=== PATIENT | male | born 1955 | race Caucasian/White ===

== ENCOUNTER 2018-10-04 08:34 | Inpatient (IN) ==
--- NOTE | 2018-10-04 10:08 | PROVIDER DOCUMENTATION ---
HPI-General Adult - General Chief Complaint: Dizziness Stated Complaint: GENERAL Time Seen by Provider: 10/04/18 09:09 Source: patient Allergies/Adverse Reactions: Patient Allergies Allergy/AdvReac Type Severity Reaction Status Date / Time No Known Allergies Allergy Verified 04/25/18 16:14 Home Medications: Home Medication List Medication Instructions Recorded Confirmed Last Taken Type Amiloride [Midamor] 5 mg PO DAILY 04/25/18 08/23/18 08/22/18 History Citalopram [Celexa] 20 mg PO QHS 04/25/18 08/23/18 08/22/18 History Furosemide [Lasix] 80 mg PO DAILY 04/25/18 08/23/18 08/22/18 History Levothyroxine [Synthroid] 112 microgm PO DAILY 04/25/18 08/23/18 08/22/18 History Losartan [Cozaar] 25 mg PO DAILY 04/25/18 08/23/18 08/22/18 History Nadolol 10 mg PO DAILY 04/25/18 08/23/18 08/22/18 History Lactulose 30 ml PO BID #40 udc 04/28/18 08/23/18 08/22/18 Rx Multivit,Fe,Ca,FA & Min [Thera M 1 each PO DAILY tablet 04/28/18 08/23/1808/22 Rx Plus] Rifaximin [Xifaxan] 550 mg PO BID #40 tab 04/28/18 08/23/18 08/22/18 Rx - History of Present Illness -Gen Adult Nature of Presenting Problems: feels lightheaded for 2 days. Sx are constant, nothing makes better nor worse, Denies vertigo. No fever, no headache. No CP, no palpitations, no SOB. Has nausea, no vomiting, no abd pain. Legs are weak, swollen for 3 days.. Says hx of cirrhosis, high ammonia, is on lactulose. Review of Systems - Adult - REVIEW OF SYSTEMS - ADULT Constitutional: reports: see HPI Eyes: reports: no symptoms reported Ears, Nose, Mouth & Throat: reports: no symptoms reported Cardiovascular: reports: see HPI, edema Respiratory: reports: no symptoms reported Gastrointestinal: reports: see HPI Genitourinary: reports: no symptoms reported Musculoskeletal: reports: see HPI Integumentary: reports: no symptoms reported Neurological: reports: see HPI Psychiatric: reports: no symptoms reported Endocrine: reports: no symptoms reported Hematologic/Lymphatic: reports: no symptoms reported Allergic/Immunologic: reports: no symptoms reported Past History - Adult - PAST MEDICAL HISTORY-ADULT Review of Records: reports: Medications Reviewed Gastrointestinal: reports: other (liver cirrhosis) Physical Exam-General - PHYSICAL EXAM-ADULT Initial Vital Signs Reviewed: Yes - CONSTITUTIONAL General Appearance: alert, other (chronically ill) - EYES Eyes: PERRL/EOMI, pink conjunctivae - HEAD, EARS, NOSE, MOUTH & THROAT HENMT: normocephalic/atraumatic, moist mucous membranes, normal ENT inspection, pharynx normal - NECK Neck: non-tender, full range of motion, supple - RESPIRATORY Respiratory: lungs clear, normal breath sounds, no pleuratic chest pain, no res piratory distress, no accessory muscle use - CARDIOVASCULAR Cardiovascular: regular rate, rhythm, other (4+ LE edema, extends to abd) - GASTROINTESTINAL (ABDOMEN) Abdominal Exam: normal bowel sounds, soft, other (mild LLQ tenderness) - MUSCULOSKELETAL Back Exam: normal inspection, no CVA tenderness, no vertebral tenderness Extremity: normal range of motion, non-tender - SKIN Integumentary: normal color, normal turgor, warm/dry, pallor - NEUROLOGIC Neurologic: grossly normal, no motor/sensory deficits, other (CN II-XII intact, DTRs intact. no asterixsis. Holds all extremities in extension well) - PSYCHIATRIC Psych/Mental Status: normal mood/affect, normal thought content, normal thought process, oriented x 3 Progress - PLAN OF CARE/RESULTS Progress/Plan/Lab Results: Vital Signs - 8 hr 10/04/18 08:40 Temperature 97.7 F Pulse Rate 76 Respiratory Rate 24 Blood Pressure 153/71 O2 Sat by Pulse Oximetry 100 Laboratory Results - last 24 hr 10/04/18 09:24 POC Glucose 134 H Orders Category Date Time Status CHEST-1 VIEW [RAD] Stat Exams 10/04/18 09:[address] HEAD W/O CONTRAST [CT] Stat Exams 10/04/18 09:56 Ordered ACETAMINOPHEN [TDM] Stat Lab 10/04/18 09:56 Uncollected ALCOHOL BLOOD Stat Lab 10/04/18 09:56 Uncollected AMMONIA [CHEM] Stat Lab 10/04/18 09:56 Uncollected CBC WITH DIFF [HEME] Stat Lab 10/04/18 09:56 Uncollected COMPREHENSIVE METABOLIC PANEL [CHEM] Stat Lab 10/04/18 09:56 Uncollected MAGNESIUM [CHEM] Stat Lab 10/04/18 09:56 Uncollected PHOSPHORUS [CHEM] Stat Lab 10/04/18 09:56 Uncollected SALICYLATES [TDM] Stat Lab 10/04/18 09:56 Uncollected URINALYSIS W/POSS RFLX CULT [URINALYSIS] Stat Lab 10/04/18 09:56 Uncollected Result Diagrams: 10/04/18 09:08 10/04/18 09:08 - CONSULTS/PCP/HOSPITALIST Notification #1 *Consult/PCP/Hospitalist*: Junaid Time Discussed: 13:08 Consult Disposition: Admit Departure - Departure Date of Disposition Decision: 10/04/18 Time of Disposition Decision: 13:10 DIAGNOSIS: Increased ammonia level Altered mental status Qualifiers: Altered mental status type: disorientation Qualified Code(s): R41.0 - Di sorientation, unspecified Anemia Qualifiers: Anemia type: other cause Other causes of anemia: other cause, not classified Qualified Code(s): D64.89 - Other specified anemias Cirrhosis Qualifiers: Hepatic cirrhosis type: unspecified hepatic cirrhosis Ascites presence: with ascites Qualified Code(s): K74.60 - Unspecified cirrhosis of liver; R18.8 - Other ascites Disposition: ADMITTED INPATIENT 09 Certified Medical Emergency: Emergent Condition: Good Referrals and Follow-Ups: Artem Quiroga MD [Primary Care Provider] - - Critical Care Note This patient required my direct & personal management of CC.: No Attestation - Physician/ HENNA Attestation Patient care was provided by Advanced Practice Provider:: No The physician spent face to face time with patient:: Yes Advanced Practice Provider documentation review:: Supervising physician onsite and consulted in the evaluation and care of this patient. The physician did have a face to face encounter with the patient.
--- NOTE | 2018-10-04 10:11 | ED EKG INTERP ---
This chart was entered by Briseida Doyle Scribe, acting as scribe for Cliff Adam MD. EKG Interpretation - EKG Time of EKG reading by physician:: 08:49 EKG Read and Signed by:: Cliff Adam EKG Interpretation (*Must complete 3 of following elements*): Normal (borderline) Rate: 69 Rhythm: nsr Sparks: normal QRS: other (low voltage qrs) GA Interval: normal ST Wave: normal Attestation - Physician/ HENNA Attestation Patient care was provided by Advanced Practice Provider:: No The physician spent face to face time with patient:: Yes Advanced Practice Provider documentation review:: Supervising physician onsite and consulted in the evaluation and care of this patient. The physician did have a face to face encounter with the patient. This chart was documented by the indicated scribe, (Briseida Doyle Scribe) and accurately reflects the services I performed and decisions made by me, Cliff Adam MD, as attested by the provider's signature.
--- NOTE | 2018-10-04 10:19 | Diag Imaging Result Doc PS360 ---
CHEST-1 VIEW - 10/04/2018 INDICATION: ams COMPARISON: 04/25/2018 FINDINGS: The lungs are normally expanded and clear. Heart size and mediastinal contours are normal. No pneumothorax or pleural effusion. IMPRESSION: Negative exam. Electronically signed by Kevin Mojica 10/04/2018 10:16 AM
[2018-10-04 10:26] LABS: BASO# 0.02 X1000 (0.0-0.2); BASO% 0.6 % (0.0-0.8); EOS# 0.12 X1000 (0.0-0.7); EOS% 3.4 % (0.0-10.0); HEMATOCRIT 22.6 % (42.0-52.0); HEMOGLOBIN 7.4 g/dL (14.0-18.0); IMM GRAN# 0.02 X1000 (0.0-0.04); IMM GRAN% 0.6 % (0.0-0.5); LYMPH# 0.56 X1000 (1.2-3.4); LYMPH% 16.1 % (20.5-51.1); MCH 30.5 PG (27-31); MCHC 32.7 g/dL (33-37); MONO# 0.41 X1000 (0.11-0.59); MONO% 11.8 % (1.7-9.3); MPV 9.7 FL (7.4-10.4); NEUT# 2.35 X1000 (1.4-6.5); NEUT% 67.5 % (42.2-75.2); PLT 101 X1000 (130-400); RBC 2.43 XMIL (4.7-6.1); RDW 14.8 % (11.5-14.5); WBC 3.48 X1000 (4.8-10.8)
--- NOTE | 2018-10-04 10:44 | Diag Imaging Result Doc PS360 ---
EXAM: CT HEAD W/O CONTRAST 10/04/2018 HISTORY: AMS TECHNIQUE: This exam was performed using automated exposure control, adjustment of mA or kV according to patient size, and/or use of iterative reconstruction technique. COMMENT: There are calcifications in the globus pallidus bilaterally. There is no evidence of mass effect, bleed, or abnormal extra-axial fluid collection. There is some mucosal thickening in the right maxillary sinus. Compared to 04/25/2018 the appearance the brain has not changed significantly. IMPRESSION: No evidence of acute intracranial disease. Electronically signed by Guy Buchanan 10/04/2018 10:42 AM
[2018-10-04 11:00] LABS: URINE SOURCE CLEAN CATCH
[2018-10-04 11:02] LABS: ACETAMINOPHEN < 1.2 ug/mL (10-30); AGAP 7; ALB/GLOB RATIO 0.5; ALKALINE PHOSPHATASE 134 U/L (32-122); BUN 24 mg/dL (8-22); CHLORIDE 111 mmol/L (98-107); COSMO 276; CREATININE 1.6 mg/dL (0.7-1.2); ESTIMATED GFR 44; GLUCOSE 133 mg/dL (70-104); GOT 35 U/L (10-34); GPT 20 U/L (10-44); MAGNESIUM 2.2 mg/dL (1.5-2.7); PHOSPHORUS 2.6 mg/dL (2.7-4.5); POTASSIUM 4.3 mmol/L (3.5-5.1); SALICYLATES < 3.00 mg/dL (3-10); SODIUM 135 mmol/L (136-145); TCO2 17 mmol/L (25-35); TOTAL BILIRUBIN 2.13 mg/dL (0.20-1.00); TOTAL PROTEIN 5.7 g/dL (6.3-8.3)
[2018-10-04 11:08] LABS: UR EPITHELIAL CELLS <10 /HPF (<10); URINE BACTERIA NEGATIVE /HPF; URINE RBC TNTC /HPF (<10); URINE WBC <10 /HPF (<10)
[2018-10-04 11:23] LABS: BILIRUBIN URINE NEGATIVE (NEGATIVE); BLOOD URINE LARGE (NEGATIVE); COLOR ORANGE; GLUCOSE URINE NEGATIVE (NEGATIVE); KETONE URINE TRACE mg/dL (NEGATIVE); LEUKOCYTES URINE NEGATIVE (NEGATIVE); NITRITE URINE NEGATIVE (NEGATIVE); PROTEIN URINE 70 mg/dL (NEGATIVE); SP GRAVITY URINE 1.018; TURBIDITY URINE HAZY (CLEAR); UROBILINOGEN URINE NORMAL (NORMAL)
--- NOTE | 2018-10-04 11:56 | EKG Report ---
Test Performed on : 10/04/2018 08:49:49 AM Test Reason : ED. NO EKG ORDER FOR MUSE Blood Pressure : / mmHG Vent. Rate : 069 BPM Atrial Rate : 069 BPM P-R Int : 168 ms QRS Dur : 100 ms QT Int : 446 ms P-R-T Axes : 031 -06 042 degrees QTc Int : 477 ms Normal sinus rhythm. Low voltage QRS Borderline ECG When compared with ECG of 25-APR-2018 10:38, QRS voltage has decreased Nonspecific T wave abnormality now evident in Inferior leads Nonspecific T wave abnormality now evident in Anterior leads Unconfirmed Result
[2018-10-04 12:32] LABS: UR AMPHETAMINES QUAL NONE DETECTED (NONE DETECT); UR BARBITUATES QUAL NONE DETECTED (NONE DETECT); UR BENZODIAZEPIN QUAL NONE DETECTED (NONE DETECT); UR CANNABINOIDS QUAL NONE DETECTED (NONE DETECT); UR COCAINE QUAL NONE DETECTED (NONE DETECT); UR METHADONE QUAL NONE DETECTED (NONE DETECT); UR OPIATES QUAL NONE DETECTED (NONE DETECT); UR OXYCODONE QUAL NONE DETECTED (NONE DETECT); UR PCP QUAL NONE DETECTED (NONE DETECT)
[2018-10-04] MEDS ORDERED: NS 1,000 ML IV ONE (13:51)
[2018-10-04 13:53] LABS: INR 1.77; PROTIME 21.9 Seconds (11.0-16.0)
[2018-10-04 13:54] LABS: PTT 53.6 Seconds (22.3-41.8)
[2018-10-04] MEDS ORDERED: SODIUM CHLORIDE 0.9% INJ SCH (15:30)
[2018-10-04] MEDS ORDERED: XIFAXAN PO ONE (16:41)
[2018-10-04] MEDS ORDERED: LACTULOSE PO ONE (16:41)
[2018-10-04] MEDS: PROTONIX IV SCH (17:22)
[2018-10-04] MEDS: LACTULOSE PO SCH (21:07)
[2018-10-04] MEDS: XIFAXAN PO SCH (21:07)
[2018-10-04] MEDS: CELEXA PO SCH (21:07)
--- NOTE | 2018-10-04 22:32 | HISTORY AND PHYSICAL ---
CHIEF COMPLAINT: Dizziness and confusion. HISTORY OF PRESENT ILLNESS: The patient is a 62-year-old white male, followed by myself and by Dr. Hall. He suffers from cirrhosis of the liver related to FLORES. The patient has hepatic encephalopathy, which is followed by Dr. Hall and he remains on without b.i.d. dosing on Xifaxan and lactulose 30 mL b.i.d. Patient has been taking the Xifaxan as Dr. Hall has been giving him samples as in the past his insurance was not covering the Xifaxan. MEDICATIONS: Otherwise, the patient remains on Synthroid 112 mcg daily, Celexa 20 mg p.o. at bedtime, amiloride 12.5 mg p.o. daily, Lasix 80 mg p.o. daily, losartan 25 mg p.o. daily, nadolol 20 mg p.o. daily, spironolactone 20 mg P.o. daily, Xifaxan and 551 p.o. b.i.d. ALLERGIES: NKDA. PAST MEDICAL HISTORY: 1. Cirrhosis of the liver with hepatic encephalopathy and esophageal varices, followed by Dr. Hall. 2. Chronic back pain. 3. Hypothyroidism diagnosed March 2010. 4. B12 deficiency. 5. Hypertension. PAST SURGICAL HISTORY: 1. L3, L4, L5 fusion in 1997. 2. Lumbar laminectomy x2. 3. Right inguinal hernia repair, October 2015. 4. Umbilical hernia repair, March 2016. FAMILY HISTORY: Notable for father with NV at age 79. No strokes, diabetes, hypertension or cancer in the family. SOCIAL HISTORY: The patient lives in [place]. He has been within the past year and a half. He has 2 children. He is on disability secondary to his back and the cirrhosis. He has never been a smoker. Does not drink alcohol. REVIEW OF SYSTEMS: Negative except as above. PHYSICAL EXAMINATION: VITAL SIGNS: See chart. GENERAL: Moderately obese white male. SKIN: No major bruises. No petechia. HEENT: PERRL, EOMI. Sclerae anicteric. OP, no redness. Tongue in the midline. NECK: No LA, TMG, JVD, bruits. CARDIOVASCULAR: RRR. No major distinct murmur. LUNGS: CTA. ABDOMEN: Protuberant, soft. Does appear to be some ascites. GENITOURINARY/RECTAL: Deferred. EXTREMITIES: One to 2+ lower extremity edema. NEUROLOGIC: Cranial nerves 2-12 are intact, nonfocal. The patient is alert and oriented x3. Does show signs of mild confusion. LABORATORY DATA: Urine drug screen is negative. Blood alcohol level negative. Acetaminophen less than 1.2. Salicylates less than 3. Sodium 135, potassium 4.3, chloride 111, CO2 of 17, glucose 133, BUN 24, creatinine 1.6. Calcium 8.0, total bilirubin 2.13, total protein 5.7, albumin 2.0, alkaline phosphatase 134, SGOT 35, SGPT 20, magnesium 2.2, phosphorus 2.6, ammonia 91. Hemoglobin 7.4, hematocrit 22.6, white count 3.48, platelets 101,000. Chest x-ray, 1 view, negative exam. CT head without contrast reveals no evidence of acute intracranial disease, there are some calcifications in the globus pallidus bilaterally. ASSESSMENT: 1. Confusion, thought related to hepatic encephalopathy. 2. Pronounced anemia. 3. Esophageal varices with no history of recent bleed, per patient report. 4. Cirrhosis of the liver related to FLORES. 5. Hypertension. 6. Hypothyroidism. 7. History of B12 deficiency. 8. Chronic back pain. 9. Pancytopenia. PLAN: Will leave off his diuretics tonight. Otherwise, continue his other medications and will resume the diuretics tomorrow. He has received a little mild hydration due to the dizziness and we will give him 2 units PRBCs, each units transfused over 4 hours each. We will continue the Xifaxan and lactulose vigorously. We will place him on IV PPI and check Hemoccult of the stool. We will monitor his ammonia level closely. cc: Artem Quiroga MD
[2018-10-05] MEDS: SYNTHROID PO SCH (06:40)
[2018-10-05 07:59] LABS: CALCIUM 8.2 mg/dL (8.8-10.2); CREATININE 1.5 mg/dL (0.7-1.2); POTASSIUM 4.2 mmol/L (3.5-5.1)
[2018-10-05 08:08] LABS: HEMATOCRIT 25.6 % (42.0-52.0); HEMOGLOBIN 8.5 g/dL (14.0-18.0); MCH 31.6 PG (27-31); MCHC 33.2 g/dL (33-37); MCV 95.2 FL (81-99); MPV 10.4 FL (7.4-10.4); RBC 2.69 XMIL (4.7-6.1); RDW 15.1 % (11.5-14.5); WBC 5.59 X1000 (4.8-10.8)
--- NOTE | 2018-10-05 08:58 | PROGRESS NOTE ---
DATE: 10/05/2018 SUBJECTIVE: Patient feels clear with his mentation. He denies abdominal pain. He has not seen any blood rectally, but he does test heme-positive for blood. OBJECTIVE: Afebrile. Pulse 67, respirations 19, blood pressure 117/46, and O2 saturation on 2 L is 100%.CV: RRR. Lungs: Clear. Abdomen: Protuberant. Some ascites noted. No point tenderness. Extremities: Trace to 1+ lower extremity edema. Neurologic: Nonfocal. Patient does not seem confused today compared to yesterday. He is improved. LABORATORY: White count 5.5, hemoglobin 8.5 after 2 units PRBCs transfused last evening. Platelet count 98,000. Sodium 136, potassium 4.2, chloride 112, CO2 18. BUN 22, creatinine 1.5, calcium 8.2. Ammonia down to 53. ASSESSMENT: 1. Hepatic encephalopathy with confusion, improved. 2. Pronounced anemia with heme-positive stool. 3. Esophageal varices with no history of recent bleed per patient report. 4. Cirrhosis of the liver related to FLORES followed by Dr. Bonilla. 5. Hypertension. 6. Hypothyroidism. 7. B12 deficiency. 8. Chronic back pain. 9. Pancytopenia. PLAN: We will ask Dr. Bonilla to see the patient in consultation. Continue IV PPI. Resume his diuretics of Aldactone, amiloride, and Lasix today while continuing his low-dose nadolol and losartan. He also will continue his high dose lactulose and Xifaxan. cc: Artem Quiroga MD
[2018-10-05] MEDS: THERA M PLUS PO SCH (09:37)
[2018-10-05] MEDS: COZAAR PO SCH (09:37)
[2018-10-05] MEDS: LACTULOSE PO SCH ×2 (09:37→21:18)
[2018-10-05] MEDS: XIFAXAN PO SCH ×2 (09:37→21:18)
[2018-10-05] MEDS: CORGARD PO SCH (09:37)
[2018-10-05] MEDS: LASIX PO SCH (09:38)
[2018-10-05] MEDS: MIDAMOR PO SCH (09:39)
[2018-10-05] MEDS: PROTONIX IV SCH (19:53)
--- NOTE | 2018-10-05 20:14 | GASTROENTEROLOGY CONSULTATION ---
DATE: 10/05/2018 CONSULTING PHYSICIAN: Dr. Quiroga. REASON FOR CONSULT: Anemia. HISTORY: This is a 62-year-old gentleman who has a history of cirrhosis of the liver with portal hypertension and history of encephalopathy. 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 I had seen him a few weeks ago at the office with complaints of swelling of his abdomen and lower extremities. He is currently on Amiloride and Lasix. He was admitted to the hospital after he presented himself with complaints of confusion and hallucination. His ammonia level was found to be elevated and he was admitted for further evaluation and treatment. During his hospitalization, he was found to have a hemoglobin of 7.4 and hematocrit 22.6. He has also had heme-positive stool. Consult was obtained for further evaluation and treatment. Patient has had loose bowel movements. He is currently on lactulose and also takes Xifaxan. He tells me that he has not seen any signs of active bleeding. He has not had any melena or bright red blood per rectum. His appetite has been good. He has been eating well and he is trying to follow a 2 g sodium diet. He has had no fever or chills, denies any headache, but has been feeling weak. Denies any chest pain, shortness of breath, or palpitations. Denies any cough, sputum, or hemoptysis. Has not had any dysuria, polyuria, or hematuria. PAST MEDICAL HISTORY: Significant for: 1. Hypertension. 2. Hypothyroidism. 3. Carries a diagnosis of cirrhosis of the liver with portal hypertension. PAST SURGICAL HISTORY: 1. He has had back surgery x4. 2. Herniorrhaphy. 3. He has had multiple EGDs and esophageal variceal ligations done. MEDICATIONS: Prior to hospitalization, he has been on: 1. Amiloride 5 mg p.o. daily. 2. Lasix 100 mg p.o. daily. 3. Lactulose 30 mL p.o. b.i.d. 4. Xifaxan 550 mg p.o. b.i.d. 5. Nadolol 10 mg every day. 6. Multivitamin. 7. Cozaar. 8. Synthroid. 9. Celexa. ALLERGIES: No known drug allergies. SOCIAL HISTORY: He is a . Lives with his daughter. He does not smoke, does not drink, and does not do illicit drugs. FAMILY HISTORY: Noncontributory. REVIEW OF SYSTEMS: As per HPI as above. PHYSICAL EXAMINATION: General: A very pleasant white male is lying in bed. He is conscious, alert, and responsive to questions. Does not appear to be confused or hallucinating at this time. Vital Signs: Temperature 99 degrees Fahrenheit, pulse is 61 per minute, breathing 16, blood pressure 112/56. Head: Atraumatic, normocephalic. Eyes: Conjunctivae are pale. Sclerae are anicteric. ENT: Nares are patent. No discharge. Mouth: Buccal mucosa is moist. Throat is normal. Neck: Neck is supple. No lymphadenopathy or thyromegaly. Chest: Bilaterally symmetrical, moving with respirations. Breath sounds audible bilaterally. No rhonchi or crepitations could be heard. Heart: S1, S2 audible. No murmur could be appreciated. Abdomen: Distended and slightly tense. Has some anterior abdominal wall edema. Has large ascites. I could not appreciate any mass or visceromegaly. Bowel sounds are audible. Extremities: He has 3 to 4+ pitting edema bilaterally in his lower extremities. No asterixis noted. ACCOUNT MANAGEMENT SPECIALIST: Grossly intact. No sensory or motor deficit. LABS: Reviewed, which showed WBC today is 5.59, hemoglobin 8.5, hematocrit 25.6, MCV 95.2, and platelets were 98. Sodium 136, potassium 4.2, chloride 112, bicarb is 18, BUN is 12, creatinine 1.5, glucose 121. Yesterday, AST was 35, ALT 20, alkaline phosphatase 134, total bilirubin as 2.13. Toxicology screen was negative. Urinalysis: No evidence of acute urinary tract infection noted. He had a head CT done which was negative. IMPRESSION: 1. Hepatic encephalopathy. Most likely, anemia could be the precipitating factor. I do not see any other reason to be the precipitating factor. He is not actively bleeding. He has a history of portal gastropathy during my last esophagogastroduodenoscopy, and he may have a little bit of blood from that which may have caused the heme-positive stool, but he does not have any signs of active bleeding now requiring any intervention. He does have tense ascites. He has developed diuretic resistant ascites, and he needs therapeutic paracentesis. He will be scheduled for that in the morning and will need albumin replacement during that. 2. Cirrhosis of the liver with portal hypertension and hepatic encephalopathy. He has been seen by Dr. Martinez at [facility]. During his last visit in June, he was undecided regarding liver transplant. I had a discussion with his daughter today and explained to her in front of the patient about the prognosis, which he seems to be deteriorating rapidly considering the fact that he has developed a diuretic resistant ascites now, and I have encouraged him to follow up with Dr. Martinez at [facility] since his MELD score has gone up to 20 this time, and discuss with him about the possibility for evaluation for liver transplant. In the meantime, I would continue the diuretics and continue to recheck labs and will follow. cc: MD Artem Vargas MD
[2018-10-05] MEDS: CELEXA PO SCH (21:18)
[2018-10-06] MEDS: SYNTHROID PO SCH ×2 (05:54→06:59)
[2018-10-06 08:04] LABS: CALCIUM 7.6 mg/dL (8.8-10.2); CREATININE 1.5 mg/dL (0.7-1.2); POTASSIUM 3.5 mmol/L (3.5-5.1)
--- NOTE | 2018-10-06 09:02 | PROGRESS NOTE ---
DATE: 10/06/2018 SUBJECTIVE: Patient without melena, hematochezia, or hematemesis. Does have tense ascites and is scheduled for therapeutic paracentesis later today per Dr. Bonilla. OBJECTIVE: Vital signs: T-max 99.4 degrees orally, blood pressure 125/55, pulse 60, respirations 16. General: Obese, white male. Skin: Dry skin which is fairly prominent over the lower extremities. Eyes: Sclerae anicteric. Cardiovascular: Regular rate and rhythm. Lungs: Clear. Abdomen: Protuberant. Active bowel sounds. Pronounced ascites noted, tense. Extremities: 2+ lower extremity edema. Neurologic: Cranial nerves are intact. No asterixis. Mentation baseline normal. LABORATORY DATA: Sodium 134, potassium 3.5, chloride 111, CO2 is 17, BUN 21, creatinine 1.5, calcium 7.6, ammonia 61. ASSESSMENT: 1. Hepatic encephalopathy with confusion, improved. 2. Profound anemia, improved after 2 units post packed red blood cells transfused. 3. Heme-positive stool. No signs of active bleeding. 4. Esophageal varices and portal hypertension related to cirrhosis of the liver related to non- alcoholic steatohepatitis. 5. 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 Bonilla and by the transplant team at [facility]. 6. Hypertension. 7. Hypothyroidism. 8. B12 deficiency. 9. Chronic back pain. 10. Pancytopenia. 11. Renal insufficiency, likely hepatorenal syndrome, mild. PLAN: Continue diuretics of Aldactone, amiloride, Lasix. He is scheduled for therapeutic paracentesis today. We got him on IV PPI. He is on low-dose nadolol and losartan and his blood pressure is tolerating that so far. He remains on lactulose and Xifaxan at high dose. He is on some Celexa for depression and I will continue to follow along and monitor his labs, especially his hemoglobin. cc: Artem Quiroga MD
[2018-10-06 09:05] LABS: HEMATOCRIT 21.7 % (42.0-52.0); HEMOGLOBIN 7.1 g/dL (14.0-18.0); MCH 30.9 PG (27-31); MCHC 32.7 g/dL (33-37); MCV 94.3 FL (81-99); MPV 10.6 FL (7.4-10.4); RBC 2.3 XMIL (4.7-6.1); RDW 14.8 % (11.5-14.5); WBC 3.23 X1000 (4.8-10.8)
[2018-10-06] MEDS: LACTULOSE PO SCH ×2 (09:33→21:03)
[2018-10-06] MEDS: XIFAXAN PO SCH ×2 (09:34→21:10)
[2018-10-06] MEDS: THERA M PLUS PO SCH (09:34)
[2018-10-06] MEDS: CORGARD PO SCH (09:34)
[2018-10-06] MEDS: LASIX PO SCH (09:34)
[2018-10-06] MEDS: COZAAR PO SCH (09:34)
[2018-10-06] MEDS: MIDAMOR PO SCH (10:21)
--- NOTE | 2018-10-06 12:17 | Diag Imaging Result Doc PS360 ---
EXAM: US PELVIC NON-OB (LIMITED) HISTORY: ascites, hx cirrhosis TECHNIQUE: Ultrasound of the lower quadrants COMPARISON: None. FINDINGS: Patient was scheduled for a paracentesis. There is no fluid collection large enough to drain. No paracentesis performed. Electronically signed by David Daley 10/06/2018 12:15 PM
[2018-10-06] MEDS: ALBUMIN 25% IV ONE ×2 (12:34→13:20)
--- NOTE | 2018-10-06 14:31 | CARDIOLOGY CONSULTATION ---
DATE: 10/06/2018 REASON FOR CONSULTATION: Cardiology was consulted to rule out right heart failure to account for his symptoms. HISTORY OF PRESENT ILLNESS: Patient is admitted with cirrhosis, altered mental status, elevated ammonia levels. Given his increasing abdominal distention, paracentesis was planned; however, there was not enough ascitic fluid. Cardiology was consulted to make sure there is no right heart failure component in the patient. The patient is diagnosed to have FLORES. He is admitted with increasing complaints of confusion and hallucinations. He was noted to be severely anemic. Hemoglobin of 7.4 and hematocrit 22.6. Has received 1 unit transfusion and he is also currently on lactulose and Xifaxan. From a cardiac standpoint, he follows up with the liver transplantation Center at [place] [facility]. He has no previous cardiac history, has not seen a inside sales manager either in [place] or here recently. He denies any chest pain. His main problems have been with cirrhosis. There is no palpitations. There is no hemoptysis. There is no history of fevers. There is no cough. There is no previous cardiac history. PAST MEDICAL HISTORY: 1. FLORES cirrhosis of the liver with portal hypertension and splenomegaly. 2. Hypertension. 3. Hypothyroidism. 4. Back surgery in the past. 5. Herniorrhaphy. 6. Has had multiple EGDs with esophageal variceal ligation. MEDICATIONS: Include amiloride 5, Lasix 100 mg a day, lactulose 30, Xifaxan 550 b.i.d., nadolol 10 mg every day, Cozaar, Synthroid and Celexa. ALLERGIES: He is not known to be allergic to any medications. REVIEW OF SYSTEM: Gastrointestinal: System as above. Respiratory: There is no history of cough, expectoration, hemoptysis. There is no history of fevers or chills. Endocrine: Stable. PHYSICAL EXAMINATION: Vital Signs: Blood pressure 122/55. Neck: Jugular venous pressure could not be accurately assessed. Cardiovascular: First and second heart sounds were heard. There was a systolic murmur. Respiratory: Decreased breath sounds at base. There are no crepitations or rhonchi. Abdomen: Distended. Bowel sounds were heard. Central nervous system: Alert and oriented. Was moving all 4 extremities. Extremities: Edema was noted. LABORATORY EXAMINATION: Urine screen was negative. Blood alcohol level was negative. Acetaminophen level was negative. Salicylate less than 3. Sodium 135, potassium 4.3, chloride 111, CO2 17, glucose 133, BUN 24, creatinine 1.6, magnesium 2.2. IMAGING: Chest x-ray unremarkable. CT of the head without contrast reveals no acute obvious disease. ASSESSMENT AND PLAN: Mr. Igor Sotelo is a 62-year-old, gentleman with history of FLORES. Has had esophageal varices and banding done in the past, is admitted with increasing confusion. Was noted to be profoundly anemic with no obvious gastrointestinal cause of bleeding at the present time. He received 1 unit of blood transfusion today. Drainage of ascites was planned; however, there was minimal ascites. Cardiology was consulted to see if he has features of right heart failure. His last echocardiogram in 2016 was unremarkable, has not been evaluated with any cardiac studies in the last couple of years. He follows up with the liver transplant group in [place] and he has not had any cardiac evaluation there as he had no symptoms. RECOMMENDATIONS: From a cardiac standpoint, to start with, we will get an echocardiogram to assess right ventricular and systolic left ventricular function as well as to evaluate for see if he has any significant pulmonary hypertension. If he does have severe pulmonary arterial hypertension, then we will plan for a left heart catheterization if required, but at the present time, I have not made any changes. We will start with an echocardiogram. Thank you for the consult. We will follow hospital course. cc: MD Artem Caruso MD
--- NOTE | 2018-10-06 14:47 | GASTROENTEROLOGY PROGRESS NOTE ---
DATE: 10/06/2018 SUBJECTIVE: Patient is awake and alert now. He is in no acute distress. At the time of my evaluation, he had not been down for paracentesis. Since then, he went down and Radiology reports that there was not enough ascitic fluid for therapeutic paracentesis. OBJECTIVE: Vital Signs: Temperature 98.5 degrees, pulse 60, respirations 16, blood pressure 125/55. General: Patient is awake, alert, no acute distress. Abdomen: Obese, seen to have ascites present. Otherwise soft. LABORATORY DATA: Hematology WBC 3.23, hemoglobin 7.1, hematocrit 21.7, MCV 94.3, platelets 67,000. Chemistry: Sodium 134, potassium 3.5, chloride 111, CO2 17, BUN 21, creatinine 1.5, glucose 93. ASSESSMENT AND PLAN: 1. Recent hepatic encephalopathy. Seems to have resolved. Continue Xifaxan. 2. Anemia. Patient has received 1 unit of packed red blood cells. Hemoglobin and hematocrit is lower today. Transfuse additional unit of PRBCs. 3. Hemoccult-positive stool with no active bleeding. 4. History of esophageal varices and portal hypertension. Continue current medications. 5. Cirrhosis of the liver. Continue current medications. The patient has also been seen at [facility]. We will continue to monitor. Continue diuretic. He had a scheduled paracentesis but apparently there was not enough fluid for removal. Continue lactulose, continue Xifaxan. Will continue to follow and further plans will be made as needed. Case discussed with Dr. Bonilla. Will order ECHO and get cardiology consult to evaluate for possible congestive heart failure resulting in anasarca. Dictated by KEVIN Saenz for Prosper Bonilla MD cc: KEVIN Watson MD Stephen W. Harbin, MD [facility] H[facility]PITALOnesimo
[2018-10-06] MEDS ORDERED: NS 500 ML ONE (16:24)
[2018-10-06] MEDS: PROTONIX IV SCH (16:24)
[2018-10-06] MEDS: CELEXA PO SCH (21:10)
[2018-10-07] MEDS: SYNTHROID PO SCH (06:24)
[2018-10-07 07:12] LABS: HEMATOCRIT 21.9 % (42.0-52.0); HEMOGLOBIN 7.3 g/dL (14.0-18.0); MCHC 33.3 g/dL (33-37); MCV 96.1 FL (81-99); RBC 2.28 XMIL (4.7-6.1); RDW 14.5 % (11.5-14.5); WBC 2.51 X1000 (4.8-10.8)
[2018-10-07 07:24] LABS: CALCIUM 7.8 mg/dL (8.8-10.2); CREATININE 1.6 mg/dL (0.7-1.2); POTASSIUM 3.6 mmol/L (3.5-5.1)
[2018-10-07] MEDS: LASIX PO SCH (09:30)
[2018-10-07] MEDS: LACTULOSE PO SCH ×2 (09:31→20:31)
[2018-10-07] MEDS: MIDAMOR PO SCH (09:31)
[2018-10-07] MEDS: CORGARD PO SCH (09:33)
[2018-10-07] MEDS: THERA M PLUS PO SCH (09:35)
[2018-10-07] MEDS: XIFAXAN PO SCH ×2 (09:35→20:31)
[2018-10-07] MEDS: COZAAR PO SCH (09:35)
[2018-10-07] MEDS: ZOFRAN ODT PO PRN ×2 (10:35→16:08)
--- NOTE | 2018-10-07 11:40 | PROGRESS NOTE ---
DATE: 10/07/2018 SUBJECTIVE: Patient lying in bed. Complains of some lower abdominal discomfort earlier this morning, none now. He is stooling well on the lactulose and Xifaxan. Was scheduled yesterday for paracentesis, but there was not enough ascitic fluid to do that. OBJECTIVE: Vital Signs: Afebrile, pulse 70, respirations 18, blood pressure 111/56, O2 saturation room air 100%. Cardiovascular: Frequent ectopy. Lungs: Clear to auscultation. Abdomen: Very protuberant, soft. Active bowel sounds. No point tenderness. Extremities: 1 to 2+ lower extremity edema, nonpitting. Neurologic: No asterixis. Alert and oriented x3. Moves all extremities well. No major confusion identified. LABS: White count has dipped to 2.5, hemoglobin 7.3 after 1 more unit of PRBCs transfused yesterday, that is, to take 3 in since admission, platelets 62,000. Sodium 133, potassium 3.6, chloride 109, CO2 18, BUN 20, creatinine 1.6, glucose 101, calcium 7.8, ammonia 101. ASSESSMENT: 1. Hepatic encephalopathy, relatively mild. 2. Profound anemia. 3. Pancytopenia, thought related to cirrhosis. 4. Esophageal varices and portal hypertension, with no active bleeding identified. 5. Heme-positive stool. 6. Cirrhosis of the liver, thought related to nonalcoholic steatohepatitis, and followed by the transplant team at [facility]. 7. Renal insufficiency, thought related to hepatorenal syndrome. 8. Hypertension. 9. Hypothyroidism. 10. B12 deficiency. 11. Chronic back pain. 12. Morbid obesity. 13. Hematuria. PLAN: 1. He remains on the Aldactone, amiloride, and Lasix. 2. He is on intravenous proton pump inhibitor. 3. He is on low-dose nadolol and losartan, and tolerating that well. 4. He remains on high dose lactulose and Xifaxan with lability to the ammonia level. 5. He is on Celexa for depression. 6. He received some albumin within the past 36 hours. 7. Will check urinalysis with culture and sensitivity. We will check CTRSS due to marked gross hematuria. 8. Will monitor his white count, hemoglobin, and platelet count closely. May need additional transfusions. We will leave that to the GI team at this point. 9. Dr. Bonilla is talking to the transplant team to see if they can move his visit up from December. Overall very concerning events recently, and prognosis is generally poor. Transplant may be the main option now. He has not yet been placed on the transplant list. 10. Continue to give supportive care. cc: Artem Quiroga MD
[2018-10-07] MEDS ORDERED: ALBUMIN 25% IV ONE (11:45)
--- NOTE | 2018-10-07 11:54 | PROGRESS NOTE ---
DATE: 10/07/2018 NOTE: The patient had ectopy on exam this morning on CV exam, and his EKG does show new onset atrial fibrillation with controlled ventricular response. Cardiology is already seeing the patient in regard to possible right heart failure, and will defer this to their management. cc: Artem Quiroga MD
--- NOTE | 2018-10-07 15:42 | Diag Imaging Result Doc PS360 ---
CT ABDOMEN/PELVIS W/O CONTRAST - 10/07/2018 INDICATION: gross hematuria/renal insuff COMPARISON: 08/26/2015 FINDINGS: There is severe diffuse body wall edema. There is trace ascites. There is a trace left pleural effusion. Heart size is normal. Anemia is present. No radiodense renal stones. No hydronephrosis or hydroureter. No bowel obstruction or inflammation. Urinary bladder and rectum are normal. Stable fusion changes of the lower lumbar spine. There are moderate degenerative changes of the spine. No acute or suspicious bony lesion. IMPRESSION: Anasarca, ascites, and left pleural effusion. Negative for renal stone disease. This exam was performed using automated exposure control, adjustment of mA or kV according to patient size, and/or use of iterative reconstruction technique Electronically signed by Kevin Mojica 10/07/2018 3:40 PM
--- NOTE | 2018-10-07 16:08 | CARDIOLOGY PROGRESS NOTE ---
DATE: 10/07/2018 SUBJECTIVE: Mr. Soteol has no complaints today. No palpitations, no shortness of breath, and no abdominal pain. PHYSICAL EXAMINATION: Vital Signs: Afebrile. Heart rates appear predominantly in the 50s to 60s. His blood pressure is 106/49. General: No acute distress. Cardiovascular: He is sounds to be in a regular rate and rhythm. His telemetry currently shows sinus. He has 2+ bilateral lower extremity edema and warm and well perfused extremities. Chest: Clear bilaterally. No increased work of breathing. Abdomen: His abdomen is markedly protuberant. PERTINENT DATA: Sodium is 133, potassium 3.6, BUN 20, and creatinine 1.6. His carbon dioxide is 18. His white count is 2.5, hematocrit 21, and platelet count 62. ASSESSMENT: Mr. Sotelo is a 62-year-old male with nonalcoholic steatohepatitis. PLAN: He had a new onset of rate controlled atrial fibrillation today. He is not an anticoagulation candidate given his pancytopenia presently. We will ensure he has appropriate laboratories including a TSH and his echo is currently pending. Presently I do not have any acute recommendations. His atrial fibrillation is controlled when he is in it and he is asymptomatic. Again, echo is pending. cc: MD Artem Castro MD
[2018-10-07 16:13] LABS: URINE SOURCE CLEAN CATCH
[2018-10-07 16:16] LABS: UR EPITHELIAL CELLS <10 /HPF (<10); URINE BACTERIA NEGATIVE /HPF; URINE RBC TNTC /HPF (<10); URINE WBC <10 /HPF (<10)
[2018-10-07 16:19] LABS: BILIRUBIN URINE NEGATIVE (NEGATIVE); BLOOD URINE LARGE (NEGATIVE); COLOR ORANGE; GLUCOSE URINE NEGATIVE (NEGATIVE); KETONE URINE NEGATIVE (NEGATIVE); LEUKOCYTES URINE NEGATIVE (NEGATIVE); NITRITE URINE NEGATIVE (NEGATIVE); PROTEIN URINE 70 mg/dL (NEGATIVE); SP GRAVITY URINE 1.002; TURBIDITY URINE HAZY (CLEAR); UROBILINOGEN URINE NORMAL (NORMAL)
--- NOTE | 2018-10-07 16:33 | ECHO REPORT ---
ORDER DATE: 10/06/2018 INDICATION: Cirrhosis, hypertension, hypothyroidism. FINDINGS: 1. The right atrium is difficult to visualize on this patient as are the majority of his right heart structures. It appears to be dilated though. 2. Mild tricuspid regurgitation. RV systolic pressure of 48. 3. The right ventricle appears dilated with normal RV systolic function. 4. RV systolic pressure of 48. 5. Mild pulmonic insufficiency. 6. Moderate left atrial enlargement with a dimension of 5.3 cm. 7. No mitral valve prolapse. Trace mitral regurgitation. No mitral stenosis. 8. Dilated left ventricle with an end-diastolic dimension of 6.2. Normal wall thicknesses with a posterior and interventricular septal wall thickness 1.1 cm each. Normal LV systolic function. Estimated EF is 60%. 9. Aortic valve opens well. It is trileaflet. No evidence of stenosis or insufficiency. 10. Aorta appears somewhat dilated at the root with a dimension of 4.1 cm. 11. No pericardial effusion is identified. cc: MD Tanvir Castro MD Stephen W. Harbin, MD
[2018-10-07] MEDS: CELEXA PO SCH (20:31)
[2018-10-08] MEDS: ZOFRAN ODT PO PRN (00:31)
[2018-10-08] MEDS: SYNTHROID PO SCH (06:29)
[2018-10-08] MEDS: PRILOSEC PO SCH (06:29)
[2018-10-08 07:20] LABS: BASO# 0.03 X1000 (0.0-0.2); BASO% 1.4 % (0.0-0.8); EOS# 0.07 X1000 (0.0-0.7); EOS% 3.4 % (0.0-10.0); HEMATOCRIT 21.6 % (42.0-52.0); HEMOGLOBIN 7.1 g/dL (14.0-18.0); LYMPH# 0.37 X1000 (1.2-3.4); LYMPH% 17.9 % (20.5-51.1); MCH 30.5 PG (27-31); MCHC 32.9 g/dL (33-37); MCV 92.7 FL (81-99); MONO# 0.34 X1000 (0.11-0.59); MONO% 16.4 % (1.7-9.3); MPV 10.1 FL (7.4-10.4); NEUT# 1.26 X1000 (1.4-6.5); NEUT% 60.9 % (42.2-75.2); PLT 62 X1000 (130-400); RBC 2.33 XMIL (4.7-6.1); RDW 14.1 % (11.5-14.5); WBC 2.07 X1000 (4.8-10.8)
[2018-10-08 07:28] LABS: CALCIUM 7.8 mg/dL (8.8-10.2); CREATININE 1.6 mg/dL (0.7-1.2); POTASSIUM 3.7 mmol/L (3.5-5.1)
--- NOTE | 2018-10-08 09:43 | PROGRESS NOTE ---
DATE: 10/08/2018 SUBJECTIVE: Patient is stable. He is alert and oriented x3. He has no complaints. OBJECTIVE: Vitals: Afebrile, pulse 50, respirations 20, blood pressure 117/53, O2 saturation 100% on room air. CARDIOVASCULAR: Regular rhythm and rate. Occasional ectopy. Lungs: Clear. Abdomen: Very protuberant. Active bowel sounds. Extremities: 2 to 3+ lower extremity edema. Neurologic: Cranial nerves are intact. He is alert and oriented x4. Moves all extremities well. No confusion identified. LABORATORY: Ammonia 103. BMP normal, with exception of creatinine 1.6. White count 2.07, hemoglobin 7.1, platelets 62,000. ASSESSMENT: 1. Hepatic encephalopathy, improved. New onset atrial fibrillation, paroxysmal at this stage with patient unable to be placed on anticoagulants due to cirrhosis and coagulopathy associated. Heart rate is controlled. He is in sinus currently. 2. Pancytopenia related to cirrhosis. 3. Esophageal varices and portal hypertension with no active bleeding. 4. History of recent heme-positive stool; however, no signs of active bleeding. 5. Cirrhosis of the liver related to nonalcoholic steatohepatitis. I spoke with Dr. Vivas this morning regarding the patient, and he has been consulting with [facility] Transplant Team, but has not been placed on the list thus far. 6. Chronic renal insufficiency thought related to hepatorenal syndrome. 7. Hypertension. 8. Hypothyroidism. 9. B12 deficiency. 10. Chronic back pain. 11. Morbid obesity. 12. Hematuria with negative CT-RSS done yesterday. PLAN: Continue high-dose lactulose and Xifaxan. Continue Aldactone, amiloride, Lasix. He is on low-dose nadolol and Cozaar when his blood pressure allows. He remains on IV PPI. I had a long discussion with the patient regarding his code status and he desires to me made Do Not Resuscitate Level 1 and he is competent to make that decision. I will ask Dr. Horton to see the patient tomorrow due to pancytopenia, and he may require additional blood transfusion. He has had 3 units of PRBCs transfused thus far. He is stable at this time. We will ask Physical Therapy to start working with the patient in the morning to try to ambulate and improve his physical activity. cc: Artem Quiroga MD [facility]
[2018-10-08] MEDS: LASIX PO SCH (10:26)
[2018-10-08] MEDS: XIFAXAN PO SCH ×2 (10:26→20:05)
[2018-10-08] MEDS: THERA M PLUS PO SCH (10:28)
[2018-10-08] MEDS: CORGARD PO SCH (10:29)
[2018-10-08] MEDS: LACTULOSE PO SCH ×2 (10:29→20:05)
[2018-10-08] MEDS: MIDAMOR PO SCH (10:29)
[2018-10-08] MEDS: COZAAR PO SCH (10:29)
[2018-10-08 10:42] LABS: RETIC% 1.4 % (0.8-2.1); RETIC-HE 33.1 PG (28.2-36.6)
[2018-10-08 10:58] LABS: IRON SATURATION 39 %; TIBC 103 ug/dL; TOTAL IRON 40 ug/dL (53-167); UNBOUND IRON 63 ug/dL (112-346)
[2018-10-08] MEDS: CELEXA PO SCH (20:05)
[2018-10-09] MEDS: PRILOSEC PO SCH (06:43)
[2018-10-09] MEDS: SYNTHROID PO SCH (06:43)
--- NOTE | 2018-10-09 07:35 | EKG Report ---
Test Performed on : 10/07/2018 11:32:18 AM Test Reason : ectopy Blood Pressure : / mmHG Vent. Rate : 060 BPM Atrial Rate : 375 BPM P-R Int : 000 ms QRS Dur : 100 ms QT Int : 494 ms P-R-T Axes : 000 019 030 degrees QTc Int : 494 ms Atrial fibrillation. Low voltage QRS Abnormal ECG When compared with ECG of 04-OCT-2018 08:49, (Unconfirmed) Atrial fibrillation. has replaced Sinus rhythm. Nonspecific T wave abnormality now evident in Lateral leads Confirmed by Nasim SANCHEZ, Lewis ([id number]) on 10/09/2018 8:59:06 AM
[2018-10-09 08:04] LABS: BASO# 0.01 X1000 (0.0-0.2); BASO% 0.6 % (0.0-0.8); EOS# 0.05 X1000 (0.0-0.7); HEMATOCRIT 21.7 % (42.0-52.0); LYMPH# 0.31 X1000 (1.2-3.4); LYMPH% 18.5 % (20.5-51.1); MCH 30.2 PG (27-31); MCHC 32.3 g/dL (33-37); MCV 93.5 FL (81-99); MONO# 0.28 X1000 (0.11-0.59); MONO% 16.7 % (1.7-9.3); MPV 10.4 FL (7.4-10.4); NEUT# 1.03 X1000 (1.4-6.5); NEUT% 61.2 % (42.2-75.2); PLT 60 X1000 (130-400); RBC 2.32 XMIL (4.7-6.1); RDW 14.2 % (11.5-14.5); WBC 1.68 X1000 (4.8-10.8)
[2018-10-09 08:10] LABS: ALB/GLOB RATIO 0.7; CALCIUM 7.9 mg/dL (8.8-10.2); CREATININE 1.6 mg/dL (0.7-1.2); TOTAL BILIRUBIN 1.87 mg/dL (0.20-1.00); TOTAL PROTEIN 4.8 g/dL (6.3-8.3)
[2018-10-09] MEDS: CORGARD PO SCH (08:17)
[2018-10-09] MEDS: XIFAXAN PO SCH ×2 (08:17→22:00)
[2018-10-09] MEDS: LACTULOSE PO SCH ×2 (08:17→22:00)
[2018-10-09] MEDS: COZAAR PO SCH (08:17)
[2018-10-09] MEDS: LASIX PO SCH (08:17)
[2018-10-09] MEDS: THERA M PLUS PO SCH (08:17)
[2018-10-09] MEDS: MIDAMOR PO SCH (08:18)
--- NOTE | 2018-10-09 09:07 | PROGRESS NOTE ---
DATE: 10/09/2018 SUBJECTIVE: The patient states that he is not hurting anywhere. He has no complaints. He slept all right last night. OBJECTIVE: Vital Signs: Show a blood pressure of 129/49, respirations 20, pulse 56, temperature 98.1 degrees Fahrenheit, oxygen saturation is 100% on room air. Laboratory: Shows the white count is down to 1680, hemoglobin 7.0, hematocrit 21.7. Electrolytes essentially normal. Creatinine is 1.6. Calcium is a little low at 7.9. Total bilirubin is again slightly elevated at 1.87. Serum ammonium level was down to 81. HEENT: Normocephalic. EOMs intact. PERRLA. Throat clear. Lungs: Clear to auscultation and percussion without rhonchi, rales, or wheezes. Heart: Heart sounds regular but he has been in atrial fibrillation. We will have to look at telemetry to tell whether he is still in atrial fibrillation or not. At this point, his heart rate is slow. It sounds fairly regular. Abdomen: Somewhat distended with ascites but he has no abdominal pain. Neurological Examination: Intact grossly. ASSESSMENT: 1. Hepatic encephalopathy, still improving. 2. New onset atrial fibrillation. 3. Pancytopenia. 4. Cirrhosis. 5. Esophageal varices. 6. Hypertension. 7. Hypothyroidism. 8. Vitamin B12 deficiency. 9. Morbid obesity. 10. Hematuria. 11. Anemia along with his pancytopenia. PLAN: Continue his lactulose and Xifaxan. We will continue his other medications. Dr. Horton of hematology will be seeing the patient as well. cc: MD Artem Peng Jr, MD
--- NOTE | 2018-10-09 12:27 | HEMO/ONC CONSULTATION ---
DATE: 10/09/2018 CHIEF COMPLAINT: We have been consulted for management of the patient's pancytopenia. HISTORY OF PRESENT ILLNESS: Mr. Sotelo is a 62-year-old white male who presented to the emergency department on 10/04/2018 complaining of lightheadedness for a few days. The patient denied any fever, chest pain, shortness of breath. No vomiting or abdominal pain. He did have some nausea. The patient also says his legs are very weak with some swelling. While in the emergency department, the patient did have an increased ammonia level, had altered mental status and was admitted at that time for further evaluation and management. The patient is well known to our clinic where he follows up for his pancytopenia. The patient has hepatitis A liver disease, cirrhosis, splenomegaly and esophageal varices post banding. The patient's baseline white blood cell count over the last few CBCs went from 1.8 to 2.5. Hemoglobin normally ranges from 10.7 to 12, hematocrit of 31.2 to 36, platelets of 55,000 to 70,000. PAST MEDICAL HISTORY: 1. Cirrhosis of the liver with hepatic encephalopathy and esophageal varices. 2. Chronic back pain. 3. Hypothyroidism. 4. B12 deficiency. 5. Hypertension. PAST SURGICAL HISTORY: 1. L3, L4, L5 fusion. 2. Lumbar laminectomy x2. 3. Right inguinal hernia repair. 4. Umbilical hernia repair. FAMILY HISTORY: Myocardial infarction. SOCIAL HISTORY: Denies any tobacco, alcohol, or illicit drug use. ALLERGIES: No known drug allergies. HOME MEDICATIONS: 1. Midamor. 2. Celexa. 3. Lasix. 4. Lactulose. 5. Synthroid. 6. Cozaar. 7. Plus. 8. Nadolol . 9. Xifaxan. REVIEW OF SYSTEMS: Negative unless mentioned in the HPI. PHYSICAL EXAM: Vital Signs: Temperature 98.1 degrees, heart rate 53, respiratory 16, blood pressure 114/54, saturation 100% on room air. General: The patient is awake, lying in bed, no acute distress noted. The patient says he is starting to feel better. HEENT: Anicteric. Pupils PERRLA. Mucous membranes moist. Neck: Supple. Trachea midline. No JVD. Lungs: Bilateral breath sounds clear to auscultation. Cardiovascular: S1, S2. Regular rate and rhythm. Abdomen: Soft, nontender. Bowel sounds present in all 4 quadrants. Skin: Warm dry and intact and. Neurologic: Alert and oriented x3. No focal deficits noted. LABORATORY DATA: White cell count is 1.68, hemoglobin 7.2, hematocrit 21.7, platelets are 60. Potassium 4.0, BUN 19, creatinine 1.6, calcium 7.9. ASSESSMENT AND PLAN: 1. Pancytopenia: Caused by the patient splenomegaly, cirrhosis of the liver. At this time, just continue to monitor. Transfuse for any clinical signs of bleeding. 2. Hepatic encephalopathy: This is slowly improving. Continue recommendations per primary team and Gastroenterology. 3. Atrial fibrillation. Continue recommendations per primary medical team. 4. Cirrhosis: Continue recommendations per Gastroenterology and primary medical team. 5. Hypertension: Aware. 6. Hypothyroidism: Aware. Dictated by KEVIN Soriano for Johnny Horton MD Patient seen and examined. As above. Pancytopenia due to splenomegaly and cirrhosis and hypersplenism. Transfuse as needed. Johnny Horton M.D. cc: MD Artem Mcdonald MD [facility]
--- NOTE | 2018-10-09 16:54 | GASTROENTEROLOGY PROGRESS NOTE ---
DATE: 10/09/2018 SUBJECTIVE: The patient is sitting on the side of the bed. He is in no acute distress. He is awake and alert and oriented to person and place. Dr. Bonilla also saw the patient at the time of evaluation. The patient had been seen by Cardiology over the weekend. Echocardiogram was done. We had tried a paracentesis last week but there was not enough fluid for collection. The patient states he is feeling better. OBJECTIVE: Vital Signs: Temperature 97.7 degrees, pulse 52, respirations 24, blood pressure 117/44. General: The patient is awake, alert, no acute distress Respiratory: Lungs sound essentially clear. Abdomen: Soft. Otherwise obese. Abdominal swelling seems to have improved. Extremities: He continues to have lower extremity edema that has improved some since hospitalization. The patient is tolerating his diet. LABORATORY DATA: Hematology: WBC 1.68, hemoglobin 7.0, hematocrit 21.7, MCV 93.5, platelets 60,000. Chemistry: Sodium 137, potassium 4.0, chloride 111, CO2 21, BUN 19, creatinine 1.6,glucose 98, iron 42, TIBC 103, % saturation 39, ferritin 118, total bilirubin 1.87, AST 28, ALT 14, alkaline phosphatase 110, ammonia 81. ASSESSMENT AND PLAN: 1. Cirrhosis of the liver. 2. Hepatic encephalopathy, improved. 3. Pancytopenic, followed by Oncology. 4. New onset atrial fibrillation. The patient has been seen by Cardiology. He has had an echocardiogram. PLAN: Continue current medications. Continue his medications for cirrhosis including lactulose, Xifaxan and diuretics. I recommend 2 g sodium diet. The patient has been seen by Dr. Santo at [facility] in the past and at that time was not a candidate for liver transplant. Dr. Bonilla recommends contacting Dr. Santo for a sooner followup appointment due to his recent hospitalization. As far as Gastroenterology is concerned, he can be discharged when able to follow with Dr. Santo when able. Recommend the patient follow back in our office, to call and make an appointment. Further plans to be made as needed. The patient was also seen by Dr. Bonilla. Dictated by KEVIN Saenz for Prosper Bonilla MD cc: KEVIN Watson MD Stephen W. Harbin, MD MTDD
[2018-10-09] MEDS: CELEXA PO SCH (22:00)
[2018-10-10] MEDS: PRILOSEC PO SCH (06:33)
[2018-10-10] MEDS: SYNTHROID PO SCH (06:33)
[2018-10-10] MEDS: LACTULOSE PO SCH ×2 (08:04→21:29)
[2018-10-10] MEDS: MIDAMOR PO SCH (08:04)
[2018-10-10] MEDS: CORGARD PO SCH (08:04)
[2018-10-10] MEDS: LASIX PO SCH (08:05)
[2018-10-10] MEDS: XIFAXAN PO SCH ×2 (08:05→21:29)
[2018-10-10] MEDS: THERA M PLUS PO SCH (08:05)
[2018-10-10] MEDS: COZAAR PO SCH (08:05)
--- NOTE | 2018-10-10 09:01 | PROGRESS NOTE ---
DATE: 10/10/2018 CHIEF COMPLAINT/SUBJECTIVE: He has not felt well since about 3 o'clock this morning. He has had a little bit of upset stomach, a little bit of a headache, but nothing very severe he says. OBJECTIVE: Vital Signs: Blood pressure is 109/37, respirations 18, pulse 56, temperature 98.4 degrees Fahrenheit. HEENT: Normocephalic. EOMs intact. PERRLA. Throat clear. Lungs: Sound clear to auscultation and percussion without rhonchi, rales, or wheezes. Heart: Sounds fairly regular with a soft 1/6 systolic murmur over the mitral area. Echocardiogram did show some dilatation of the chambers, especially the ventricle, the left ventricle, though the wall thickness was normal and EF was 60. He had been in atrial fibrillation, just sounds very regular at this time. Abdomen: Soft, with ascites. Not much tenderness on palpation. Neurological: Intact grossly. The patient's encephalopathy seems to be improving. LABORATORY DATA: White count is down to 1680, hemoglobin 7; this was yesterday. I see no new labs today. We will make sure we have some. ASSESSMENT: 1. Hepatic encephalopathy, with improvement. 2. New onset atrial fibrillation. 3. Pancytopenia. 4. Cirrhosis. 5. Esophageal varices. 6. Hypertension. 7. Hypothyroidism. 8. Vitamin B12 deficiency. 9. Morbid obesity. 10. Hematuria. 11. Anemia. PLAN: Continue support. Cardiology is still doing a workup. Hematology is involved, and of course gastroenterology is still seeing him as well. cc: MD Artem Peng Jr, MD
--- NOTE | 2018-10-10 09:48 | HEMO/ONC PROGRESS NOTE ---
DATE: 10/10/2018 SUBJECTIVE: Patient denies any complaints. The patient says he has no pain at this time. OBJECTIVE: Vital Signs: Temperature 98.4 degrees, heart rate 56, respiratory rate 18, blood pressure 109/87, saturating 100% on room air. General: Patient is awake, lying in bed, no acute distress noted. HEENT: Anicteric. Mucus membranes appear to be moist. Cardiovascular: S1, S2. Regular rate and rhythm. Chest: Bilateral breath sounds clear to auscultation. Abdomen: Soft, nontender. Bowel sounds present all 4 quadrants. Neurologic: Alert, orient x3. No focal deficits noted. LABORATORY DATA: White count is 1.6, hemoglobin 7, hematocrit 21.7, platelets are 60,000. These are all labs from yesterday. ASSESSMENT AND PLAN: 1. Pancytopenia: This is all caused by splenomegaly and cirrhosis of the liver. Continue to monitor. Transfuse if needed. 2. Hepatic encephalopathy: Continue recommendations per Primary Medical Team and Gastroenterology. 3. Atrial fibrillation. Continue recommendations per primary medical team. Dictated by KEVIN Soriano for Johnny Horton MD Patient seen and examined. As above. 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 Continue support with transfusion as needed. No need for white cell growth factor support. Johnny Horton M.D. cc: Artem Quiroga MD [facility]
[2018-10-10 09:51] LABS: ALB/GLOB RATIO 0.7; ALBUMIN 2.2 g/dL (3.5-5.0); CALCIUM 8.1 mg/dL (8.8-10.2); CREATININE 1.7 mg/dL (0.7-1.2); POTASSIUM 3.7 mmol/L (3.5-5.1); TOTAL BILIRUBIN 2.02 mg/dL (0.20-1.00); TOTAL PROTEIN 5.4 g/dL (6.3-8.3)
--- NOTE | 2018-10-10 13:43 | GASTROENTEROLOGY PROGRESS NOTE ---
DATE: 10/10/2018 SUBJECTIVE: Patient is lying in bed resting in no acute distress. He denies any significant complaints except for maybe a small headache. OBJECTIVE: Vital Signs: Temperature 98.2 degrees, pulse 53, respirations 22, blood pressure 100/63. General: Patient is awake, alert, no acute distress. LABORATORY: Hematology. WBC 1.68, hemoglobin 7.0, hematocrit 21.7, MCV 93.5. Chemistry. Sodium 136, potassium 3.7, chloride 109, CO2 24, BUN 18, creatinine 1.7, glucose 108. ASSESSMENT AND PLAN: 1. Cirrhosis of the liver. 2. Hepatic encephalopathy has improved. 3. Pancytopenia. Oncology is following. 4. New onset atrial fibrillation. Patient has been seen by Cardiology. They are also seeing him for possibility of heart failure related to his anasarca. 5. Continue current medications. Recommend patient call [facility] and make a sooner followup with Dr. Santo. Recommend he follow up with us as an outpatient. Will continue to follow during his hospital course and further plans will be made as needed. I have discussed this case with Dr. Bonilla. Dictated by KEVIN Saenz for Prosper Bonilla MD cc: KEVIN Watson MD Stephen W. Harbin, MD
[2018-10-10] MEDS: CELEXA PO SCH (21:29)
[2018-10-11] MEDS: PRILOSEC PO SCH (06:09)
[2018-10-11] MEDS: SYNTHROID PO SCH (06:09)
[2018-10-11 07:55] LABS: WBC 1.64 X1000 (4.8-10.8)
[2018-10-11 07:56] LABS: BASO# 0.01 X1000 (0.0-0.2); BASO% 0.6 % (0.0-0.8); EOS# 0.05 X1000 (0.0-0.7); HEMATOCRIT 20.5 % (42.0-52.0); HEMOGLOBIN 6.7 g/dL (14.0-18.0); LYMPH# 0.34 X1000 (1.2-3.4); LYMPH% 20.7 % (20.5-51.1); MCH 30.9 PG (27-31); MCHC 32.7 g/dL (33-37); MCV 94.5 FL (81-99); MONO# 0.25 X1000 (0.11-0.59); MONO% 15.2 % (1.7-9.3); MPV 10.4 FL (7.4-10.4); NEUT# 0.99 X1000 (1.4-6.5); NEUT% 60.5 % (42.2-75.2); PLT 52 X1000 (130-400); RBC 2.17 XMIL (4.7-6.1); RDW 14.3 % (11.5-14.5)
--- NOTE | 2018-10-11 09:01 | PROGRESS NOTE ---
DATE: 10/11/2018 SUBJECTIVE: Patient is stable. Blood counts are down today. OBJECTIVE: Afebrile, pulse 55, respirations 19, blood pressure 108/57, O2 saturation on room air is 100%. CV: Regular rate and rhythm. Lungs: Clear. Abdomen: Very protuberant. Active bowel sounds. Extremities: There is 1 to 2+ lower extremity edema, nonpitting. Neurologic: Nonfocal. Alert and oriented x3. White count 1.64, hemoglobin 6.7, platelets 52,000. Calcium 8.1, potassium 3.7, sodium 136, creatinine 1.7, blood sugar 108. Total bilirubin 2.02, AST 32, ALT 17, alkaline phosphatase 119, total protein 5.4, albumin 2.2. ASSESSMENT: 1. Hepatic encephalopathy, stabilized. 2. 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 3. Cirrhosis of the liver. 4. Esophageal varices and portal hypertension. 5. Paroxysmal atrial fibrillation. 6. Nonalcoholic steatohepatitis. 7. Chronic renal insufficiency. 8. Hypertension. 9. Hypothyroidism. 10. B12 deficiency. 11. Chronic back pain. 12. Morbid obesity. PLAN: As his hemoglobin has dipped to 6.7, I am going to transfuse him 2 units of PRBCs slowly today, increase his activities some with physical therapy, as has already been ordered, and will get him up in a chair twice a day. Continue his high dose lactulose and Xifaxan. Continue supportive measures. He remains on nadolol, Cozaar, and an IV PPI. Do Not Resuscitate level 1. cc: Artem Quiroga MD
[2018-10-11] MEDS: THERA M PLUS PO SCH (09:25)
[2018-10-11] MEDS: CORGARD PO SCH (09:26)
[2018-10-11] MEDS: COZAAR PO SCH (09:26)
[2018-10-11] MEDS: XIFAXAN PO SCH ×2 (09:26→22:18)
[2018-10-11] MEDS: MIDAMOR PO SCH (09:26)
[2018-10-11] MEDS: LACTULOSE PO SCH ×2 (09:27→22:18)
[2018-10-11] MEDS: LASIX PO SCH (09:28)
[2018-10-11] MEDS ORDERED: NS 500 ML ONE ×2 (11:17→16:16)
--- NOTE | 2018-10-11 15:58 | GASTROENTEROLOGY PROGRESS NOTE ---
DATE: 10/11/2018 SUBJECTIVE: Patient was resting in no acute distress. His hemoglobin and hematocrit dropped some today. He is receiving 2 units of packed red blood cells. Patient denies any visible blood in the stool or black stools. Documented intake and output report shows soft brown stool. OBJECTIVE: Vital Signs: Temperature 97.9 degrees, pulse 55, respirations 19, blood pressure 112/41. General: Patient is awake and alert. Abdomen: Obese. Paracentesis was attempted, but not enough fluid for collection. Patient has also been seen by Cardiology. LABORATORY: Hematology: WBC 1.64, hemoglobin 6.7, hematocrit 20.5, MCV 94.5, platelets 52,000. Chemistry: Sodium 136, potassium 3.7, chloride 109, CO2 of 24, BUN 18, creatinine 1.7, glucose 108, calcium 8.1. ASSESSMENT AND PLAN: 1. Hepatic encephalopathy has improved. 2. Cirrhosis of the liver. Continue current medications. 3. Pancytopenia. 4. Anemia. Patient to receive packed red blood cell transfusion today. We will continue to follow hemoglobin and hematocrit and transfuse further packed red blood cells as needed. Continue current medications, lactulose and Xifaxan. Continue PPI and nadolol. Further plans will be made according to his progress. I have discussed this case with Dr. Bonilla. Dictated by KEVIN Saenz for Prosper Bonilla MD cc: KEVIN Watson MD Stephen W. Harbin, MD
[2018-10-11] MEDS: CELEXA PO SCH (22:18)
[2018-10-12] MEDS: SYNTHROID PO SCH (06:38)
[2018-10-12] MEDS: PRILOSEC PO SCH (06:38)
[2018-10-12 07:49] LABS: BASO# 0.01 X1000 (0.0-0.2); BASO% 0.3 % (0.0-0.8); EOS# 0.04 X1000 (0.0-0.7); HEMATOCRIT 27.1 % (42.0-52.0); HEMOGLOBIN 8.9 g/dL (14.0-18.0); LYMPH# 0.34 X1000 (1.2-3.4); LYMPH% 8.5 % (20.5-51.1); MCH 30.6 PG (27-31); MCHC 32.8 g/dL (33-37); MCV 93.1 FL (81-99); MONO# 0.28 X1000 (0.11-0.59); MPV 10.4 FL (7.4-10.4); NEUT# 3.32 X1000 (1.4-6.5); NEUT% 83.2 % (42.2-75.2); PLT 63 X1000 (130-400); RBC 2.91 XMIL (4.7-6.1); RDW 14.8 % (11.5-14.5); WBC 3.99 X1000 (4.8-10.8)
[2018-10-12] MEDS: LASIX PO SCH (08:47)
[2018-10-12] MEDS: LACTULOSE PO SCH ×2 (08:47→22:16)
[2018-10-12] MEDS: THERA M PLUS PO SCH (08:50)
[2018-10-12] MEDS: CORGARD PO SCH (08:50)
[2018-10-12] MEDS: XIFAXAN PO SCH ×2 (08:50→22:15)
[2018-10-12] MEDS: MIDAMOR PO SCH (08:50)
[2018-10-12] MEDS: COZAAR PO SCH (08:51)
[2018-10-12] MEDS: ZOFRAN ODT PO PRN (15:36)
--- NOTE | 2018-10-12 18:54 | PROGRESS NOTE ---
DATE: 10/12/2018 SUBJECTIVE: The patient says he is doing fairly well. He has no specific complaints. He did have some nausea during the night last night, fairly significantly. OBJECTIVE: Vital Signs: Afebrile, pulse 61, respirations 22, blood pressure 113/42, O2 saturation on room air 98-100%. Cardiovascular: Regular rate and rhythm. Lungs: Clear. Abdomen: Very protuberant. No point tenderness. Extremities: Trace lower extremity edema overall improved. Neurologic: Cranial nerves are intact. He moves all extremities well. Alert and oriented x3 with no signs of encephalopathy and no asterixis. LABS: White count 3.99, up from 1.64 yesterday, hemoglobin 8.9, platelets 63. This is status post 2 units PRBCs transfused yesterday. Sodium 136. ASSESSMENT: 1. Hepatic encephalopathy, improved. 2. Pancytopenia, secondary to hypersplenism related to cirrhosis. 3. Cirrhosis of the liver. 4. Nonalcoholic steatohepatitis (FLORES). 5. Esophageal varices and portal hypertension. 6. Paroxysmal atrial fibrillation. 7. Chronic renal insufficiency. 8. Hypertension. 9. Hypothyroidism. 10. B12 deficiency. 11. Chronic back pain. 12. Morbid obesity. PLAN: Continue to transfuse when required. We will repeat labs tomorrow to include CBC and BMP. Continue Xifaxan and lactulose b.i.d. on both those medications. Continue low-dose nadolol and Cozaar. Continue his home Synthroid. He is on Lasix and amiloride and will continue those. He also remains on Celexa. Monitor his labs and if he is stabilized, will possibly be able to discharge home in 1 to 2 days. We will ask physical therapy to see the patient and work on ambulation and advised him to sit up in a chair twice a day. Will try to get him a recliner in his room. cc: Artem Quiroga MD
--- NOTE | 2018-10-12 20:01 | GASTROENTEROLOGY PROGRESS NOTE ---
DATE: 10/12/2018 SUBJECTIVE: The patient was seen in the morning. He was resting comfortably. He denied any new complaints. He was alert and oriented, responded to questions normally. He tells me that he had a good night sleep. OBJECTIVE: Vital signs: Temperature was 98.5 degrees, pulse was 60 per minute, breathing 18, blood pressure 148/55. He did not have any asterixis. Abdomen was distended but soft. Bowel sounds are audible. LABORATORY DATA: Labs were reviewed, which showed WBC had gone up to 3.99, hemoglobin is up to 8.9, hematocrit 27.1, MCV 93.1. IMPRESSION: 1. Hepatic encephalopathy, appears to have resolved. Precipitating factor most likely anemia and/or diarrhea. 2. Cirrhosis with portal hypertension. His model for endstage liver disease (MELD) score was around 20. He is currently on diuretics. I would continue the same. He will be followed up by Dr. Santo at [facility] for evaluation for possible liver transplant. In the meantime, continue current treatment. Continue 2 g daily sodium diet. Continue lactulose and Xifaxan for prophylaxis of hepatic encephalopathy. cc: MD Artem Vargas MD
[2018-10-12] MEDS: CELEXA PO SCH (22:16)
[2018-10-13] MEDS: SYNTHROID PO SCH (06:20)
[2018-10-13] MEDS: PRILOSEC PO SCH (06:20)
[2018-10-13 07:30] LABS: BASO# 0.01 X1000 (0.0-0.2); BASO% 0.4 % (0.0-0.8); EOS# 0.06 X1000 (0.0-0.7); EOS% 2.2 % (0.0-10.0); HEMATOCRIT 23.1 % (42.0-52.0); HEMOGLOBIN 7.5 g/dL (14.0-18.0); LYMPH# 0.47 X1000 (1.2-3.4); LYMPH% 17.3 % (20.5-51.1); MCH 30.6 PG (27-31); MCHC 32.5 g/dL (33-37); MCV 94.3 FL (81-99); MONO# 0.35 X1000 (0.11-0.59); MONO% 12.9 % (1.7-9.3); MPV 10.3 FL (7.4-10.4); NEUT# 1.82 X1000 (1.4-6.5); NEUT% 67.2 % (42.2-75.2); PLT 46 X1000 (130-400); RBC 2.45 XMIL (4.7-6.1); RDW 14.7 % (11.5-14.5); WBC 2.71 X1000 (4.8-10.8)
[2018-10-13 07:40] LABS: CALCIUM 7.7 mg/dL (8.8-10.2); POTASSIUM 4.4 mmol/L (3.5-5.1)
[2018-10-13] MEDS: LASIX PO SCH (08:55)
[2018-10-13] MEDS: LACTULOSE PO SCH ×2 (08:56→21:56)
[2018-10-13] MEDS: MIDAMOR PO SCH (08:56)
[2018-10-13] MEDS: XIFAXAN PO SCH ×2 (08:56→21:55)
[2018-10-13] MEDS: THERA M PLUS PO SCH (08:56)
[2018-10-13] MEDS: COZAAR PO SCH (08:56)
[2018-10-13] MEDS: CORGARD PO SCH (09:03)
[2018-10-13 12:35] LABS: ALB/GLOB RATIO 0.5; ALBUMIN 1.6 g/dL (3.5-5.0); DIRECT BILIRUBIN 0.6 mg/dL (0.00-0.20); TOTAL BILIRUBIN 2.73 mg/dL (0.20-1.00); TOTAL PROTEIN 4.6 g/dL (6.3-8.3)
--- NOTE | 2018-10-13 13:52 | GASTROENTEROLOGY PROGRESS NOTE ---
DATE: 10/13/2018 This is KEVIN Saenz dictating for Prosper Bonilla MD. SUBJECTIVE: The patient is sitting up on the side of the bed in no acute distress. He denies any visible blood in the stool or black stools. His hemoglobin has dropped today. He did receive packed red blood cells on 10/11/2018, 2 units. Hemoglobin and hematocrit today is 7.5 and 23.1. OBJECTIVE: Vital Signs: Temperature 98 degrees, pulse 60, respirations 18, blood pressure 98/42. General: The patient is awake, alert, no acute distress. LABORATORY DATA: Hematology: WBC 2.71, hemoglobin 7.5, hematocrit 23.1, MCV 94.3, platelets 46,000. Chemistry: Sodium 133, potassium 4.4, chloride 109, CO2 is 21, BUN 26, creatinine 2.0. ASSESSMENT AND PLAN: 1. Hepatic encephalopathy, improved. 2. Cirrhosis of the liver. 3. Pancytopenia. 4. History of esophageal varices and portal hypertension. 5. Anemia. We will check for hemolytic anemia, laboratory work for haptoglobin and lactic dehydrogenase. Repeat hepatic function panel. 6. Continue current medications. Continue Xifaxan and lactulose. The patient has reported some diarrhea, he can adjust the dosage of lactulose to have a goal of 2-3 bowel movements daily. Continue nadolol. We will continue to follow. Recommend he follow up with us as an outpatient and Dr. Bonilla had recommended he contact Dr. Santo for a sooner follow up, since he has now been hospitalized. I have discussed this case with Dr. Bonilla. Further plans will be made as needed. Dictated by KEVIN Saenz for Prosper Bonilla MD cc: KEVIN Watson MD Stephen W. Harbin, MD MTDD
[2018-10-13] MEDS ORDERED: ULTRAM PO PRN (17:42)
--- NOTE | 2018-10-13 18:04 | PROGRESS NOTE ---
DATE: 10/13/2018 SUBJECTIVE: Patient is overall stable. He did ambulate some and he had some dizziness. Does have a walker at home. He has been living with his daughter but she is in and out quite a lot and he plans on going home with his son. OBJECTIVE: Vital Signs: Afebrile, pulse 51, respirations 18, blood pressure 101/53, O2 saturation 100% on room air. CV: RRR. Lungs: Clear. Abdomen: Very protuberant, soft. Active bowel sounds. Extremities: There is warmth and redness at the left antecubital forearm distal biceps area from an infiltrated IV this morning. Neuro: Cranial nerves are intact, 2+ lower extremity edema. LABS: Today per gastroenterology show total bilirubin 2.7, direct bilirubin 0.6, AST 25, ALT 13, alkaline phosphatase 97, albumin 1.6. Sodium 133, potassium 4.4, chloride 109, CO2 21, BUN 26, creatinine 2.0. White count 2.7, hemoglobin 7.5, platelets 46,000. ASSESSMENT: 1. Hepatic encephalopathy remains stable without difficulty currently. 2. Pancytopenia secondary to hypersplenism and cirrhosis with hemoglobin drifting down this morning again to 7.5 after transfusion of 2 units packed red blood cells 2 days ago . 3. Cirrhosis of liver. 4. Nonalcoholic steatohepatitis. 5. Esophageal varices and portal hypertension. 6. Paroxysmal atrial fibrillation. 7. Chronic renal insufficiency. 8. Hypertension. 9. Hypothyroidism. 10. B12 deficiency. 11. Chronic back pain. 12. Morbid obesity. 13. Superficial thrombophlebitis left arm after intravenous infiltration PLAN: I am going to recheck his labs in the morning to include CBC and BMP. He might need another transfusion. Talked with son. He is going to stay with his son when he goes home. May discharge him tomorrow and follow him up outpatient give him transfusions outpatient as required. I spoke with Dr. Hall and he is in agreement with the plan. Continue Xifaxan and lactulose b.i.d. Continue his low-dose nadolol and Cozaar. He is on diuretics in the form of Lasix and amiloride and will continue those. Continue Celexa. Physical therapy will be helping in hospital regarding strengthening exercises and ambulation and arrange for home health care and home PT. Start warm compresses to the left forearm t.i.d. Reassess in the morning. cc: Artem Quiroga MD
[2018-10-13] MEDS: CELEXA PO SCH (21:55)
[2018-10-14] MEDS: SYNTHROID PO SCH (06:17)
[2018-10-14] MEDS: PRILOSEC PO SCH (06:17)
[2018-10-14 07:18] VITALS: BP 107/60
[2018-10-14 08:10] LABS: HEMATOCRIT 23.8 % (42.0-52.0); MCH 31.1 PG (27-31); MCHC 33.6 g/dL (33-37); MCV 92.6 FL (81-99); MPV 10.6 FL (7.4-10.4); RBC 2.57 XMIL (4.7-6.1); RDW 14.3 % (11.5-14.5); WBC 2.52 X1000 (4.8-10.8)
[2018-10-14 08:27] LABS: CALCIUM 7.8 mg/dL (8.8-10.2); CREATININE 1.9 mg/dL (0.7-1.2)
[2018-10-14] MEDS: LACTULOSE PO SCH (10:01)
[2018-10-14] MEDS: CORGARD PO SCH (10:01)
[2018-10-14] MEDS: MIDAMOR PO SCH (10:01)
[2018-10-14] MEDS: THERA M PLUS PO SCH (10:01)
[2018-10-14] MEDS: LASIX PO SCH (10:01)
[2018-10-14] MEDS: COZAAR PO SCH (10:02)
[2018-10-14] MEDS: XIFAXAN PO SCH (10:02)
--- NOTE | 2018-10-14 11:45 | PROGRESS NOTE ---
DATE: 10/14/2018 SUBJECTIVE: Patient doing well. No complaints. OBJECTIVE: Afebrile. Vital signs stable.CV: RRR without murmur. Lungs: Clear. Abdomen: Very protuberant, soft, nontender, and nondistended. Extremities: 1+ lower extremity edema, nonpitting. Neurologic: Nonfocal. Alert and orient x3. No asterixis. LABORATORY: Lab data today shows sodium 132, potassium 4.0, chloride 108, CO2 18, BUN 28, creatinine 1.9, and calcium 7.8. White count 2.5, hemoglobin 8.0, and platelets 55,000. ASSESSMENT: 1. Hepatic encephalopathy, resolved. 2. Pancytopenia secondary to hypersplenism related to his cirrhosis, stable. 3. Cirrhosis of the liver secondary to FLORES. 4. Esophageal varices and portal hypertension, stable. 5. Paroxysmal atrial fibrillation, unable to take anticoagulation due to pancytopenia and esophageal varices. 6. Chronic renal insufficiency. 7. Hypertension. 8. Hypothyroidism. 9. B12 deficiency. 10. Chronic back pain. 11. Morbid obesity. 12. Superficial thrombophlebitis left forearm. PLAN: Continue warm compresses outpatient to his left forearm t.i.d. He will follow up in 2 days in my office with repeat CBC and BMP then. Continue lactulose 30 mL b.i.d. and Xifaxan 550 mg b.i.d. Add ferrous sulfate b.i.d. to his multivitamin daily. Continue Celexa with low-dose nadolol and Cozaar. Continue diuretics in the form of amiloride and Lasix. Home health care and home PT being arranged. He is going home to live with his son for a few days. He is going to call his job checker at [facility] regarding the need for transplant, and they are waiting awaiting his decision on that. cc: Artem Quiroga MD
--- NOTE | 2018-11-19 22:01 | DISCHARGE SUMMARY ---
ADMISSION DATE: 10/05/2018 DISCHARGE DATE: 10/14/2018 DIAGNOSES: 1. Hepatic encephalopathy, resolved. 2. 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 3. 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 4. Esophageal varices and portal hypertension stable. 5. Paroxysmal atrial fibrillation, unable to take anticoagulation due to pancytopenia and esophageal varices. 6. Chronic renal insufficiency. 7. Hypertension. 8. Hypothyroidism. 9. B12 deficiency. 10. Chronic back pain. 11. Morbid obesity. 12. Superficial thrombophlebitis left arm. PROCEDURES: 1. Chest x-ray done on admission negative exam. 2. CT head done without contrast on admission showed no evidence of acute intracranial disease. 3. Ultrasound lower abdomen reveals no fluid collection large enough to drain/no paracentesis performed due to no major ascites. 4. Echocardiogram done 10/06 revealing EF of 60%, possible dilated right atrium, mild TR, dilated right ventricle with normal RV systolic function, RV systolic pressure 48, mild pulmonic insufficiency, moderate left atrial enlargement, trace MR, dilated left ventricle, end-diastolic dimension of 6.2, aorta mildly dilated with root of 4.1 cm. No pericardial effusion. 5. CT abdomen and pelvis without contrast done 10/07/2018 revealing anasarca, ascites and left pleural effusion. Negative for renal stone disease. CONSULTANTS: 1. Dr. Bonilla, gastroenterology. 2. Dr. Altman, cardiology. 3. Dr. Horton, hematology/oncology. REASON FOR ADMISSION HOSPITAL COURSE: The patient is a 63-year-old white male who suffers chronically from cirrhosis of the liver associated with FLORES. He also had bad hypersplenism which caused him to have a bad pancytopenia. The patient came in with findings of confusion and CT head and chest x-ray were unremarkable. Patient was maintained on telemetry and was given [*] and continued on Aldactone, amiloride, Lasix, continued on high dose lactulose and Xifaxan as he had been on in the past. Ammonia level was 53 on that day and was 91 on admission. The patient was seen by Dr. Bonilla and potential for paracentesis was considered but ultrasound of the lower abdomen revealed no major ascitic fluid areas. The patient has been followed by Dr. Santo at [facility] but he has not been on the liver transplant list at this point but his MELD score has gone up to 20 the time of this admission. Echocardiogram was done with findings as above. CT abdomen and pelvis was done. Cardiology was consulted to rule out a portion of his symptoms being right heart failure but that was not thought to be the case. By 10/08 the patient remained stable. He was alert oriented x3. He had some hematuria and CT RSS failed to show any kidney stones. He was continued on the diuretics of Aldactone, amiloride, Lasix and high dose lactulose and Xifaxan and low-dose nadolol and Cozaar were used for his blood pressure. He was made DNR level 1 at his request after we discussed code status. Dr. Horton was consulted due to the pancytopenia and we transfused him 3 units of PRBCs due to pronounced low hemoglobin at 7.1. Dr. Horton felt like his symptoms were related to hypersplenism and he recommended continued supportive transfusions as required. No need for white cell growth factor. The patient by 10/13 was eating and walking with a walker and plans were made for him to be discharged and he is going to live with his son for a few days until he could do better to get up on his feet and about. Creatinine was 2, potassium 4.4, white count 2.7, hemoglobin 7.5, platelets 46,000. He was maintained on his Celexa. Physical therapy was working with the patient vigorously. By 10/14 arrangements were made for him to be discharged home. He had developed some mild soreness at his left forearm from the IV site and hot compresses were applied. We added ferrous sulfate b.i.d., he was to call liver specialist at [facility] to talk to him about getting on a transplant list JULIANNA and try to move up his appointment from December to earlier visit. DISCHARGE MEDICATIONS: Will be omeprazole 20 mg p.o. daily, ferrous sulfate 325 mg p.o. b.i.d., amiloride 5 mg p.o. q.a.m., Synthroid 112 mcg p.o. daily, Cozaar 25 mg p.o. daily, nadolol 10 mg p.o. daily, Lasix 100 mg p.o. daily, Celexa 20 mg p.o. daily, lactulose 30 mL p.o. b.i.d., Xifaxan 550 mg p.o. b.i.d., multivitamin 1 p.o. daily. Notably discharge lab showed sodium 132, potassium 4.0, CO2 18, BUN 28, creatinine 1.9, calcium 7.8. White count 2.5, hemoglobin 8, platelets 55,000, haptoglobin was 12, LDH of 185. cc: Artem Quiroga MD
== END 2018-10-14 13:39 | disposition home health service (06) | DRG 441 ==
LOC: ED 08:34 → 3N 08:34
PROVIDERS: ADMIT Family Medicine; ATTEND Family Medicine
CPT/HCPCS: 36430; 70450; 71010; 71045; 74176; 76857; 80048; 80053; 80076; 80101; 80196; 80301; 80307; 80320; 80324; 80329; 80345; 80346; 80353; 80358; 80361; 80365; 81001; 82003; 82055; 82140; 82270; 82728; 82948; 83010; 83540; 83550; 83615; 83735; 83992; 84100; 84439; 84443; 85025; 85027; 85045; 85610; 85730; 86850; 86900; 86901; 86920; 93005; 93010; 93306; 96361; 96374; 97116; 97162; 97530; 99285; A9270; C8929; C9113; G0431; G0434; G0479; G0480; G6038; G6039; G6040; J7030; J7040; P9016; P9047; Q9957; S0164; XXXXX

== ENCOUNTER 2018-11-07 10:58 | Inpatient (IN) ==
--- NOTE | 2018-11-07 12:15 | Diag Imaging Result Doc PS360 ---
CHEST-2 VIEWS - 11/07/2018 INDICATION: short of breath COMPARISON: 10/04/2018 FINDINGS: Heart size is borderline enlarged. Pulmonary vascularity is normal. No infiltrates or edema. No pneumothorax or pleural effusion. IMPRESSION: Borderline cardiomegaly. Electronically signed by Kevin Mojica 11/07/2018 12:13 PM
[2018-11-07 12:55] LABS: BASO# 0.02 X1000 (0.0-0.2); BASO% 1.2 % (0.0-0.8); EOS# 0.08 X1000 (0.0-0.7); EOS% 4.9 % (0.0-10.0); HEMATOCRIT 20.5 % (42.0-52.0); HEMOGLOBIN 6.7 g/dL (14.0-18.0); LYMPH# 0.44 X1000 (1.2-3.4); LYMPH% 26.8 % (20.5-51.1); MCH 30.2 PG (27-31); MCHC 32.7 g/dL (33-37); MCV 92.3 FL (81-99); MONO# 0.22 X1000 (0.11-0.59); MONO% 13.4 % (1.7-9.3); MPV 10.7 FL (7.4-10.4); NEUT# 0.88 X1000 (1.4-6.5); NEUT% 53.7 % (42.2-75.2); PLT 55 X1000 (130-400); RBC 2.22 XMIL (4.7-6.1); RDW 14.6 % (11.5-14.5); WBC 1.64 X1000 (4.8-10.8)
[2018-11-07 12:56] LABS: INR 1.93; PROTIME 23.5 Seconds (11.0-16.0)
[2018-11-07 12:57] LABS: PTT 46.8 Seconds (22.3-41.8)
[2018-11-07 13:04] LABS: ALB/GLOB RATIO 0.5; ALBUMIN 1.9 g/dL (3.5-5.0); CALCIUM 7.9 mg/dL (8.8-10.2); CREATININE 2.1 mg/dL (0.7-1.2); POTASSIUM 5.7 mmol/L (3.5-5.1); TOTAL BILIRUBIN 2.4 mg/dL (0.20-1.00); TOTAL PROTEIN 5.5 g/dL (6.3-8.3)
[2018-11-07 13:09] LABS: URINE SOURCE CLEAN CATCH
[2018-11-07 13:15] LABS: BILIRUBIN URINE NEGATIVE (NEGATIVE); BLOOD URINE LARGE (NEGATIVE); COLOR YELLOW; GLUCOSE URINE NEGATIVE (NEGATIVE); KETONE URINE NEGATIVE (NEGATIVE); LEUKOCYTES URINE NEGATIVE (NEGATIVE); NITRITE URINE NEGATIVE (NEGATIVE); PH URINE 5.5; PROTEIN URINE TRACE mg/dL (NEGATIVE); SP GRAVITY URINE 1.005; TURBIDITY URINE HAZY (CLEAR); UROBILINOGEN URINE NORMAL (NORMAL)
[2018-11-07 13:17] LABS: UR EPITHELIAL CELLS <10 /HPF (<10); URINE BACTERIA NEGATIVE /HPF; URINE RBC TNTC /HPF (<10); URINE WBC <10 /HPF (<10)
[2018-11-07] MEDS ORDERED: LASIX IV SCH ×2 (15:37→17:43)
[2018-11-07] MEDS ORDERED: BENADRYL PO ONE (15:37)
[2018-11-07] MEDS ORDERED: TYLENOL PO ONE (15:37)
[2018-11-07] MEDS: NS 500 ML IV SCH (18:01)
[2018-11-07] MEDS: ALBUTEROL NEB INH SCH ×2 (19:14→23:55)
--- NOTE | 2018-11-07 20:28 | HISTORY AND PHYSICAL ---
CHIEF COMPLAINT: Swelling and shortness of breath. HISTORY OF PRESENT ILLNESS: The patient is a 63-year-old white male followed in my medical practice. He is also followed by Dr. 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 He is also followed at [facility] and trying to get on the liver transplant team as he suffers from cirrhosis of the liver related to FLORES and has complications related to that. He has had weeping of clear fluid from his legs, increasing abdominal girth, some mild shortness of breath. Comes in for evaluation and is found to have hemoglobin of 6.7, potassium of 5.7. MEDICATIONS: Prior to admission are amiloride 5 mg p.o. q.a.m.; Synthroid 112 mcg p.o. daily; Cozaar 25 mg p.o. daily; nadolol 10 mg p.o. daily; Lasix 80 mg p.o. q.a.m.; Celexa 20 mg p.o. at bedtime, lactulose 30 mL p.o. b.i.d.; Xifaxan 550 mg p.o. b.i.d.; and multivitamin daily. ALLERGIES: NKDA. PAST MEDICAL HISTORY: 1. History of hepatic encephalopathy. 2. 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 3. Cirrhosis of the liver secondary to FLORES. 4. Esophageal varices and portal hypertension. 5. Paroxysmal atrial fibrillation and unable to take anticoagulation due to esophageal varices and pancytopenia. 6. Chronic renal insufficiency. 7. Hypertension. 8. Hypothyroidism. 9. B12 deficiency. 10. Chronic back pain. 11. Morbid obesity. 12. History of superficial thrombophlebitis, left forearm. PAST SURGICAL HISTORY: 1. L3 4, 5 fusion in 1997. 2. Lumbar laminectomy x2. 3. Right inguinal hernia repair in October 2015. 4. Umbilical hernia repair in March 2016. FAMILY HISTORY: Notable for father with DC at age 78. No strokes, diabetes, hypertension, or cancer in the family. SOCIAL HISTORY: Patient lives in [place]. He is times 1-1/2 years. He has 2 children. He is on disability secondary to chronic back pain and cirrhosis. Never been a smoker. Does not drink alcohol. REVIEW OF SYSTEMS: As above. PHYSICAL EXAMINATION: VITAL SIGNS: See chart. GENERAL: Morbidly obese white male in no acute distress. SKIN: No jaundice. No active bruises currently. HEENT: GENE. EOMI. Sclerae anicteric. OP no redness. Slightly dry mucous membranes. NECK: No LA, TMG, JVD, or bruits. CV: RRR without murmur. LUNGS: CTA. BACK: No CVA tenderness. ABDOMEN: Very protuberant, large. Active bowel sounds. Nontender. : Shows scrotal edema severe bilaterally. RECTAL: Deferred. EXTREMITIES: With 2+ lower extremity edema. NEUROLOGIC: Cranial nerves 2-12 are intact. No focal deficits. Alert and oriented x3. No asterixis. No confusion. LABORATORY DATA: White count 1.64, hemoglobin 6.7, hematocrit 20.5, platelets 55,000. PT 23.5, INR 1.93, PTT 46.8. Sodium 133, potassium 5.7, chloride 111, CO2 is 17, BUN 23, creatinine 2.1, glucose 85, calcium 7.9, total bilirubin 2.4, AST 50, ALT 19, alkaline phosphatase 120, ammonia 78, total protein 5.5, albumin 1.9. Lipase 41. Urinalysis, large blood. [id number]-count RBCs, negative leukocytes and WBCs, bacteria negative. chest x-ray reveals cardiomegaly, otherwise normal pulmonary vascularity. ASSESSMENT: 1. Profound anemia. 2. Pancytopenia secondary to hypersplenism which is directly related to his cirrhosis. 3. 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 4. Hepatic encephalopathy, currently stable on his lactulose and Xifaxan. 5. Esophageal varices. 6. Chronic renal insufficiency. 7. Hypothyroidism. 8. Chronic back pain. 9. B12 deficiency. 10. Esophageal varices without active bleeding. 11. Left arm superficial thrombophlebitis, improving. 12. Hyperkalemia. PLAN: We will admit the patient. Give him 2 units of PRBCs transfused slowly. Will continue his home medications. Change his Lasix over to IV. We will give him albuterol nebs to try to help with his hyperkalemia. Continue the Lasix and amiloride. Leave off Aldactone he was on in the past due to the hyperkalemia. Give him a heart healthy diet. He has been in conversation with [facility] and has been unable to procure an appointment with the transplant team until December. We are aiming for that appointment to get him on the transplant list. cc: Artem Quiroga MD
[2018-11-07] MEDS: XIFAXAN PO SCH (22:19)
[2018-11-07] MEDS: LACTULOSE PO SCH (22:19)
[2018-11-07] MEDS: CELEXA PO SCH (22:19)
[2018-11-08] MEDS ORDERED: LASIX IV SCH (04:30)
[2018-11-08 06:42] LABS: BASO# 0.02 X1000 (0.0-0.2); BASO% 1.5 % (0.0-0.8); EOS# 0.05 X1000 (0.0-0.7); EOS% 3.8 % (0.0-10.0); HEMATOCRIT 23.2 % (42.0-52.0); HEMOGLOBIN 7.5 g/dL (14.0-18.0); LYMPH# 0.38 X1000 (1.2-3.4); LYMPH% 28.8 % (20.5-51.1); MCHC 32.3 g/dL (33-37); MCV 92.8 FL (81-99); MONO# 0.19 X1000 (0.11-0.59); MONO% 14.4 % (1.7-9.3); NEUT# 0.68 X1000 (1.4-6.5); NEUT% 51.5 % (42.2-75.2); PLT 46 X1000 (130-400); RDW 14.3 % (11.5-14.5); WBC 1.32 X1000 (4.8-10.8)
[2018-11-08 07:14] LABS: CREATININE 2.1 mg/dL (0.7-1.2); POTASSIUM 4.7 mmol/L (3.5-5.1)
[2018-11-08] MEDS: ALBUTEROL NEB INH SCH ×5 (08:14→23:35)
--- NOTE | 2018-11-08 09:23 | PROGRESS NOTE ---
DATE: 11/08/2018 SUBJECTIVE: Patient alert. He is not confused. He says he feels better than he did yesterday. OBJECTIVE: Afebrile, pulse 52, respirations 16, blood pressure 114/48, O2 saturation room air 95%. Weight 340. Cardiovascular: Regular rate and rhythm. Lungs: Clear. Abdomen: Very protuberant, active bowel sounds, nontender. Extremities: 1+ lower extremity edema improved from yesterday. No weeping. Neuro: No asterixis. Cranial nerves 2-12 are intact. He is alert and oriented x3. LABORATORY DATA: White count down from 1.6 to 1.3, hemoglobin up from 6.7 to 7.5 after 2 units PRBCs transfused, platelets 46,000. Sodium 137, potassium 4.7, down from 5.7 yesterday, chloride 111, CO2 20, BUN 24, creatinine 2.1, calcium 8.0, ammonia level of up from 78 to 92. ASSESSMENT: 1. Profound anemia, slightly improved status post 2 units packed red blood cells transfused. 2. 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 3. Cirrhosis of the liver secondary to nonalcoholic steatosis end stage. 4. Hepatic encephalopathy, stable on lactulose and Xifaxan. 5. Chronic renal insufficiency. 6. Hypothyroidism. 7. Chronic back pain. 8. B12 deficiency. 9. Esophageal varices without active bleeding. 10. Left arm superficial thrombophlebitis, improved. 11. Hyperkalemia, improved. PLAN: Continue his Lasix and amiloride. Continue the Xifaxan and lactulose. We will monitor him in the hospital another day due to his severe pancytopenia. At this point, he has not been able to get into the clinic at [facility] earlier than expected regarding the transplant, but he is still scheduled for December. We will continue supportive measures until that date. We will monitor his labs and possibly discharge tomorrow if labs remain steady. cc: Artem Quiroga MD
[2018-11-08] MEDS: THERA M PLUS PO SCH (09:51)
[2018-11-08] MEDS: XIFAXAN PO SCH ×2 (09:51→21:12)
[2018-11-08] MEDS: COZAAR PO SCH (09:51)
[2018-11-08] MEDS: LASIX IV SCH (09:51)
[2018-11-08] MEDS: SYNTHROID PO SCH (09:51)
[2018-11-08] MEDS: CORGARD PO SCH (09:52)
[2018-11-08] MEDS: MIDAMOR PO SCH (09:52)
[2018-11-08] MEDS: LACTULOSE PO SCH ×2 (09:52→21:12)
--- NOTE | 2018-11-08 11:14 | PROVIDER DOCUMENTATION ---
This chart was entered by Briseida Doyle Scribe, acting as scribe for Francois Armendariz MD. HPI-General Adult - General Chief Complaint: Edema Stated Complaint: SWELLING Time Seen by Provider: 11/07/18 11:39 Source: patient Allergies/Adverse Reactions: Patient Allergies Allergy/AdvReac Type Severity Reaction Status Date / Time No Known Allergies Allergy Verified 04/25/18 16:14 Home Medications: Home Medication List Medication Instructions Recorded Confirmed Last Taken Type Amiloride [Midamor] 5 mg PO DAILY 04/25/18 10/04/18 11/07/18 History Citalopram [Celexa] 20 mg PO QHS 04/25/18 11/07/18 11/07/18 History Furosemide [Lasix] 80 mg PO DAILY 04/25/18 11/07/18 11/07/18 History Levothyroxine [Synthroid] 112 microgm PO DAILY 04/25/18 11/07/18 11/07/18 History Losartan [Cozaar] 25 mg PO DAILY 04/25/18 11/07/18 11/07/18 History Nadolol 10 mg PO DAILY 04/25/18 11/07/18 11/07/18 History Lactulose 30 ml PO BID #40 udc 04/28/18 11/07/18 11/07/18 Rx Multivit,Fe,Ca,FA & Min [Thera M 1 each PO DAILY tablet 04/28/18 11/07/18 Rx Plus] Rifaximin [Xifaxan] 550 mg PO BID #40 tab 04/28/18 11/07/18 11/07/18 Rx - History of Present Illness -Gen Adult Nature of Presenting Problems: 63 yowm presents to the [facility] per home health request. pt sts home health came in this am and noted edema, nausea, chronic diarrhea and sob of pt and suggested strongly he come to ed. pt sts has noted sob and edema has been worsening the last 3 days. pt has hx of ascites secondary to liver disease. Location of Pain/Injury: reports: abdomen (fullness), lower body Quality of Pain: reports: fullness Severity: reports: moderate Onset/Duration: reports: gradual Timing: reports: still present, getting worse (last 3 days) Context/Activities at Onset: reports: light activity Modifying Factors: improves with: nothing Associated Symptoms: reports: cough, diarrhea, fatigue, nausea, shortness of breath. denies: back/neck pain, chest pain, fever/chills, vomiting Similar Symptoms Previously?: Yes Recently seen or treated by another doctor?: No Review of Systems - Adult - REVIEW OF SYSTEMS - ADULT Constitutional: denies: chills, fever Eyes: reports: no symptoms reported Ears, Nose, Mouth & Throat: reports: no symptoms reported Cardiovascular: reports: edema, orthopnea. denies: chest pain, palpitations, syncope Respiratory: reports: see HPI, cough, dyspnea on exertion, shortness of breath. denies: wheezing Gastrointestinal: reports: see HPI, abdominal pain, diarrhea, nausea. denies: vomiting Genitourinary: reports: no symptoms reported Musculoskeletal: denies: back pain, neck pain Integumentary: reports: no symptoms reported Neurological: denies: dizziness/vertigo, headache/migraines Psychiatric: reports: no symptoms reported Endocrine: reports: no symptoms reported Hematologic/Lymphatic: reports: no symptoms reported Allergic/Immunologic: reports: no symptoms reported All Other Systems: Reviewed and Negative Past History - Adult - PAST MEDICAL HISTORY-ADULT Review of Records: reports: Nursing Assessment Review, Medications Reviewed Major Childhood Illnesses: reports: denies history Cardiovascular: reports: HTN Respiratory: reports: denies history Gastrointestinal: reports: other (liver cirrhosis) Genitourinary: reports: denies history Musculoskeletal: reports: chronic pain, neck/back injury Hand Dominance: Right Handed Neurological: reports: denies history Psychiatric: reports: depression Endocrine/Immune: reports: denies history Other Conditions: reports: denies history - PRIOR SURGERIES/PROCEDURES Surgical/Procedure History: reports: hernia repair, back/neck - IMMUNIZATION STATUS Childhood Immunizations: See Nurse Assessment Flu Vaccine: See Nurse Assessment - FAMILY HISTORY Family History: reviewed, not pertinent - SOCIAL HISTORY Smoking: denies Substance Use: denies Living Situation: family Physical Exam-General - PHYSICAL EXAM-ADULT Initial Vital Signs Reviewed: Yes - CONSTITUTIONAL General Appearance: alert, mild distress, obese - EYES Eyes: PERRL/EOMI, pink conjunctivae - HEAD, EARS, NOSE, MOUTH & THROAT HENMT: moist mucous membranes, dental decay - NECK Neck: normal inspection - RESPIRATORY Respiratory: chest non-tender, decreased breath sounds, crackles - CARDIOVASCULAR Cardiovascular: normal peripheral pulses, bradycardia (56) - GASTROINTESTINAL (ABDOMEN) Abdominal Exam: normal bowel sounds, soft, distended. negative: guarding, tenderness - GENITOURINARY Male Genitalia: deferred Rectal Exam: deferred Hemoccult Exam: deferred - LYMPHATIC Lymphatic: no adenopathy - MUSCULOSKELETAL Back Exam: normal inspection Extremity: no calf tenderness, normal capillary refill, pelvis stable, swelling (BLE edema), other (bottom of pt feet are covered n filth and has dry cracked skin noted) - SKIN Integumentary: normal color, normal turgor, warm/dry - NEUROLOGIC Neurologic: grossly normal - PSYCHIATRIC Psych/Mental Status: normal mood/affect, normal thought content, normal thought process, oriented x 3 Progress - PLAN OF CARE/RESULTS Progress/Plan/Lab Results: Vital Signs - 8 hr 11/07/18 11:04 11/07/18 11:36 11/07/18 11:37 Temperature 97.6 F Pulse Rate 56 L Respiratory Rate 22 Blood Pressure 126/64 129/60 O2 Sat by Pulse Oximetry 100 99 100 Orders Category Date Time Status CHEST-2 VIEWS [RAD] Stat Exams 11/07/18 11:47 Ordered AMMONIA [CHEM] Stat Lab 11/07/18 11:46 Uncollected CBC WITH ELECTRONIC DIFF [HEME] Stat Lab 11/07/18 11:46 Uncollected COMPREHENSIVE METABOLIC PANEL [CHEM] Stat Lab 11/07/18 11:46 Uncollected LIPASE [CHEM] Stat Lab 11/07/18 11:46 Uncollected PROTIME WITH INR [COAG] Stat Lab 11/07/18 11:47 Uncollected PTT [COAG] Stat Lab 11/07/18 11:47 Uncollected URINALYSIS W/POSS RFLX CULT [URINALYSIS] Stat Lab 11/07/18 11:47 Uncollected Result Diagrams: 11/08/18 06:05 11/08/18 06:05 - REASSESSMENT Reassessment #1 Time Reassessed: 14:19 Status: unchanged - XRAY 1 XRAY: Bilateral XRAY Study: Chest Impression: See EMR Report (CHEST-2 VIEWS - 11/07/2018 INDICATION: short of breath COMPARISON: 10/04/2018 FINDINGS: Heart size is borderline enlarged. Pulmonary vascularity is normal. No infiltrates or edema. No pneumothorax or pleural effusion. IMPRESSION: Borderline cardiomegaly. Electronically signed by Kevin Mojiac 11/07/2018 12:13 PM 11/07/18 1213 Interpreting Physician: Kevin Mojica MD Dictated Date/Time: 11/07/18 1212 cc: Francois Armendariz MD; Artem Morfin MD) - CONSULTS/PCP/HOSPITALIST Notification #1 *Consult/PCP/Hospitalist*: dr morfin pcp Time Discussed: :19 Consult Disposition: Admit Departure - Departure Date of Disposition Decision: 11/07/18 Time of Disposition Decision: 14:19 DIAGNOSIS: Increased ammonia level Cirrhosis Qualifiers: Hepatic cirrhosis type: unspecified hepatic cirrhosis Ascites presence: with ascites Qualified Code(s): K74.60 - Unspecified cirrhosis of liver; R18.8 - Other ascites Anemia Qualifiers: Anemia type: unspecified type Qualified Code(s): D64.9 - Anemia, unspecified Disposition: ADMITTED INPATIENT 09 Certified Medical Emergency: Emergent Condition: Serious - Critical Care Note This patient required my direct & personal management of CC.: No Attestation - Physician/ HENNA Attestation Patient care was provided by Advanced Practice Provider:: No The physician spent face to face time with patient:: Yes Advanced Practice Provider documentation review:: Supervising physician onsite and consulted in the evaluation and care of this patient. The physician did have a face to face encounter with the patient. This chart was documented by the indicated scribe, (Briseida Doyle Scribe) and accurately reflects the services I performed and decisions made by me, Francois Armendariz MD, as attested by the provider's signature.
[2018-11-08] MEDS: NS 500 ML IV SCH (11:54)
[2018-11-08] MEDS: CELEXA PO SCH (21:12)
[2018-11-09 06:59] LABS: BASO# 0.02 X1000 (0.0-0.2); BASO% 1.3 % (0.0-0.8); EOS# 0.07 X1000 (0.0-0.7); EOS% 4.4 % (0.0-10.0); HEMATOCRIT 22.6 % (42.0-52.0); HEMOGLOBIN 7.5 g/dL (14.0-18.0); LYMPH# 0.35 X1000 (1.2-3.4); MCH 30.5 PG (27-31); MCHC 33.2 g/dL (33-37); MCV 91.9 FL (81-99); MONO# 0.25 X1000 (0.11-0.59); MONO% 15.7 % (1.7-9.3); MPV 10.7 FL (7.4-10.4); NEUT% 56.6 % (42.2-75.2); PLT 53 X1000 (130-400); RBC 2.46 XMIL (4.7-6.1); RDW 14.1 % (11.5-14.5); WBC 1.59 X1000 (4.8-10.8)
[2018-11-09 07:13] LABS: CALCIUM 7.6 mg/dL (8.8-10.2); CREATININE 2.1 mg/dL (0.7-1.2); POTASSIUM 4.6 mmol/L (3.5-5.1)
[2018-11-09] MEDS: ALBUTEROL NEB INH SCH (07:26)
[2018-11-09 08:00] VITALS: BP 118/52
[2018-11-09] MEDS: MIDAMOR PO SCH (08:50)
[2018-11-09] MEDS: XIFAXAN PO SCH (08:50)
[2018-11-09] MEDS: CORGARD PO SCH (08:50)
[2018-11-09] MEDS: THERA M PLUS PO SCH (08:50)
[2018-11-09] MEDS: SYNTHROID PO SCH (08:50)
[2018-11-09] MEDS: COZAAR PO SCH (08:51)
[2018-11-09] MEDS: LACTULOSE PO SCH (08:51)
[2018-11-09] MEDS: LASIX IV SCH (08:51)
--- NOTE | 2018-11-09 09:02 | PROGRESS NOTE ---
DATE: 11/09/2018 SUBJECTIVE: Patient alert. He is sitting up, reading the newspaper. Denies confusion. Says he feels better overall. OBJECTIVE: Vital Signs: Afebrile. Vital signs stable. CV: RRR without murmur. Lungs: Clear. Abdomen: Very protuberant. Active bowel sounds. Nontender. Extremities: There is 1+ lower extremity edema. No weeping. Neurologic: Cranial nerves II through XII are intact. He moves all extremities well. No asterixis. No confusion. He is alert and oriented x3 despite ammonia being 113. LABORATORY DATA: Sodium is 135, potassium 4.6, chloride 109, CO2 of 22, BUN 24, creatinine 2.1. White count 1.59, hemoglobin 7.5, platelets 53,000. ASSESSMENT: 1. Profound anemia, improved status post 2 units of packed red blood cells transfused early in the course of hospitalization. 2. 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 3. 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 4. Hepatic encephalopathy, stable on lactulose and Xifaxan at high doses. 5. Chronic renal insufficiency. 6. Hypothyroidism. 7. Chronic back pain. 8. B12 deficiency. 9. Esophageal varices without active bleeding. 10. Left arm superficial thrombophlebitis, almost resolved. 11. Hyperkalemia, resolved. PLAN: Discharge home back on his home medications, particularly to include Lasix 80 mg daily, amiloride 5 mg daily, Xifaxan 550 b.i.d., lactulose 30 mL b.i.d. He will follow up in December with [facility] as he is trying to get a liver transplant, to get on the list. I spoke with Dr. Hall yesterday about his care, and he is in agreement with our current treatment plan. The patient will follow up with me in 2 weeks, and repeat CBC, ammonia, and BMP at that time. cc: Artem Quiroga MD
== END 2018-11-09 09:46 | disposition home health service (06) | DRG 809 ==
LOC: ED 10:58 → 4N 14:35
PROVIDERS: ADMIT Family Medicine; ATTEND Family Medicine
CPT/HCPCS: 36430; 71020; 71046; 80048; 80053; 81001; 82140; 83690; 85025; 85610; 85730; 86850; 86900; 86901; 86920; 94640; 94761; 99285; A9270; J1940; J7040; P9016

== ENCOUNTER 2018-12-14 17:20 | Observation (INO) ==
[2018-12-14] MEDS ORDERED: SALINE LOCK IV FLUID XX ONE (17:39)
[2018-12-14] MEDS ORDERED: ZOFRAN IV PRN (17:39)
[2018-12-14] MEDS ORDERED: LASIX IV SCH (17:45)
[2018-12-14] MEDS ORDERED: NS 500 ML ONE (21:41)
[2018-12-14] MEDS: LACTULOSE PO SCH (21:45)
[2018-12-14] MEDS: XIFAXAN PO SCH (21:45)
[2018-12-15 06:51] LABS: HEMATOCRIT 20.3 % (42.0-52.0); HEMOGLOBIN 6.7 g/dL (14.0-18.0); MCH 31.5 PG (27-31); MCV 95.3 FL (81-99); MPV 9.2 FL (7.4-10.4); RBC 2.13 XMIL (4.7-6.1); RDW 17.1 % (11.5-14.5); WBC 2.21 X1000 (4.8-10.8)
[2018-12-15 07:03] LABS: ALB/GLOB RATIO 0.6; ALBUMIN 1.8 g/dL (3.5-5.0); CALCIUM 9.3 mg/dL (8.8-10.2); CREATININE 2.9 mg/dL (0.7-1.2); POTASSIUM 4.1 mmol/L (3.5-5.1); TOTAL PROTEIN 4.9 g/dL (6.3-8.3)
[2018-12-15] MEDS: XIFAXAN PO SCH (08:29)
[2018-12-15] MEDS: LACTULOSE PO SCH (08:29)
[2018-12-15] MEDS ORDERED: CORGARD PO SCH (09:00)
[2018-12-15] MEDS ORDERED: LASIX PO SCH (09:00)
[2018-12-15] MEDS ORDERED: THERA M PLUS PO SCH (09:00)
[2018-12-15] MEDS ORDERED: MIDAMOR PO SCH (09:00)
[2018-12-15] MEDS ORDERED: NS 500 ML ONE (11:44)
--- NOTE | 2018-12-15 13:58 | PROGRESS NOTE ---
DATE: 12/15/2018 SUBJECTIVE: The patient is stable. He is currently sleeping. I had seen him earlier this morning around 8:30 a.m. and patient is without significant complaint. He received 2 units of PRBCs transfused overnight due to hemoglobin of 6.1 but the hemoglobin carmen to 6.7 and we have given him additional unit this morning transfused. That is currently finishing up. Will reassess his hemoglobin later this afternoon and if it has come up some we may be able to discharge him home at that time. OBJECTIVE: Afebrile, pulse 58, respirations 18, blood pressure 119/71, O2 saturation room air 99 to 100 percent. CV: RRR. Lungs: Clear. Abdomen: Very protuberant. Ascites prominent. Extremities: Lower extremities 2+ over 4 lower extremity edema. Neuro: Cranial nerves are intact. No asterixis. LAB DATA: Shows white count stable but low at 2.21, hemoglobin up from 6.1 yesterday to 6.7 today. May not have equilibrated by the time he got the blood drawl after receiving 2 units PRBCs transfused overnight. He is currently receiving his 3rd unit. Platelets 63,000 last evening, 43,000 this morning. Sodium 137, potassium 4.1, chloride 110, CO2 18, BUN 33, creatinine 2.9, glucose 96, calcium 9.3, total bilirubin 5, AST 13, ALT 15, alkaline phosphatase 95, ammonia level on admission 65, total protein 4.9. ASSESSMENT: 1. Profound anemia related to hypersplenism. 2. Pancytopenia secondary to hypersplenism. 3. 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 Bonilla with last visit done yesterday with Dr. Bonilla. The patient also followed at [facility] by the transplant team with hopes of getting on the transplant list at his next visit, which is 1 month from now. 4. Chronic renal insufficiency. 5. History of hepatic encephalopathy currently stable on high doses of lactulose and Xifaxan. 6. Hypothyroidism. 7. Chronic back pain. 8. History of esophageal varices without active bleeding. PLAN: We will complete the 3rd unit transfusion (of PRBCs), continue his home medications except leave off the Cozaar 25 mg daily. Reassess CBC and BMP later in the day and if he does well may be able to be discharged home. We discussed prognosis with he and his son last evening which is quite concerning, especially if he does not get on the transplant list soon regarding his liver. We will continue to treat him with supportive measures. cc: Artem Quiroga MD
[2018-12-15 14:00] LABS: HEMATOCRIT 22.6 % (42.0-52.0); MCV 93.8 FL (81-99); RBC 2.41 XMIL (4.7-6.1)
[2018-12-15 14:30] LABS: CALCIUM 8.8 mg/dL (8.8-10.2); CREATININE 2.9 mg/dL (0.7-1.2); HEMOGLOBIN 7.5 g/dL (14.0-18.0); MCH 31.1 PG (27-31); MCHC 33.2 g/dL (33-37); MPV 10.1 FL (7.4-10.4); POTASSIUM 4.4 mmol/L (3.5-5.1); RDW 17.8 % (11.5-14.5); WBC 2.95 X1000 (4.8-10.8)
[2018-12-15 15:57] VITALS: BP 145/69
[2018-12-15] MEDS ORDERED: CELEXA PO SCH (21:00)
[2018-12-16] MEDS ORDERED: SYNTHROID PO SCH (07:00)
--- NOTE | 2018-12-19 19:32 | HISTORY AND PHYSICAL ---
HISTORY OF PRESENT ILLNESS: The patient is a 63-year-old white male who suffers from severe cirrhosis of the liver related to FLORES and has severe hypersplenism. He is followed by Dr. Bonilla and by the transplant liver transplant team at [facility]. The patient has had the hypersplenism and sometimes requires blood transfusions due to low hemoglobin and he had repeat CBC done outpatient and hemoglobin was noted to have declined to 6.1. He is admitted for transfusion. He denies M and H. Still suffering from prominent anasarca. Has an appointment to follow up with the transplant team within the next month at [facility]. MEDICATIONS: Prior to admission are amiloride 5 mg p.o. daily Synthroid 112 mcg p.o. daily, losartan 25 mg p.o. daily, nadolol 20 mg half tablet p.o. daily, Lasix 80 mg p.o. q.a.m., Celexa 20 mg p.o. at bedtime, multivitamin 1 p.o. daily. He is on Xifaxan [address] b[address] per Dr. Bonilla and lactulose 30 mL p.o. b.i.d. ALLERGIES: NKDA. PAST MEDICAL HISTORY: 1. History of hepatic encephalopathy, on chronic lactulose and Xifaxan. 2. Pancytopenia secondary to hypersplenism associated with his cirrhosis. 3. Cirrhosis of the liver secondary to FLORES. 4. History of esophageal varices and portal hypertension with no active bleeding recently. 5. Paroxysmal atrial fibrillation, unable to take anticoagulation due to esophageal varices and pancytopenia. 6. Chronic renal insufficiency. 7. Morbid obesity. 8. Hypertension. 9. Hypothyroidism. 10. B12 deficiency. 11. Chronic back pain. PAST SURGICAL HISTORY: 1. Fusion L3, 4, 5 in 1997. 2. Lumbar laminectomy x2. 3. Right inguinal hernia repair October 2015. 4. Umbilical hernia repair March 2016. FAMILY HISTORY: Notable for father with NE at age 79. No strokes, diabetes, hypertension or cancer in the family. SOCIAL HISTORY: Patient lives in [place]. He is for the past year and a half. He has 2 children, which are very active in his care. He is on disability secondary to chronic back pain and cirrhosis. Never been a smoker. Does not drink alcohol. REVIEW OF SYSTEMS: As above. PHYSICAL EXAMINATION: VITAL SIGNS: See chart. GENERAL: Moderate to severely obese white male, mildly unkempt appearing. SKIN: Few scattered mild abrasions and contusions. Mild jaundice. HEENT: GENE EOMI. Sclerae minimal icterus. TMs clear. OP no redness. NECK: No LA, TMG, JVD, or bruits. CV: RRR. No murmur. LUNGS: CTA. ABDOMEN: Very protuberant. Ascites is prominent. GENITOURINARY/RECTAL: Deferred. EXTREMITIES: Two to 3+ lower extremity edema. NEUROLOGIC: CN 2 through 12 intact. LAB DATA: Shows white count of 2.21, hemoglobin 6.7, hematocrit 20.3, platelets 43,000. Sodium 137, potassium 4.1, chloride 110, CO2 18, BUN 33, creatinine 2.9, glucose 96, calcium 9.3, total bilirubin 5, AST 30, ALT 15, alkaline phosphatase 95, ammonia level 65, total protein 4.9, albumin 1.8. ASSESSMENT: 1. Pronounced anemia thought related to hypersplenism. No signs of active bleeding. 2. Pancytopenia, thought related to hypersplenism. 3. Cirrhosis of the liver with prominent ascites and anasarca followed by [facility] transplant team and by Dr. Bonilla. 4. FLORES leading to the cirrhosis. 5. Morbid obesity. 6. History of esophageal varices, not currently bleeding. 7. History of hepatic encephalopathy on chronic lactulose and Xifaxan. 8. Chronic back pain. 9. Hypothyroidism. 10. Chronic renal insufficiency. 11. B12 deficiency. PLAN: Admit the patient for 23-hour observation and give him blood transfusions. Likely 3 units of PRBCs will be needed over the next 24 hours slowly. We will continue his home medications, especially the Xifaxan and lactulose. We will reassess and possibly discharge the patient home. We are working to try to get him a his appointment at [facility] moved up as soon as we can. We will hold his Cozaar currently, due to his blood pressure being slightly low. cc: Artem Quiroga MD
== END 2018-12-15 18:38 | disposition home or self-care (01) ==
LOC: DIRADM → 4N 17:31
PROVIDERS: ADMIT Family Medicine; ATTEND Family Medicine

== ENCOUNTER 2019-02-22 12:47 | Inpatient (IN) ==
[2019-02-22] MEDS ORDERED: NS 500 ML IV ONE (13:46)
[2019-02-22 14:01] LABS: BLOOD TYPE ARTERIAL; SAMPLE BLOOD
[2019-02-22 14:02] LABS: ALLEN TEST YES; BE 0.1 mmoll (-3.0-3.0); METHB 0.8 % (0.0-1.5); O2(CT) 9.6 mL/dL (15.0-23.0); O2HB 96.3 % (95.0-99.0); PCO2(98.6) 27 mmHg (35-45); PO2(98.6) 79 mmHg (60-100); SAO2 99.6 % (95.0-100.0); pH(98.6) 7.53 (7.35-7.45)
[2019-02-22 14:04] LABS: MODALITY ROOM AIR
--- NOTE | 2019-02-22 14:21 | Diag Imaging Result Doc PS360 ---
EXAM: SHOULDER-RIGHT 02/22/2019 HISTORY: fall TECHNIQUE: Right shoulder two views COMMENT: There are degenerative changes in the acromioclavicular joint. There is no evidence of acute fracture or dislocation. IMPRESSION: No evidence of acute bony disease. Osteoarthritis. Electronically signed by Guy Buchanan 02/22/2019 2:19 PM
--- NOTE | 2019-02-22 14:21 | Diag Imaging Result Doc PS360 ---
EXAM: CHEST-PORTABLE 02/22/2019 HISTORY: ams, fall TECHNIQUE: AP portable supine at 1406 COMMENT: There is platelike atelectasis in the left base which appears slightly improved since 02/16/2019. Otherwise are has been no appreciable change. The inspiration is actually slightly less optimal on the current study. IMPRESSION: Improved atelectasis. Electronically signed by Guy Buchanan 02/22/2019 2:18 PM
--- NOTE | 2019-02-22 14:26 | Diag Imaging Result Doc PS360 ---
EXAM: CT HEAD W/O CONTRAST 02/22/2019 HISTORY: fall, AMS TECHNIQUE: This exam was performed using automated exposure control, adjustment of mA or kV according to patient size, and/or use of iterative reconstruction technique. COMMENT: There is no evidence of mass effect, bleed, or abnormal extra-axial fluid collection. There is a calcification in the globus pallidus on the left. Compared to 10/04/2018 there has been no significant change in the appearance of the brain. The visualized paranasal sinuses are clear. The calvarium is intact. IMPRESSION: No acute abnormality. Electronically signed by Guy Buchanan 02/22/2019 2:24 PM
[2019-02-22 14:55] LABS: BASO# 0.02 X1000 (0.0-0.2); BASO% 0.4 % (0.0-0.8); EOS# 0.02 X1000 (0.0-0.7); EOS% 0.4 % (0.0-10.0); HEMATOCRIT 21.5 % (42.0-52.0); HEMOGLOBIN 7.4 g/dL (14.0-18.0); IMM GRAN# 0.02 X1000 (0.0-0.04); IMM GRAN% 0.4 % (0.0-0.5); LYMPH# 0.39 X1000 (1.2-3.4); LYMPH% 7.3 % (20.5-51.1); MCH 32.2 PG (27-31); MCHC 34.4 g/dL (33-37); MCV 93.5 FL (81-99); MONO# 0.53 X1000 (0.11-0.59); MONO% 9.9 % (1.7-9.3); MPV 8.7 FL (7.4-10.4); NEUT# 4.39 X1000 (1.4-6.5); NEUT% 81.6 % (42.2-75.2); PLT 52 X1000 (130-400); RDW 17.6 % (11.5-14.5); WBC 5.37 X1000 (4.8-10.8)
[2019-02-22 15:01] LABS: INR 1.86; PROTIME 21.8 Seconds (11.0-16.0); PTT 46.3 Seconds (22.3-41.8)
--- NOTE | 2019-02-22 15:04 | EKG Report ---
Test Performed on : 02/22/2019 2:26:32 PM Test Reason : ams Blood Pressure : / mmHG Vent. Rate : 075 BPM Atrial Rate : 083 BPM P-R Int : 000 ms QRS Dur : 108 ms QT Int : 510 ms P-R-T Axes : 000 -22 017 degrees QTc Int : 569 ms Undetermined rhythm Nonspecific ST and T wave abnormality Prolonged QT Abnormal ECG When compared with ECG of 16-FEB-2019 11:35, (Unconfirmed) Current undetermined rhythm precludes rhythm comparison, needs review Unconfirmed Result
[2019-02-22 15:20] LABS: ALB/GLOB RATIO 0.9; ALBUMIN 2.5 g/dL (3.5-5.0); CALCIUM 8.3 mg/dL (8.8-10.2); CREATININE 3.2 mg/dL (0.7-1.2); MAGNESIUM 1.9 mg/dL (1.5-2.7); PHOSPHORUS 3.7 mg/dL (2.7-4.5); POTASSIUM 3.1 mmol/L (3.5-5.1); TOTAL BILIRUBIN 4.64 mg/dL (0.20-1.00); TOTAL PROTEIN 5.3 g/dL (6.3-8.3)
--- NOTE | 2019-02-22 15:21 | PROVIDER DOCUMENTATION ---
This chart was entered by Chloe Romeo Scribe, acting as scribe for Ry Hernandez MD. HPI-General Adult - General Chief Complaint: Weakness Stated Complaint: RIGHT SHOULDER PAIN Time Seen by Provider: 02/22/19 13:25 Source: family Allergies/Adverse Reactions: Patient Allergies Allergy/AdvReac Type Severity Reaction Status Date / Time No Known Allergies Allergy Verified 04/25/18 16:14 Home Medications: Home Medication List Medication Instructions Recorded Confirmed Last Taken Type Amiloride [Midamor] 10 mg PO PRN PRN 04/25/18 02/16/19 11/07/18 History Citalopram [Celexa] 20 mg PO QHS 04/25/18 02/16/19 02/13/19 History Levothyroxine [Synthroid] 112 microgm PO DAILY 04/25/18 02/16/19 02/13/19 History Lactulose 30 ml PO BID #40 udc 04/28/18 02/16/19 02/13/19 Rx Acetaminophen 325 mg PO PRN PRN 02/14/19 02/16/19 Unknown History Albuterol 2.5MG/Ipratrop 0.5MG 3 ml INH [id number] 02/14/19 02/16/19 02/13/19 History [Duoneb] Hydrocodone/Acetaminophen [[place] 1 ea PO Q4-6H PRN PRN 02/14/19 02/16/19 Unknown History 5-325 Tablet] Magnesium Hydroxide [Milk of 30 ml PO PRN PRN 02/14/19 02/16/19 Unknown History Magnesia] Melatonin/Pyridoxine HCl (B6) 1 ea PO HS 02/14/19 02/16/19 02/13/19 History [Melatonin 3 mg Tablet] Omeprazole [Prilosec] 20 mg PO DAILY@0700 02/14/19 02/16/19 02/13/19 History Ondansetron HCl [Zofran] 4 mg PO PRN PRN 02/14/19 02/16/19 02/06/19 History - History of Present Illness -Gen Adult Nature of Presenting Problems: Patient is a 63 year old male who presents to the ED via EMS after being found in the floor at home. Son states patient fell. Son states patient was seen in ED last week and was placed in rehab then discharged home. Son reports family is unable to care for the patient at home. History of end stage liver and renal d isease. Patient denies pain. Location of Pain/Injury: reports: none Quality of Pain: reports: none Severity: reports: mild Onset/Duration: reports: unsure Timing: reports: still present Associated Symptoms: reports: denies symptoms Similar Symptoms Previously?: Yes Recently seen or treated by another doctor?: Yes Review of Systems - Adult - REVIEW OF SYSTEMS - ADULT ROS:: limited per condition Constitutional: reports: no symptoms reported Eyes: reports: no symptoms reported Ears, Nose, Mouth & Throat: reports: no symptoms reported Cardiovascular: reports: no symptoms reported Respiratory: reports: no symptoms reported Gastrointestinal: reports: no symptoms reported Genitourinary: reports: no symptoms reported Musculoskeletal: reports: no symptoms reported. denies: back pain, muscle aches, neck pain Integumentary: reports: no symptoms reported Neurological: reports: no symptoms reported Psychiatric: reports: no symptoms reported Endocrine: reports: no symptoms reported Hematologic/Lymphatic: reports: no symptoms reported Allergic/Immunologic: reports: no symptoms reported All Other Systems: Reviewed and Negative Past History - Adult - PAST MEDICAL HISTORY-ADULT Review of Records: reports: Old Records Reviewed, Social history reviewed & non- contributory. Major Childhood Illnesses: reports: denies history Cardiovascular: reports: HTN Respiratory: reports: denies history Gastrointestinal: reports: other (liver cirrhosis) Obstetrical/Gynecological: reports: denies history Genitourinary: reports: dialysis, kidney disease Musculoskeletal: reports: denies history Neurological: reports: denies history Endocrine/Immune: reports: thyroid disorder Other Conditions: reports: denies history - PRIOR SURGERIES/PROCEDURES Surgical/Procedure History: reports: hernia repair - IMMUNIZATION STATUS Childhood Immunizations: See Nurse Assessment Flu Vaccine: See Nurse Assessment - FAMILY HISTORY Family History: reviewed, not pertinent - SOCIAL HISTORY Smoking: denies Substance Use: denies Physical Exam-General - PHYSICAL EXAM-ADULT Initial Vital Signs Reviewed: Yes - CONSTITUTIONAL General Appearance: alert, no apparent distress, lethargic. negative: combative - EYES Eyes: pale conjunctivae. negative: scleral icterus, subconjunctival hemorrhage - HEAD, EARS, NOSE, MOUTH & THROAT HENMT: normocephalic/atraumatic, other (dry mucous membranes). negative: angioedema - RESPIRATORY Respiratory: chest non-tender, lungs clear, decreased breath sounds (bilateral). negative: crackles, rales, rhonchi - CARDIOVASCULAR Cardiovascular: normal peripheral pulses, regular rate, rhythm. negative: tachycardia - GASTROINTESTINAL (ABDOMEN) Abdominal Exam: normal bowel sounds, non tender, distended. negative: guarding, rigid - MUSCULOSKELETAL Extremity: other (abrasion to bilateral elbows. 4 + pitting edema to bilateral lower extremities.). negative: deformity, erythema - SKIN Integumentary: normal turgor, warm/dry, abrasion(s) (bilateral elbows), pallor. negative: diaphoresis, ecchymosis, jaundice - PSYCHIATRIC Psych/Mental Status: other (lethargic). negative: normal mood/affect, anxious Progress - PLAN OF CARE/RESULTS Progress/Plan/Lab Results: Vital Signs - 8 hr 02/22/19 13:07 Temperature 97.8 F Pulse Rate 76 Respiratory Rate 18 Blood Pressure 105/54 O2 Sat by Pulse Oximetry 96 Result Diagrams: 02/22/19 14:29 - EKG 1 Time of EKG reading by physician:: 14:26 EKG Read and Signed by:: Ry Hernandez EKG Interpretation (*Must complete 3 of following elements*): Abnormal Rate: 75 Rhythm: undetermined rhythm Groom: normal Comments: prolonged QT; nonspecific ST and T wave abnormality. - XRAY 1 XRAY Study: Chest Impression: See EMR Report ( EXAM: CHEST-PORTABLE 02/22/2019 HISTORY: ams, fall TECHNIQUE: AP portable supine at 1406 COMMENT: There is platelike atelectasis in the left base which appears slightly improved since 02/16/2019. Otherwise are has been no appreciable change. The inspiration is actually slightly less optimal on the current study. IMPRESSION: Improved atelectasis. Electronically signed by Guy Buchanan 02/22/2019 2:18 PM 02/22/19 1418 Interpreting Physician: Guy Buchanan MD Dictated Date/Time: 02/22/19 1418 cc: Ry Hernandez MD; Artem Quiroga MD) 2 XRAY: Right XRAY Study: Shoulder Impression: See EMR Report ( EXAM: SHOULDER-RIGHT 02/22/2019 HISTORY: fall TECHNIQUE: Right shoulder two views COMMENT: There are degenerative changes in the acromioclavicular joint. There is no evidence of acute fracture or dislocation. IMPRESSION: No evidence of acute bony disease. Osteoarthritis. Electronically signed by Guy Buchanan 02/22/2019 2:19 PM 02/22/19 1419 Interpreting Physician: Guy Buchanan MD Dictated Date/Time: 02/22/19 141 cc: Ry Hernandez MD; Artem Quiroga MD) - CT/MRI 1 CT Study: Head Impression: See EMR Report ( EXAM: CT HEAD W/O CONTRAST 02/22/2019 HISTORY: fall, AMS TECHNIQUE: This exam was performed using automated exposure control, adjustment of mA or kV according to patient size, and/or use of iterative reconstruction technique. COMMENT: There is no evidence of mass effect, bleed, or abnormal extra-axial fluid collection. There is a calcification in the globus pallidus on the left. Compared to 10/04/2018 there has been no significant change in the appearance of the brain. The visualized paranasal sinuses are clear. The calvarium is intact. IMPRESSION: No acute abnormality. Electronically signed by Guy Buchanan 02/22/2019 2:24 PM 02/22/19 1424 Interpreting Physician: Guy Buchanan MD Dictated Date/Time: 02/22/19 1423 cc: Ry Hernandez MD; Artem Quiroga MD) - CONSULTS/PCP/HOSPITALIST Notification #1 *Consult/PCP/Hospitalist*: Dr. Quiroga Time Discussed: 14:48 Reason/Comments: Dr. Hernandez consulted with Dr. Quiroga about patient. Consult Disposition: Admit (consult Dr. Reaves), other (consult Dr. Reaves) #2 Consult: Dr. Reaves Time Discussed: 14:57 Reason/Comments: Dr. Hernandez consulted with Dr. Reaves about patient. Consult Disposition: other (patient will received dialysis today.) Departure - Departure Date of Disposition Decision: 02/22/19 Time of Disposition Decision: 15:20 DIAGNOSIS: Dyspnea and respiratory abnormalities, Hepatic encephalopathy syndrome, Hepatorenal syndrome, Frequent falls Altered mental status Qualifiers: Altered mental status type: disorientation Qualified Code(s): R41.0 - Disorientation, unspecified Disposition: ADMITTED INPATIENT 09 Certified Medical Emergency: Emergent Condition: Fair Referrals and Follow-Ups: Artem Quiroga MD [Primary Care Provider] - - Critical Care Note This patient required my direct & personal management of CC.: No Attestation - Physician/ HENNA Attestation Patient care was provided by Advanced Practice Provider:: No The physician spent face to face time with patient:: Yes Advanced Practice Provider documentation review:: Supervising physician onsite and consulted in the evaluation and care of this patient. The physician did have a face to face encounter with the patient. This chart was documented by the indicated scribe, (Chloe Romeo Scribe) and accurately reflects the services I performed and decisions made by me, Ry Hernandez MD, as attested by the provider's signature.
[2019-02-22] MEDS: XIFAXAN PO SCH (20:53)
[2019-02-22] MEDS: LACTULOSE PO SCH (20:54)
[2019-02-23 03:09] LABS: URINE SOURCE CLEAN CATCH
[2019-02-23 03:21] LABS: BILIRUBIN URINE MODERATE (NEGATIVE); BLOOD URINE MODERATE (NEGATIVE); COLOR YELLOW; GLUCOSE URINE NEGATIVE (NEGATIVE); KETONE URINE TRACE mg/dL (NEGATIVE); LEUKOCYTES URINE LARGE (NEGATIVE); NITRITE URINE NEGATIVE (NEGATIVE); PH URINE 5.5; PROTEIN URINE 50 mg/dL (NEGATIVE); SP GRAVITY URINE 1.022; TURBIDITY URINE HAZY (CLEAR); UROBILINOGEN URINE 3 mg/dL (NORMAL)
[2019-02-23 03:22] LABS: UR EPITHELIAL CELLS <10 /HPF (<10); URINE BACTERIA NEGATIVE /HPF; URINE WBC TNTC /HPF (<10)
[2019-02-23 03:49] LABS: URINE CASTS NONE SEEN; URINE CRYSTALS NONE SEEN; URINE SMALL ROUND CELLS NONE SEEN; URINE YEAST NONE SEEN
[2019-02-23] MEDS: PRILOSEC PO SCH (06:05)
--- NOTE | 2019-02-23 06:17 | NEPHROLOGY CONSULTATION ---
DATE: 02/22/2019 REASON FOR ADMISSION: Weakness with complaints of shoulder pain. REASON FOR CONSULT: End-stage renal disease with assistance with medical management. REQUESTING PHYSICIAN: Dr. Hernandez for Dr. Quiroga. HISTORY OF PRESENT ILLNESS: Mr. Sotelo is a 63-year-old white male who is now known to our services for outpatient hemodialysis at the [facility]. The patient had been hospitalized at [facility] for approximately 3 weeks with a recent discharge to [facility]. He had been dialyzed at that facility for this past month, was recently discharged this past weekend. He presented to [facility] on an outpatient basis on Tuesday, 02/16, for 3 units of packed red blood cells secondary to hypersplenism. His hemoglobin was 5.1 and was 8.1 upon discharge. The patient is currently lying on his side. He does open his eyes to verbal and tactile stimuli. He is nonverbal. He had recent multiple admissions for his liver disease and hepatorenal syndrome, hypersplenism with chronic anemia, altered mental status. The patient was to undergo a TIPS procedure at [facility], at which time he was deemed not a candidate secondary to previous cardiac/coronary artery disease issues. He was discharged over the weekend, is currently home. His family is having difficulty transferring the patient to dialysis at this time secondary to patient's large abdominal girth, his increased work of breathing, and inability to stand and transfer. His last dialysis treatment was yesterday, requiring family members to transport with assist. The patient has recently been taken off his Xifaxan and his lactulose after leaving [facility]. Son has questions today in regards with palliative care or hospice assistance with continuing of his hemodialysis. The patient is unable to discuss pain issues. Unable to obtain a complete review of systems due to his lethargy. PAST MEDICAL HISTORY: According to family members and previous charts, is cirrhosis of the liver secondary to FLORES, followed by Dr. Bonilla and the Weighmaster Lead at [facility] in [place]. 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 PAST SURGICAL HISTORY: Fusion of L3-4 in 1997, lumbar laminectomy x2, right inguinal hernia repair October 2015, umbilical hernia repair March 2016, placement of dialysis tunnel catheter to the right chest wall in December [address] [facility]. FAMILY HISTORY: Father at the age of 79 from an [place]. Otherwise, negative for renal disease. SOCIAL HISTORY: He is currently living with his son with assistance from his daughter and sister. He has been for approximately 2 years. He is on disability secondary to chronic back pain secondary with his cirrhosis. A nonsmoker. Does not drink alcohol or illicit drug use. CURRENT ALLERGIES: Currently listed as no known drug allergies. HOME MEDICATIONS: From the emergency room are listed as Midamor, Celexa, Synthroid, lactulose, acetaminophen, p.r.n. albuterol, hydrocodone, milk of magnesium, melatonin, paroxetine, omeprazole, ondansetron (Zofran). REVIEW OF SYSTEMS: As best obtained from chart, the patient is lethargic, unable to give report. Family is at the bedside. PHYSICAL EXAMINATION: General: This is a 63-year-old white male who is currently resting quietly on a stretcher in the emergency room. He opens eyes to tactile stimuli. Remains nonverbal. HEENT: Normocephalic, atraumatic. Conjunctivae pale, slight hemorrhage noted to the left greater than the right. Neck: Supple. Trachea midline. No JVD in the side positioning of this patient. Cardiovascular: Regular rate and rhythm on the monitor. He is tachycardic. No murmur or gallop auscultated. Lungs: Clear to auscultation bilaterally. Equal excursion on O2. Abdomen: Distended. No tenderness upon palpation with grimacing. Genitourinary: Not inspected. Minimal urine output with hepatorenal syndrome, dialysis assist. Extremities: The patient does have abrasions to his right elbow. He does have 2 to 3+ edema. Negative for clubbing or cyanosis. Integumentary: As mentioned. Warm and dry. Some abrasions noted to bilateral elbows. Neurological: As mentioned above. LABS: The patient has a white count of 5.37, hemoglobin 7.4, hematocrit 21.5 with a platelet count of 52,000. Sodium 132, potassium 3.1, chloride 94, CO2 of 23, BUN 32, creatinine 3.2. Glucose is 95, anion gap of 15, calcium 8.3, phosphorus 3.7, magnesium 1.9, albumin is 2.5, plasma lactate of 5.7. Elevated BNP of 4747. Ammonia level 117, total bilirubin 4.64, AST 27, ALT 12. Blood cultures are currently pending. Urine culture is currently pending. IMAGIN. Head CT on admission, no acute abnormalities. 2. Shoulder x-ray on the right shows no evidence of acute bony disease. He does have positive osteoarthritis. 3. Chest x-ray, improved atelectasis from previous admission. CURRENT VITAL SIGNS: Temperature 97.8 degrees, blood pressure 105/54, heart rate 76, respirations 18. He is on room air, last recorded saturation 96%. ASSESSMENT AND PLAN: 1. Chronic kidney disease stage 5D. The patient did have his routine dialysis treatment yesterday. We will plan for dialysis in the morning. 2. Electrolytes and acid-base balance. The patient has hypokalemia. We will give him a dose of p.o. potassium this evening. Recheck labs in the morning with correctional dialysis also in the morning. 3. Anemia. This remains low. Patient was transfused 3 units of packed red blood cells this past Tuesday. We may possibly need to transfuse in the morning. We will recheck a CBC. I would like to thank you for allowing us to follow with this patient. Dictated by KEVIN Garza for Jose Reaves MD cc: KEVIN Garza MD [facility]
[2019-02-23] MEDS ORDERED: HEPARIN IV PRN (06:47)
[2019-02-23] MEDS ORDERED: TIGHT: 0.2 ML/HR FOR DIALYSIS MISC PRN (06:47)
[2019-02-23] MEDS ORDERED: NS 2,000 ML MISC PRN (06:47)
--- NOTE | 2019-02-23 07:38 | HISTORY AND PHYSICAL ---
CHIEF COMPLAINT: Mental status change. HISTORY OF PRESENT ILLNESS: The patient is a 63-year-old white male followed in my medical practice. He is also followed by Dr. Bonilla and by [facility] transplant team. He has end-stage liver disease with history of hepatic encephalopathy. He comes in with confusion and falling frequently at home. He had just gotten out of the rehab facility at [place] in the last 3 to 5 days and family has been a unable to lift and care for him as he is frequently falling about. He has had confusion consistent with what he has had with his hepatic encephalopathy in the past and according to his son and his [id number], he has not been taking his lactulose. He was on that 30 mL t.i.d. at the rehab facility. MEDICATIONS: Other medications in rehab were Zofran 4 mg p.r.n., Tylenol 650 q.4 hours p.r.n., DuoNeb q.i.d., amiloride 10 mg p.o. daily p.r.n. swelling, Celexa 20 mg p.o. daily, [place] 5 p.o. q.4-6 hours p.r.n. pain, milk of magnesia 30 mL p.o. daily p.r.n. constipation, melatonin 3 mg p.o. at bedtime, Synthroid 112 mcg p.o. daily, omeprazole 20 mg p.o. daily. ALLERGIES: NKDA. PAST MEDICAL HISTORY: 1. Cirrhosis of the liver secondary to FLORES followed by Dr. Bonilla and also the furnace installer helper and transplant team at [facility]. He had a 13 week stay there and 9 L of fluid were drawn off of his abdomen according to his son via paracentesis. He was found to have some coronary artery disease and was deemed not a candidate for TIPS procedure or liver transplant. 2. Pancytopenia secondary to hypersplenism. 3. Hepatic encephalopathy. 4. Morbid obesity. 5. History of esophageal varices. 6. Chronic back pain. 7. Hypothyroidism. 8. End-stage renal disease on hemodialysis per Dr. Reaves. He was receiving that when he was in the rehab. He was taking it at [facility] in [place]. He had 2 days of hemodialysis at [facility] in [place] under Dr. Reaves within the past 4 days. 9. History of B12 deficiency. PAST SURGICAL HISTORY: 1. Fusion L3-4-5 in 1997. 2. Lumbar laminectomy x2. 3. Right inguinal hernia repair October 2015. 4. Umbilical hernia repair March 2016. FAMILY HISTORY: MD in his father at age 78, otherwise negative. SOCIAL HISTORY: The patient lives in [place]. His son and [id number] have been active in his care and caring for him as much as possible, but trying to work and unable to lift the large man that he is. He is for the past 2 years, two children, on disability secondary to chronic back pain and cirrhosis. No history of smoking. No alcohol use. REVIEW OF SYSTEMS: As above. PHYSICAL EXAMINATION: VITAL SIGNS: See chart. GENERAL: Morbidly obese white male who is confused, but cooperative. SKIN: There are some abrasions to the right elbow along the left forearm area with mild oozing and bloody discharge. PERRL. EOMI. Sclerae anicteric. OP, no redness, tongue in the midline. NECK: No LA. TMG. No bruits. Mild JVD. CV: RRR. No distinct murmur. LUNGS: CTA. Shallow respirations. BACK: Nontender to palpation. ABDOMEN: Very protuberant. There has been marked increase in ascites over the past 4 to 5 day since I last evaluated him in late January. EXTREMITIES: Two to 3+ lower extremity edema. NEUROLOGIC: Patient is arousable. He does recognize me, but appears moderately confused. He follows commands. No focal deficits. He is drowsy. LAB DATA: Shows white count 5.37, hemoglobin 7.4, platelets 52,000, neutrophils 81%, lymphocytes 7.3, monocytes 9.9. PT 21.8, INR 1.86, PTT 46.3. ABG on room air reveals pH 7.53, pCO2 27, PO2 79, HCO3 25, O2 saturation 99.6. Lactate level 5.5. Sodium 132, potassium 3.1, chloride 94, CO2 23, BUN 32, creatinine 3.2, glucose 95, calcium 8.3, phosphorus 3.7. Magnesium 1.9. Total bilirubin 4.64, AST 27, ALT 12, alkaline phosphatase 87. Ammonia level 117, whereas about a week ago it was in the 50s. Total CK 38. Troponin 0.025. ProBNP 4747. Total protein 5.3, albumin 2.5. X-ray right shoulder, no evidence of acute bony disease other than osteoarthritis. CT scan of the head without contrast reveals no acute abnormality. Chest x-ray shows improved atelectasis in the left base compared to 02/16/2019 x-ray. EKG shows possible junctional rhythm, nonspecific ST changes diffusely, prolonged QT. ASSESSMENT: 1. Hepatic encephalopathy. 2. 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 3. Pancytopenia secondary to hypersplenism. 4. History of esophageal varices. 5. Hypothyroidism. 6. Morbid obesity. 7. Frequent falls. PLAN: Blood cultures x2 and urine culture have been obtained due to elevated lactate level. Will consult Dr. Reaves and he will continue hemodialysis. We have discussed hospice care with the patient's son and he is desirous of that as he can no longer care for him at home optimally. He desires for him to have hospice care with continued hemodialysis with care at [facility] [place] [facility], but he prefers inpatient hospice care initially until these difficulties are stabilized. So, we will pursue resumption of lactulose, add Xifaxan and give omeprazole and Zofran and continue his Synthroid. Will keep him n.p.o. except for medications. Repeat TFTs in the morning. Follow his labs and transfuse if required. Dr. Reaves will be consulted with ongoing hemodialysis care. Follow the ammonia level and his neurological status closely. The patient will be made DNR level 1 per son's request. I have spoken with hospice personnel from [facility] and they will review the patient in palliative care here. [*] has been pursued. cc: Artem Quiroga MD
[2019-02-23 08:12] LABS: BASO# 0.03 X1000 (0.0-0.2); BASO% 1.1 % (0.0-0.8); EOS# 0.04 X1000 (0.0-0.7); EOS% 1.5 % (0.0-10.0); HEMATOCRIT 19.7 % (42.0-52.0); HEMOGLOBIN 6.6 g/dL (14.0-18.0); LYMPH# 0.51 X1000 (1.2-3.4); LYMPH% 18.5 % (20.5-51.1); MCH 31.9 PG (27-31); MCHC 33.5 g/dL (33-37); MCV 95.2 FL (81-99); MONO# 0.27 X1000 (0.11-0.59); MONO% 9.8 % (1.7-9.3); MPV 8.8 FL (7.4-10.4); NEUT% 69.1 % (42.2-75.2); PLT 48 X1000 (130-400); RBC 2.07 XMIL (4.7-6.1); RDW 17.9 % (11.5-14.5); WBC 2.75 X1000 (4.8-10.8)
[2019-02-23 08:27] LABS: ALB/GLOB RATIO 0.9; ALBUMIN 2.3 g/dL (3.5-5.0); CALCIUM 8.6 mg/dL (8.8-10.2); CREATININE 3.7 mg/dL (0.7-1.2); POTASSIUM 3.1 mmol/L (3.5-5.1); TOTAL BILIRUBIN 4.35 mg/dL (0.20-1.00)
[2019-02-23 08:37] LABS: FREE T4 0.39 ng/dL (0.93-1.70); TSH 86.2 uIUmL (0.27-4.20)
[2019-02-23] MEDS ORDERED: SYNTHROID PO SCH (09:00)
[2019-02-23] MEDS: XIFAXAN PO SCH ×2 (14:17→20:18)
[2019-02-23] MEDS: LACTULOSE PO SCH ×2 (14:17→20:17)
--- NOTE | 2019-02-23 19:09 | NEPHROLOGY PROGRESS NOTE ---
DATE: 02/23/2019 SUBJECTIVE: He is begging for water, otherwise no complaints. No nausea or vomiting. He remains very weak and lying in the bed. OBJECTIVE: Blood pressure 100/61, heart rate 81, respirations 20, afebrile. Generally he is chronically ill, in no acute distress. Skin is warm and dry. Pale. Conjunctivae are pale. Pupils are equal. Oropharynx is dry. Neck veins are distended. Heart is regular, with a gallop. Lungs are equal, shallow. No crackles. Abdomen distended, soft. Bowel sounds present. Extremities with trace edema. No clubbing or cyanosis. IMPRESSION AND PLAN: 1. Chronic kidney disease 5D. He will have his routine hemodialysis today using a 3K bath and his outpatient dry weight as tolerated. 2. Volume status. He has exogenous fluid overload, but his blood pressure significantly limits ultrafiltration. 3. Anemia. Transfuse during dialysis today. cc: Jose Reaves MD
--- NOTE | 2019-02-23 19:48 | PROGRESS NOTE ---
DATE: 02/23/2019 SUBJECTIVE: The patient more alert and is answering questions appropriately, does appear mildly lethargic but much improved from yesterday. OBJECTIVE: Vital Signs: Afebrile, pulse 68, respirations 18, blood pressure 104/39, O2 saturation room air 98%. Patient has undergone dialysis this morning. Received 2 units PRBCs transfused during that dialysis. Also, Dr. Reaves has assessed his potassium that was 3.1 during that dialysis session. CV: Regular rate and rhythm. Occasional ectopy. Lungs: Clear to auscultation. Abdomen: Very distended. Ascites noted prominently. Extremities: 2+ edema. Neurologic: Moves all extremities well. Follows commands well. He is alert and oriented x3. LABORATORY DATA: Shows white count 2.7, hemoglobin 6.6 prior to transfusion, platelets 48,000. Sodium 138, potassium 3.1, chloride 101, CO2 25, BUN 37, creatinine 3.7, calcium 8.6, total bilirubin 4.35, AST 25, ALT 11, alkaline phosphatase 77, ammonia level down to 63, albumin 2.3, total protein 5.0. TSH is elevated at 86.2, free T4 0.39. On questioning, the patient said he was taking the Synthroid at the rehab, but he has been home for just less than a week. Blood culture 1 of 2 coming back showing gram-positive cocci. ASSESSMENT: 1. Hepatic encephalopathy, improved back on lactulose and Xifaxan. 2. 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 3. Pancytopenia secondary to hypersplenism. 4. Esophageal varices, inactive. 5. Hypothyroidism. 6. Morbid obesity. 7. Frequent falls. 8. One of 2 blood cultures positive thought to be a contaminant. PLAN: We will monitor the blood cultures closely in regard to the latter and add antibiotics if any signs of difficulty. Otherwise, continue lactulose and Xifaxan and will advance his diet, increase his Synthroid from 112 mcg daily to 150 mcg daily and monitor thyroid function test in about 2 months. Follow the ammonia levels. Hospice has seen the patient and they are evaluating him in regard to that. He will continue dialysis with Dr. Reaves. cc: Artem Quiroga MD
[2019-02-23] MEDS: CELEXA PO SCH (20:17)
--- NOTE | 2019-02-23 20:19 | PROGRESS NOTE ---
DATE: 02/23/2019 SUBJECTIVE/PLAN: I have now spoken with the hospice team who has been in contact with the patient's son. Mr. Sotelo is in and out in regard to his mentation, and is deemed not competent to make his healthcare decisions at this point from my assessment. He was much worse yesterday than he is today, but he cannot maintain judgment to make these decisions for himself. His oldest son, Yann, is his power of attorney general, and the family has agreed to stop dialysis in regard to his ongoing care, and desires for him to be made inpatient hospice. Thus, arrangements are being made in that regard. The patient is DNR level 1 as listed on the chart. We will pursue comfort measures and supportive care. cc: Artem Quiroga MD
[2019-02-23] MEDS: DUONEB (A & A) INH SCH (21:28)
[2019-02-24] MEDS: DUONEB (A & A) INH SCH ×5 (03:48→22:20)
[2019-02-24] MEDS: PRILOSEC PO SCH (06:38)
[2019-02-24] MEDS: SYNTHROID PO SCH (06:38)
[2019-02-24 07:27] LABS: CALCIUM 8.1 mg/dL (8.8-10.2); CREATININE 2.8 mg/dL (0.7-1.2); POTASSIUM 3.1 mmol/L (3.5-5.1)
[2019-02-24 07:30] LABS: HEMATOCRIT 21.2 % (42.0-52.0); HEMOGLOBIN 7.1 g/dL (14.0-18.0); MCHC 33.5 g/dL (33-37); MCV 95.5 FL (81-99); MPV 9.8 FL (7.4-10.4); RBC 2.22 XMIL (4.7-6.1); WBC 2.49 X1000 (4.8-10.8)
[2019-02-24] MEDS: XIFAXAN PO SCH ×2 (08:31→20:18)
[2019-02-24] MEDS: LACTULOSE PO SCH ×2 (08:31→20:18)
--- NOTE | 2019-02-24 15:05 | PROGRESS NOTE ---
DATE: 02/24/2019 SUBJECTIVE: The patient has no complaints. Initially I was checking him and he did not seem arousable. I called his name again and he woke up and was coherent. I asked him if he was hurting anywhere and he said no. I asked him if he needed anything, he said he wanted to go home. It should be noted that he has had altered mental status. He comes in an out of that and Dr. Quiroga does not think that he is competent to make his own decisions for this. He has been talking with his oldest son, Yann, who has power of district attorney. At this time, the patient is a DNR level 1. OBJECTIVE: Blood pressure is 114/62, respirations 16, pulse 62, temperature 97.7 degrees Fahrenheit.HEENT: Normocephalic. EOMs intact. PERRLA. Throat clear. Lungs: Sound clear to auscultation and percussion without rhonchi, rales, or wheezes. Heart: Regular rate and rhythm without murmurs, gallops, or friction rubs. Abdomen: Distended. Neurological: Seems competent at this time but apparently comes in and out of it. The patient has a pancytopenia from his liver disease with white count this morning of 2.49, hemoglobin 7.1, hematocrit 21.2, and platelet count of 27,000. ASSESSMENT: 1. 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 2. Pancytopenia due to hypersplenism. 3. Hepatic encephalopathy. 4. Morbid obesity. 5. History of esophageal varices. 6. Chronic back pain, though he is not complaining of this now. 7. Hypothyroidism. 8. End-stage renal disease on dialysis. It is my understanding that the dialysis may be stopped and we are not sure about this. Dr. Reaves will be talking with family members. PLAN: Will continue supportive measures plus lactulose/Xifaxan. There is some discussion about hospice. I am not sure that he is a candidate, according to the nurses. cc: Miles Crystal Jr, MD
[2019-02-24] MEDS: CELEXA PO SCH (20:18)
[2019-02-24] MEDS: NORCO-5 PO PRN (21:39)
--- NOTE | 2019-02-24 21:48 | NEPHROLOGY PROGRESS NOTE ---
DATE: 02/24/2019 SUBJECTIVE: He is sleeping, lying on his side. He states he ate some. Denies shortness of breath, nausea or vomiting. OBJECTIVE: Blood pressure 121/66, heart rate 73, respiration 18, afebrile. Generally, no acute distress. Skin is warm and dry, pale. Neck veins are not appreciated. Heart is distant but regular. Lungs are equal, shallow. No crackles. Abdomen soft, distended. Ascites. Bowel sounds present.Extremities: Edema 2+. No clubbing or cyanosis. IMPRESSION AND PLAN: 1. Chronic kidney disease stage 5D. He will have his next planned dialysis treatment on Tuesday. 2. Electrolytes/acid base acceptable. 3. Anemia. Hemoglobin 7.1 today. We will likely transfuse again on Tuesday. 4. Disposition: Discussion ongoing regarding hospice. We will follow with you. cc: Jose Reaves MD
[2019-02-25] MEDS: DUONEB (A & A) INH SCH ×4 (04:06→21:11)
[2019-02-25] MEDS: SYNTHROID PO SCH (06:12)
[2019-02-25] MEDS: PRILOSEC PO SCH (06:12)
[2019-02-25] MEDS: LACTULOSE PO SCH ×2 (11:13→20:56)
[2019-02-25] MEDS: XIFAXAN PO SCH ×2 (11:13→20:56)
--- NOTE | 2019-02-25 13:39 | PROGRESS NOTE ---
DATE: 02/25/2019 SUBJECTIVE: The patient says he is feeling fine. He just would like to go home. I think there are some decisions to be made by his family and whether he will be with hospice as an outpatient or not. OBJECTIVE: Blood pressure is 97/44, respirations 18, pulse 81, temperature 98.3 degrees Fahrenheit, oxygen saturation is 97% on 2 L per nasal cannula. LABORATORY: Shows white count down to 2490, hemoglobin 7.1, platelet count 27,000. Potassium 3.1, creatinine 2.8, BUN 27. He is scheduled for dialysis tomorrow. Though he had pyuria, urine showed no growth.HEENT: He is normocephalic. EOMS intact. PERRLA. Throat clear. Lungs: Clear to auscultation and percussion without rhonchi, rales, or wheezes. Heart: Regular rate and rhythm without murmurs, gallops, or friction rubs. Abdomen: Distended with some bowel sounds. Neurologic: Patient has some dementia. ASSESSMENT: 1. Cirrhosis secondary to nonalcoholic steatohepatitis. 2. Pancytopenia due to hypersplenism. 3. Hepatic encephalopathy. 4. Morbid obesity. 5. History of esophageal varices. 6. Chronic low back pain. 7. Hypothyroidism. 8. End-stage renal disease on dialysis. PLAN: Continue supportive measures including his lactulose/Xifaxan. cc: Miles Crystal Jr, MD
[2019-02-25] MEDS: CELEXA PO SCH (20:56)
[2019-02-26] MEDS: DUONEB (A & A) INH SCH ×4 (03:26→21:22)
[2019-02-26] MEDS: PRILOSEC PO SCH (06:20)
[2019-02-26] MEDS: SYNTHROID PO SCH (06:20)
[2019-02-26] MEDS ORDERED: NS 500 ML IV ONE (07:22)
[2019-02-26] MEDS ORDERED: NS 2,000 ML MISC PRN (07:23)
[2019-02-26] MEDS ORDERED: HEPARIN IV PRN (07:23)
[2019-02-26] MEDS ORDERED: TIGHT: 0.2 ML/HR FOR DIALYSIS MISC PRN (07:23)
[2019-02-26 08:16] LABS: CALCIUM 8.4 mg/dL (8.8-10.2); PHOSPHORUS 4.4 mg/dL (2.7-4.5); POTASSIUM 3.2 mmol/L (3.5-5.1)
[2019-02-26 08:20] LABS: HEMATOCRIT 27.6 % (42.0-52.0); HEMOGLOBIN 9.1 g/dL (14.0-18.0); MCH 31.7 PG (27-31); MCV 96.2 FL (81-99); MPV 10.4 FL (7.4-10.4); RBC 2.87 XMIL (4.7-6.1); RDW 18.8 % (11.5-14.5); WBC 3.84 X1000 (4.8-10.8)
[2019-02-26] MEDS: XIFAXAN PO SCH ×2 (13:21→20:18)
[2019-02-26] MEDS: LACTULOSE PO SCH ×2 (13:21→20:18)
--- NOTE | 2019-02-26 15:05 | NEPHROLOGY PROGRESS NOTE ---
DATE: 02/26/2019 SUBJECTIVE: Patient resting in bed. He is waiting to go to dialysis. OBJECTIVE: Vital Signs: Temperature 98 degrees, pulse 68, respiratory rate 18, blood pressure 89/51. Intake 800 mL. Output not documented. General: Elderly gentleman resting in bed. Does not appear in any distress. HEENT: Normocephalic, atraumatic. Conjunctivae are pale. Oral mucosa dry. Neck: Supple without JVD. Cardiovascular: Regular rate and rhythm. No murmur. Pulmonary: He is clear bilaterally. He has no increased work of breathing. Abdomen: Distended but soft. No tenderness. Genitourinary: Not inspected. Minimal void. Hemodialysis assist. Extremities: 1+ edema. Integumentary: Skin is pale, warm, and dry. LABORATORY DATA: Pending. ASSESSMENT AND PLAN: 1. Chronic kidney disease 5D. Today is his routine dialysis day. Tentatively plan on a 2 K bath, UF to his dry weight 3.5 hour treatment. We will hold his heparin. 2. Anemia. His last CBC had a hemoglobin of 7.1. Anticipate transfusion. I will go ahead and order a type and cross and plan to transfuse 1 unit on dialysis unless his labs indicate otherwise. 3. Electrolytes, acid-base balance again see above for plan. 4. Cirrhosis secondary to nonalcoholic steatohepatitis and pancytopenia secondary to hypersplenism. He is being followed by the primary with that. He continues on lactulose and Xifaxan. 5. Unclear what the disposition is. He states he expects to go back to a SNF. rg Dictated by KEVIN Murillo for Jose Reaves MD Face to face encounter, data reviewed, discussed with Sam Conway on 02/26/19. I agree with the above assessment and plan of care. rg cc: MD Artem Morales MD [facility]
--- NOTE | 2019-02-26 20:00 | PROGRESS NOTE ---
DATE: 02/26/2019 SUBJECTIVE: The patient overall improved. He is eating some. He is more alert than last week. He is tolerating dialysis which he continues to want to undergo at this time. He is unable to return home as his son is working and is unable to care for him at home. He desires to go to shelter to pursue hemodialysis while he resides at the shelter. OBJECTIVE: Vital Signs: Afebrile. Vital signs stable. Cardiovascular: Regular rate and rhythm. Lungs: Clear. Abdomen: Very protuberant and distended. Active bowel sounds. Extremities: 1+ lower extremity edema. Neurologic: No asterixis. Alert and oriented x3. LABORATORY DATA: Shows white count 3.8, hemoglobin 9.1, platelets 48,000. Sodium 129, potassium 3.2, chloride 94, CO2 21, BUN 31, creatinine 4.0, calcium 8.4, phosphorus 4.4, albumin 2.0. ASSESSMENT: 1. Hepatic encephalopathy, now controlled with lactulose and Xifaxan. 2. 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 3. Pancytopenia secondary to hypersplenism. 4. Esophageal varices, inactive. 5. End-stage renal disease on hemodialysis. 6. Hypothyroidism. 7. Morbid obesity. 8. Frequent falls. 9. Hypothyroidism., PLAN: Continue supportive measures. Continue present medications. [employer] is working with the patient and his family to try to find a shelter placement and we will plan to continue hemodialysis. cc: Artem Quiroga MD
[2019-02-26] MEDS: CELEXA PO SCH (20:18)
[2019-02-27] MEDS: DUONEB (A & A) INH SCH ×4 (03:45→20:40)
[2019-02-27] MEDS: SYNTHROID PO SCH (06:10)
[2019-02-27] MEDS: PRILOSEC PO SCH (06:10)
--- NOTE | 2019-02-27 09:24 | PROGRESS NOTE ---
DATE: 02/27/2019 SUBJECTIVE: The patient is alert and eating his breakfast. He has no complaints. OBJECTIVE: Afebrile. Vital signs stable.CV: Regular rate and rhythm. Lungs: Clear. Abdomen: Pronounced ascites with distention. Active bowel sounds. No point tenderness. Extremities: 2+ lower extremity edema, left slightly greater than right. No calf tenderness or cords. Neurologic: No asterixis. Alert orient x3. No major confusion. LABS: Reviewed from yesterday ASSESSMENT: 1. Hepatic encephalopathy stabilized now on lactulose and Xifaxan. 2. 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 3. Pancytopenia secondary to hypersplenism. 4. Esophageal varices with no active bleeding. 5. End-stage renal disease on hemodialysis. 6. Hypothyroidism. 7. Morbid obesity. 8. Frequent falls. PLAN: Continue supportive measures. Ongoing hemodialysis on Tuesday, Wednesdays, and Fridays per patient and per patient's request and signed is in agreement. Long-term healthcare facility is being sought, one that will provide transportation to and from dialysis so social Work is working with [facility] at this point to see if that is feasible. cc: Artem Quiroga MD
--- NOTE | 2019-02-27 10:32 | Diag Imaging Result Doc PS360 ---
US ABD PARACENTESIS W S/I - 02/27/2019 INDICATION: worsening ascites, dyspnea, FLORES COMPARISON: 08/18/2018 FINDINGS: The risks and benefits of the procedure were discussed with the patient. All questions were answered. Written and verbal consent was obtained. Ultrasound scanning demonstrated ascites. Overlying skin was prepped and draped in sterile fashion. Local anesthesia was achieved with injection of 10 cc 1% lidocaine. The paracentesis catheter was advanced until the return of ascites fluid. 13 L of dark zane fluid was aspirated. The catheter was withdrawn intact. There were no known complications. 60 g of 25% albumin IV was ordered after the study. IMPRESSION: Technically successful ultrasound-guided paracentesis with no known complications. Electronically signed by Jama Cooper 02/27/2019 10:30 AM
[2019-02-27] MEDS ORDERED: ALBUMIN 25% IV ONE (10:45)
[2019-02-27] MEDS: LACTULOSE PO SCH ×2 (11:04→20:26)
[2019-02-27] MEDS: XIFAXAN PO SCH ×2 (11:04→20:26)
--- NOTE | 2019-02-27 11:30 | NEPHROLOGY PROGRESS NOTE ---
DATE: 02/27/2019 SUBJECTIVE: Patient resting in bed. Complaining that his distention is worse. The edema is worse. OBJECTIVE: Vital Signs: Temperature 98.1 degrees, pulse 80, respiratory rate 14, blood pressure 110/62. Intake 984, output - he had dialysis yesterday, that amount was not documented. General: Chronically ill-appearing, elderly gentleman, resting in bed. He is awake and alert. HEENT: Normocephalic, atraumatic. Conjunctivae remain pale. Oral mucosa dry. Neck: Supple. Cardiovascular: Regular rate and rhythm. Pulmonary: Clear bilaterally. Abdomen: Significantly distended and tight. No tenderness. : He has scrotal edema. Extremities: He has 2+ edema from the thighs down. Integumentary: Skin is warm and dry. LABORATORY DATA: Lab data is pending. Yesterday prior to dialysis, his WBC was 3.8, hemoglobin was 9.1. Sodium 129, potassium 3.2, creatinine was 4.0, calcium 8.4, and albumin 2.0. ASSESSMENT AND PLAN: 1. Chronic kidney disease 5D. Dialyzes on Tuesday, Tuesday, Tuesday. His next planned dialysis will be on Tuesday. Will check his labs in the morning to determine his dialysis bath and if he needs an additional blood transfusion. He had modest increase with his transfusion prior to yesterday's dialysis treatment, and did not require a transfusion. 2. Cirrhosis secondary to nonalcoholic steatohepatitis, ascites. His ascites appears worsening. Will order a therapeutic ultrasound-guided paracentesis. 3. Anemia. Again, will check labs in the morning. 4. Disposition. We understand that he will go back to longterm. Will continue with current treatment plan. 11L paracentesis. We will re-weigh and adjust dialysis target weight. rg Dictated by KEVIN Murillo for Jose Reaves MD Face to face encounter, data reviewed, discussed with Sam Conway on 02/27/19. I agree with the above assessment and plan of care. manuel cc: MD Artem Morales MD [facility]
[2019-02-27] MEDS: CELEXA PO SCH (20:26)
[2019-02-27] MEDS: NORCO-5 PO PRN (20:34)
[2019-02-28] MEDS: DUONEB (A & A) INH SCH ×4 (03:49→21:16)
[2019-02-28] MEDS ORDERED: NS 2,000 ML MISC PRN (06:24)
[2019-02-28] MEDS ORDERED: HEPARIN IV PRN (06:24)
[2019-02-28] MEDS ORDERED: TIGHT: 0.2 ML/HR FOR DIALYSIS MISC PRN (06:24)
[2019-02-28] MEDS: SYNTHROID PO SCH (06:31)
[2019-02-28] MEDS: PRILOSEC PO SCH (06:32)
[2019-02-28 08:01] LABS: ALLEN TEST NO; BE 1.1 mmoll (-3.0-3.0); BLOOD TYPE ARTERIAL; HCO3-(ACT) 25.8 mmoll (20.0-26.0); METHB 0.7 % (0.0-1.5); O2(CT) 11.4 mL/dL (15.0-23.0); O2HB 96.6 % (95.0-99.0); PCO2(98.6) 24 mmHg (35-45); PO2(98.6) 90 mmHg (60-100); SAMPLE BLOOD; SAO2 99.8 % (95.0-100.0); THB 8.3 g/dL (11.5-17.4)
[2019-02-28 08:04] LABS: MODALITY CANNULA; pH(98.6) 7.58 (7.35-7.45)
--- NOTE | 2019-02-28 08:36 | Diag Imaging Result Doc PS360 ---
EXAM: CT HEAD W/O CONTRAST 02/28/2019 HISTORY: AMS significant change TECHNIQUE: This exam was performed using automated exposure control, adjustment of mA or kV according to patient size, and/or use of iterative reconstruction technique. COMMENT: There is some lucency in the subcortical white matter in the posterior parietal lobes particularly on the right. There is no evidence of mass effect or bleed. Compared to 02/22/2019 there has been no appreciable change. The calvarium is intact. The visualized paranasal sinuses are clear. IMPRESSION: Minimal chronic microvascular changes. No evidence of acute intracranial disease. Electronically signed by Guy Buchanan 02/28/2019 8:34 AM
[2019-02-28 08:55] LABS: BASO# 0.04 X1000 (0.0-0.2); BASO% 0.7 % (0.0-0.8); EOS# 0.06 X1000 (0.0-0.7); EOS% 1.1 % (0.0-10.0); HEMATOCRIT 24.3 % (42.0-52.0); HEMOGLOBIN 8.2 g/dL (14.0-18.0); LYMPH# 0.65 X1000 (1.2-3.4); LYMPH% 11.7 % (20.5-51.1); MCH 31.1 PG (27-31); MCHC 33.7 g/dL (33-37); MONO# 0.65 X1000 (0.11-0.59); MONO% 11.7 % (1.7-9.3); MPV 9.5 FL (7.4-10.4); NEUT# 4.15 X1000 (1.4-6.5); NEUT% 74.8 % (42.2-75.2); PLT 56 X1000 (130-400); RBC 2.64 XMIL (4.7-6.1); RDW 18.1 % (11.5-14.5); WBC 5.55 X1000 (4.8-10.8)
[2019-02-28 09:07] LABS: ALBUMIN 2.4 g/dL (3.5-5.0); CALCIUM 8.6 mg/dL (8.8-10.2); CREATININE 3.3 mg/dL (0.7-1.2); POTASSIUM 3.6 mmol/L (3.5-5.1); TOTAL BILIRUBIN 5.12 mg/dL (0.20-1.00); TOTAL PROTEIN 4.7 g/dL (6.3-8.3)
[2019-02-28] MEDS: LACTULOSE PO SCH (10:37)
[2019-02-28] MEDS: XIFAXAN PO SCH (10:37)
[2019-02-28] MEDS: NON-FORMULARY MED PR SCH ×3 (11:50→22:26)
--- NOTE | 2019-02-28 13:29 | NEPHROLOGY PROGRESS NOTE ---
DATE: 02/28/2019 TIME SEEN: 0700 a.m. SUBJECTIVE: Patient with significant altered mental status. He is yelling out. Not responsive to commands. OBJECTIVE: Vital signs: Afebrile, pulse 104, respiratory rate 25, blood pressure 125/64. Intake 1.7, output was not documented but he did have a paracentesis yesterday with 13 L of fluid aspirated. PHYSICAL EXAMINATION: General: This is an acutely ill-appearing elderly gentleman, who is currently in bed. His eyes are open. His gaze is diverted to the left. His pupils are reactive. He is calling out. He does not follow any commands. HEENT: Normocephalic, atraumatic. His pupils again are reactive with gaze to the left. Oral mucosa dry. Neck: Supple without JVD. Cardiovascular: Regular rate and rhythm. Pulmonary: Decreased breath sounds. Abdomen: Distended but soft. : Continues with urine output. Extremities: 2+ edema. His left upper extremity is extended almost to a posturing motion. He is moving his lower extremities. Integumentary: Skin is warm and dry. LAB DATA: WBC if 5.5, hemoglobin 8.2. Sodium 136, potassium 3.6, CO2 19, creatinine 3.3, calcium 8.6, albumin 2.4. ASSESSMENT AND PLAN: 1. Chronic kidney disease 5D. Today is his routine dialysis day, however, because of the significant change in the patient's status, we have discussed with the Primary and he will be transferred to the intensive care unit. We will go ahead and order a CT of the head, ammonia level, and ABGs. Once we have him stabilized, we will determine if we will be able to dialyze this evening. 2. Cirrhosis secondary to nonalcoholic steatohepatitis. He had a paracentesis yesterday. We are checking an ammonia level secondary to the above. 3. Fluid volume. Again, we have adjusted his outpatient weight secondary to his procedure yesterday. Dictated by KEVIN Murillo for Jose Reaves MD Face to face encounter, data reviewed, discussed with Sam Conway on 02/28/19. I agree with the above assessment and plan of care. cc: MD Artem Morales MD MTDD
[2019-02-28] MEDS ORDERED: TYLENOL PR PRN (15:45)
--- NOTE | 2019-02-28 19:01 | PROGRESS NOTE ---
DATE: 02/28/2019 SUBJECTIVE: Patient evaluated 3 times during the day today by myself. The patient was seen early this morning by Dr. Reaves, and Dr. Reaves called me stating the patient was obtunded, had some straightening of his left arm, and his eyes were not following. He was obtunded. I went and evaluated the patient myself, and the patient was loud and saying some intelligible words over and over again in the same pattern. He did have stiffness of his left arm, was not following commands, and moving around with his gaze. CT scan of the head was obtained and was negative, except for some chronic microvascular changes. His ammonia level was high in the mid 100s, despite taking Xifaxan and lactulose as ordered. It had been coming down prior to this. He did have 13 L of fluid removed via ultrasound-guided paracentesis ordered per Dr. Reaves yesterday. OBJECTIVE: Afebrile early this morning. Temperature has crept up into the mid 100 range this evening. Vital signs stable. O2 saturation is 98% most of the day. Cardiovascular: RRR. Lungs: CTA. Abdomen: Less distended from yesterday after the paracentesis. Extremities: Trace to 1+ lower extremity edema. Neurologic: Patient is obtunded. He has received some lactulose enemas today, and he is no longer yelling, and does not have the rigidity in his left arm. He is obtunded still. ASSESSMENT: 1. Hepatic encephalopathy. 2. End-stage renal disease, on hemodialysis. 3. 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 4. Esophageal varices with no signs of bleeding. 5. History of hypertension. 6. Hypothyroidism. 7. Chronic back pain. PLAN: Continue lactulose enemas q.6 hours. We will monitor the fever and consider antibiotic addition if worsens. Repeat labs in the morning. He is DNR level 1. Continue hemodialysis for supportive measures. If we can get him back to Xifaxan and lactulose orally, we will plan on discharge to correction with outpatient hemodialysis Mondays, Wednesdays, and Fridays. It may have been fluid shifts, especially the paracentesis that increased the hepatic encephalopathy situation. Although, this markedly improved his abdominal distention and probably made him more comfortable. cc: Artem Quiroga MD
[2019-03-01] MEDS: CELEXA PO SCH ×3 (03:35→20:52)
[2019-03-01] MEDS: DUONEB (A & A) INH SCH ×5 (04:00→21:43)
[2019-03-01] MEDS: NON-FORMULARY MED PR SCH (05:14)
[2019-03-01] MEDS ORDERED: NS 2,000 ML MISC PRN (06:30)
[2019-03-01] MEDS ORDERED: HEPARIN IV PRN (06:30)
[2019-03-01] MEDS ORDERED: TIGHT: 0.2 ML/HR FOR DIALYSIS MISC PRN (06:30)
[2019-03-01] MEDS: PRILOSEC PO SCH (06:51)
[2019-03-01] MEDS: SYNTHROID PO SCH (06:51)
[2019-03-01 09:08] LABS: HEMOGLOBIN 7.7 g/dL (14.0-18.0); RBC 2.44 XMIL (4.7-6.1); WBC 6.63 X1000 (4.8-10.8)
[2019-03-01 09:09] LABS: BASO# 0.03 X1000 (0.0-0.2); BASO% 0.5 % (0.0-0.8); EOS# 0.14 X1000 (0.0-0.7); EOS% 2.1 % (0.0-10.0); HEMATOCRIT 22.4 % (42.0-52.0); IMM GRAN# 0.02 X1000 (0.0-0.04); IMM GRAN% 0.3 % (0.0-0.5); LYMPH# 0.57 X1000 (1.2-3.4); LYMPH% 8.6 % (20.5-51.1); MCH 31.6 PG (27-31); MCHC 34.4 g/dL (33-37); MCV 91.8 FL (81-99); MONO# 0.68 X1000 (0.11-0.59); MONO% 10.3 % (1.7-9.3); NEUT# 5.19 X1000 (1.4-6.5); NEUT% 78.2 % (42.2-75.2); PLT 58 X1000 (130-400); RDW 18.1 % (11.5-14.5)
[2019-03-01 09:35] LABS: CALCIUM 9.5 mg/dL (8.8-10.2); CREATININE 3.8 mg/dL (0.7-1.2); POTASSIUM 2.9 mmol/L (3.5-5.1)
[2019-03-01] MEDS: LACTULOSE PO SCH ×3 (09:48→20:52)
[2019-03-01] MEDS ORDERED: ZOFRAN ONE (15:06)
--- NOTE | 2019-03-01 17:27 | NEPHROLOGY PROGRESS NOTE ---
DATE: 03/01/2019 SUBJECTIVE: The patient is resting in bed. He is awake and alert. He was treated for his ammonia level yesterday, and has had a significant improvement. OBJECTIVE: Vital Signs: Temperature 97 degrees, pulse 86, respiratory rate 14, blood pressure 109/65. Intake and output were not documented. General: He is resting in bed. He is awake and alert today. He does not appear in acute distress. HEENT: Normocephalic, atraumatic. Neck: Supple without JVD. Cardiovascular: Regular rate and rhythm. Lungs: Decreased breath sounds, but clear. Abdomen: Distended, soft, nontender. Genitourinary: Kearns catheter. He also has a bowel management system in place with liquid stool. Extremities: 1 to 2+ edema. Integumentary: Skin is pale, warm, and dry. LABORATORY DATA: WBC is 6.6, hemoglobin 7.7. Sodium 132, potassium 2.9, CO2 of 17, creatinine 3.8. His ammonia level yesterday was 186 prior to treatment. ASSESSMENT AND PLAN: 1. Chronic kidney disease, 5D. He normally dialyzes Tuesday, Tuesday, Tuesday. We did not dialyze him yesterday secondary to his change in status. We will dialyze him today on a 3 K bath. 2. Cirrhosis secondary to nonalcoholic steatohepatitis. He had altered mental status yesterday. His ammonia level was elevated. He was treated and has appropriate mental status today. 3. Fluid volume. Continue to monitor and adjust outpatient weight in accordance with paracentesis that the patient will receive. Dictated by KEVIN Murillo for Jose Reaves MD Face to face encounter, data reviewed, discussed with Sam Conway on 03/01/19. I agree with the above assessment and plan of care. cc: MD Artem Morales MD MTDD
--- NOTE | 2019-03-01 19:31 | PROGRESS NOTE ---
DATE: 03/01/2019 SUBJECTIVE: Patient evaluated twice during the day today, and I came by to see him a third time this evening, but he is just en route back from dialysis. The patient was much more alert and oriented x3. He has had some irritability but overall been doing fairly well. His ammonia level came down from the mid 100s to the 50s today after treatment with heavy doses of lactulose enemas yesterday. OBJECTIVE: Vital Signs: Afebrile, pulse 86, respirations 18, blood pressure 107/57. CV: Regular rate and rhythm. Lungs: Clear. Abdomen: Less distended after paracentesis day before yesterday, removing 13 L of ascitic fluid. Extremities: Trace to 1+ edema. Neurologic: Moves all extremities well. Nonfocal. Alert and oriented x3. LAB DATA: Shows white count of 6.6, hemoglobin 7.7, platelets 58. Sodium 132, potassium 2.9, chloride 96. CO2 is 17, BUN 43, creatinine 3.8, ammonia level 53. ASSESSMENT: 1. Hepatic encephalopathy, improved with high doses of lactulose, now having been having been transferred back to the oral route of the lactulose earlier this morning. 2. End-stage renal disease on hemodialysis. Patient having his normal routine schedule of Tuesday, Wednesdays and Fridays. Was not able to be dialyzed on Tuesday, but had it today due to the events of confusion and elevated ammonia occurring Tuesday. 3. 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 4. Esophageal varices with no signs of bleeding. 5. History of hypertension. 6. Hypothyroidism. 7. Chronic back pain. PLAN: Continue lactulose 30 grams p.o. every 6 hours. Will hopefully trim that back to t.i.d. if he does well tomorrow. Continue DNR level 1. Hope is to get him to a long-term care facility with ongoing hemodialysis in the next few days. Follow his mentation in the interim. cc: Artem Quiroga MD
[2019-03-02] MEDS: LACTULOSE PO SCH ×4 (02:24→18:03)
[2019-03-02] MEDS: DUONEB (A & A) INH SCH ×4 (03:15→21:41)
[2019-03-02] MEDS: SYNTHROID PO SCH (06:44)
[2019-03-02] MEDS: PRILOSEC PO SCH (06:44)
[2019-03-02 10:18] LABS: HEMATOCRIT 20.7 % (42.0-52.0); HEMOGLOBIN 6.9 g/dL (14.0-18.0); MCH 31.1 PG (27-31); MCHC 33.3 g/dL (33-37); MCV 93.2 FL (81-99); RBC 2.22 XMIL (4.7-6.1); RDW 18.3 % (11.5-14.5)
[2019-03-02 10:19] LABS: BASO# 0.04 X1000 (0.0-0.2); BASO% 1.3 % (0.0-0.8); EOS# 0.14 X1000 (0.0-0.7); EOS% 4.4 % (0.0-10.0); LYMPH# 0.63 X1000 (1.2-3.4); LYMPH% 19.7 % (20.5-51.1); MONO# 0.36 X1000 (0.11-0.59); MONO% 11.3 % (1.7-9.3); MPV 11.1 FL (7.4-10.4); NEUT# 2.03 X1000 (1.4-6.5); NEUT% 63.3 % (42.2-75.2); PLT 32 X1000 (130-400)
[2019-03-02 10:29] LABS: CALCIUM 8.3 mg/dL (8.8-10.2); CREATININE 2.8 mg/dL (0.7-1.2); POTASSIUM 2.7 mmol/L (3.5-5.1)
--- NOTE | 2019-03-02 11:28 | PROGRESS NOTE ---
DATE: 03/02/2019 SUBJECTIVE: Patient remains in the ICU. He is stable. He is able to tolerate his oral medications well, and is eating some. He had dialysis yesterday. Unable to draw his lab this morning with lost to IV access. He is not requiring anything by IV at this time. He does have a port for dialysis. OBJECTIVE: Vital Signs: Afebrile. Blood pressure marginal but satisfactory. O2 saturation 93 to 99% on room air. CV: RRR. Rare ectopy. Lungs: CTA. Abdomen: Less distention since 13 L drawn off about 3 days ago of ascitic fluid. Extremities: No major edema. Neurologic: Patient alert and oriented x3. No asterixis. LABORATORY: Pending this morning. ASSESSMENT: 1. Hepatic encephalopathy, improved. 2. End-stage renal disease on hemodialysis. 3. Cirrhosis of the liver secondary to FLORES. 4. Esophageal varices with no signs of bleeding. 5. History of hypertension. 6. Hypothyroidism. 7. Chronic back pain. PLAN: Continue lactulose, Synthroid and will continue DNR level 1 status. Will transfer him to the dialysis good area. We will ask physical therapy to see and work with patient on strengthening and possible ambulation if possible. Documentation Billing Clerk continuing to work on long- term healthcare facility that will help in regard to his ongoing hemodialysis. Hopefully, he will be able to be discharged there in about 3 days if he continues on his present improvement. cc: Artem Quiroga MD
[2019-03-02] MEDS: ZOFRAN PO PRN (12:27)
[2019-03-02] MEDS: NORCO-5 PO PRN (14:46)
[2019-03-02] MEDS ORDERED: NS 500 ML IV ONE ×2 (16:03→16:05)
[2019-03-02] MEDS: POTASSIUM CHLORIDE 20 MEQ/SWI 20 MEQ/100 ML IVPB IV SCH ×2 (18:02→20:15)
[2019-03-02] MEDS: CELEXA PO SCH (20:14)
--- NOTE | 2019-03-02 22:38 | NEPHROLOGY CONSULTATION ---
DATE: 03/02/2019 SUBJECTIVE: He is much more alert today. He is lying on his left side and answers my questions. He remains very weak and has abdominal distention. OBJECTIVE: Blood pressure 99/69, heart rate 80, respirations 17, afebrile. Generally a chronically ill man, in no acute distress. Skin is pale and dry. Conjunctivae are pink. Oropharynx is dry. Heart is regular. No rubs. Lungs have equal breath sounds. No crackles or wheezes. Abdomen is soft, nontender. Distended. Bowel sounds are present.Extremities: No edema, clubbing or cyanosis. IMPRESSION AND PLAN: 1. Chronic kidney disease stage 5D. His next planned dialysis treatment will be tomorrow. 2. Hypokalemia, likely related to his diarrhea. We will replenish. 3. Anemia/thrombocytopenia. Secondary to hypersplenism, presumed. He does have a history of esophageal varices. We will type and crossmatch, and transfuse tomorrow. cc: MD Artem Morales MD
[2019-03-03] MEDS: DUONEB (A & A) INH SCH ×4 (03:23→21:20)
[2019-03-03] MEDS: PRILOSEC PO SCH (06:16)
[2019-03-03] MEDS: SYNTHROID PO SCH (06:16)
[2019-03-03 07:00] LABS: HEMATOCRIT 19.2 % (42.0-52.0); HEMOGLOBIN 6.4 g/dL (14.0-18.0); MCH 31.2 PG (27-31); MCHC 33.3 g/dL (33-37); MCV 93.7 FL (81-99); RBC 2.05 XMIL (4.7-6.1); RDW 17.9 % (11.5-14.5); WBC 3.46 X1000 (4.8-10.8)
[2019-03-03 07:06] LABS: MPV 9.7 FL (7.4-10.4)
[2019-03-03 07:42] LABS: CALCIUM 8.6 mg/dL (8.8-10.2); CREATININE 3.5 mg/dL (0.7-1.2); POTASSIUM 3.2 mmol/L (3.5-5.1)
[2019-03-03] MEDS ORDERED: NS 2,000 ML MISC PRN (08:02)
[2019-03-03] MEDS: LACTULOSE PO SCH ×3 (12:54→19:24)
--- NOTE | 2019-03-03 14:00 | PROGRESS NOTE ---
DATE: 03/03/2019 SUBJECTIVE: Patient just completing dialysis. He has been doing better. He has had 2 units PRBCs transfused during dialysis. He has had no confusion. OBJECTIVE: Vital Signs: Afebrile, pulse 80, respirations 16, blood pressure 131/69. CV: RRR with rare ectopy. Lungs: CTA. Abdomen: Protuberant. Some ascites, but not severe at all. Extremities: No edema. Neurologic: Nonfocal. Alert and oriented x3. LABS: White count 3.4, hemoglobin 6.4, that was prior to the 2 units transfused. Platelets are 34. Sodium 131, potassium 3.2, chloride 95, CO2 22. BUN 31, creatinine 3.5, calcium 8.6 ASSESSMENT: 1. Hepatic encephalopathy, stable on lactulose. 2. End-stage renal disease on hemodialysis. 3. 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 4. Esophageal varices with no signs of bleeding. 5. Pancytopenia related to hypersplenism. 6. History of hypertension. 7. Hypothyroidism. 8. Chronic back pain. PLAN: Continue present care. DNR level 1. Synthroid, lactulose. Hemodialysis. Transfusions as required. No signs of active bleeding. The patient to go to long-term care facility with ongoing hemodialysis, 1 bed arranged next week. cc: Artem Quiroga MD
--- NOTE | 2019-03-03 15:34 | NEPHROLOGY PROGRESS NOTE ---
DATE: 03/03/2019 SUBJECTIVE: He is on dialysis currently. States he feels better. He states he did eat. No shortness of breath. OBJECTIVE: Vital Signs: Blood pressure 131/69, heart rate 80, respirations 16, afebrile. General: No acute distress. Skin: Warm and dry. Pale with bruising. Conjunctivae are pink. Neck: Neck veins are not appreciated. Heart: Regular. Lungs: Equal. No crackles. Abdomen: Distended soft bowel sounds present. Extremities: 2+ edema. No clubbing or cyanosis. IMPRESSION: CKD 5 D. Dialysis today using a 3 potassium bath. Goal of 2 L ultrafiltration as his blood pressure allows. Potassium is 3.2 today. Hemoglobin 6.4. 2 units packed red blood cells during dialysis. cc: MD Artem Morales MD
[2019-03-03] MEDS: NORCO-5 PO PRN (19:00)
[2019-03-03] MEDS: ZOFRAN PO PRN (19:00)
[2019-03-03] MEDS: CELEXA PO SCH ×2 (19:53→20:22)
[2019-03-04] MEDS: DUONEB (A & A) INH SCH ×4 (03:26→21:35)
[2019-03-04] MEDS: SYNTHROID PO SCH (06:17)
[2019-03-04] MEDS: PRILOSEC PO SCH (06:17)
[2019-03-04] MEDS: ZOFRAN PO PRN (09:43)
[2019-03-04] MEDS: LACTULOSE PO SCH ×3 (09:53→17:43)
--- NOTE | 2019-03-04 12:34 | PROGRESS NOTE ---
DATE: 03/04/2019 SUBJECTIVE: Patient is stable. He was sleeping but I woke him up. He is talkative and has no complaints except he says he did not sleep well last night. He says he had some nausea that has cleared today. He has visitors with him today. OBJECTIVE: Afebrile, pulse 62, respirations 16, blood pressure 91/54, O2 saturation on room air of 99 to 100 percent. CV: Regular rate and rhythm with frequent ectopy. Lungs: CTA. Abdomen: Some ascites. No major ascites today. Extremities: No major edema. Neurologic: Nonfocal. No asterixis. Alert and oriented x3. Labs: No labs done today. ASSESSMENT: 1. Hepatic encephalopathy, stable on lactulose. 2. End-stage renal disease, on hemodialysis per Dr. Reaves. 3. 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 4. Esophageal varices with no signs of bleeding. 5. Pancytopenia related to hypersplenism. 6. History of hypertension. 7. Hypothyroidism. 8. Chronic back pain. PLAN: Continue Synthroid, lactulose, hemodialysis per Dr. Reaves. workforce services representative working to try to place the patient in a long-term care facility next week. Continue Zofran as needed for nausea or vomiting. Notably, patient received 2 units of PRBCs transfused on 03/02/2019. We will repeat labs in the morning. cc: Artem Quiroga MD
[2019-03-04] MEDS ORDERED: ZYRTEC PO PRN (13:47)
[2019-03-04] MEDS: NORCO-5 PO PRN (18:45)
[2019-03-04] MEDS: CELEXA PO SCH (19:53)
[2019-03-05] MEDS: DUONEB (A & A) INH SCH ×4 (03:35→21:00)
[2019-03-05] MEDS: CELEXA PO SCH ×2 (05:54→20:51)
[2019-03-05] MEDS: PRILOSEC PO SCH ×2 (05:55→06:05)
[2019-03-05] MEDS: SYNTHROID PO SCH ×2 (05:55→06:05)
[2019-03-05 08:17] LABS: CALCIUM 7.8 mg/dL (8.8-10.2); CREATININE 3.6 mg/dL (0.7-1.2); POTASSIUM 3.3 mmol/L (3.5-5.1)
[2019-03-05 08:56] LABS: BASO# 0.05 X1000 (0.0-0.2); BASO% 1.9 % (0.0-0.8); EOS# 0.17 X1000 (0.0-0.7); EOS% 6.3 % (0.0-10.0); HEMOGLOBIN 7.8 g/dL (14.0-18.0); LYMPH# 0.58 X1000 (1.2-3.4); LYMPH% 21.6 % (20.5-51.1); MCH 31.3 PG (27-31); MCHC 33.9 g/dL (33-37); MCV 92.4 FL (81-99); MONO# 0.45 X1000 (0.11-0.59); MONO% 16.7 % (1.7-9.3); MPV 10.1 FL (7.4-10.4); NEUT# 1.44 X1000 (1.4-6.5); NEUT% 53.5 % (42.2-75.2); PLT 38 X1000 (130-400); RBC 2.49 XMIL (4.7-6.1); RDW 17.2 % (11.5-14.5); WBC 2.69 X1000 (4.8-10.8)
[2019-03-05] MEDS: LACTULOSE PO SCH ×3 (09:19→16:41)
--- NOTE | 2019-03-05 14:35 | PROGRESS NOTE ---
DATE: 03/05/2019 SUBJECTIVE: Patient is stable. He is alert, watching TV. Physical therapy has been getting him up in a chair and has ambulated a little. Hemodialysis scheduled again for tomorrow. OBJECTIVE: Afebrile, pulse 73, respirations 14, blood pressure 112/53, O2 saturation 100% on room air. CV: RRR, without ectopy or murmur. Lungs: Clear. Abdomen: Ascites, moderate. Extremities: No edema. Neurologic: Nonfocal. No asterixis. White count 2.69, hemoglobin 7.8 status post 2 units transfusion 2 days ago, platelets stable at 38,000 with no signs of active bleeding. Sodium 129, potassium 3.3, chloride 95, CO2 of 24, BUN 26, creatinine 3.6. ASSESSMENT: 1. Hepatic encephalopathy, stable on chronic lactulose. 2. End-stage renal disease, on hemodialysis per Dr. Reaves. 3. 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 4. Esophageal varices with no signs of active bleeding. 5. Pancytopenia related to hypersplenism. 6. Remote history of hypertension, off antihypertensives. 7. Hypothyroidism. 8. Chronic back pain. PLAN: Continue present care. We are awaiting long-term care facility considerations. His son is working with the [facility] at this point to see if it is feasible for him to continue hemodialysis on an every other day basis with transportation by them. cc: Artem Quiroga MD
--- NOTE | 2019-03-05 15:38 | NEPHROLOGY PROGRESS NOTE ---
DATE: 03/05/2019 SUBJECTIVE: Mr. Sotelo is resting quietly in bed. States that he is feeling well. Would like to go home today. OBJECTIVE: Vital Signs: His most recent vital signs, temperature is 98 degrees, blood pressure 90/57, heart rate 80, respirations 20. He is on room air. Last recorded saturation 99%. He has had 1440 in. He has had 0 recorded out. LABORATORY DATA: His sodium is 129, potassium 3.3, chloride 95, CO2 24, BUN 26, creatinine 3.6, glucose is 93. The patient's anion gap is 10. His calcium is 7.8. He has an ammonia level of 49. White count 2.69, hemoglobin 7.8, hematocrit 23, platelet count 38,000. PHYSICAL EXAMINATION: General: This is a 63-year-old white male. He is currently resting quietly in bed. He appears chronically ill, no acute distress. Skin: Warm and dry. HEENT: Normocephalic, atraumatic. Conjunctiva is pale. He has GENE. Mucous membranes are dry. Neck: Supple. Trachea midline. He has no evidence of JVD. Cardiovascular: Regular rate and rhythm. He has an S4 present. Lungs: Clear to auscultation bilaterally. Equal excursion. He is on room air. Abdomen: Distended, large, nontender. Positive bowel sounds. Genitourinary: Not inspected. Requested patient to keep strict I's and O's. Extremities: Have 1+ lower extremity edema. No clubbing or cyanosis. Neurological: Alert and oriented x3. ASSESSMENT AND PLAN: 1. Chronic kidney disease stage 5D. The patient has routine dialysis treatment for the a.m. No indications for intervention today. 2. Electrolytes and acid-base balance. He has chronic hyponatremia secondary to #1. We will plan an appropriate bath on his discharge. 3. Anemia. Patient was transfused 2 units of packed red blood cells. Hemoglobin has now improved. 4. Abdominal ascites, previous history of paracentesis of 13 L during his hospital stay. We will check with his GI or try to plan an outpatient schedule for paracentesis on a routine basis to assist with patient's medical management of his ascites and fluid volume overload. I would like to thank you for allowing us to follow with this patient. Dictated by KEVIN Garza for Jose Reaves MD Face to face encounter, data reviewed, discussed with Lindsay Mcintyre on 03/06/19. I agree with the above assessment and plan of care. cc: KEVIN Garza MD Stephen W. Harbin, MD [facility]
[2019-03-05] MEDS: NORCO-5 PO PRN (16:34)
[2019-03-05] MEDS: ZOFRAN IV PRN (16:36)
[2019-03-06] MEDS: DUONEB (A & A) INH SCH ×4 (04:00→21:10)
[2019-03-06] MEDS: PRILOSEC PO SCH (06:05)
[2019-03-06] MEDS: SYNTHROID PO SCH (06:05)
[2019-03-06] MEDS ORDERED: NS 2,000 ML MISC PRN (06:24)
[2019-03-06] MEDS ORDERED: TIGHT: 0.2 ML/HR FOR DIALYSIS MISC PRN (06:24)
[2019-03-06] MEDS ORDERED: HEPARIN IV PRN (06:24)
[2019-03-06 06:35] LABS: CALCIUM 8.2 mg/dL (8.8-10.2); CREATININE 4.1 mg/dL (0.7-1.2); PHOSPHORUS 3.6 mg/dL (2.7-4.5); POTASSIUM 3.6 mmol/L (3.5-5.1)
--- NOTE | 2019-03-06 11:20 | PROGRESS NOTE ---
DATE: 03/06/2019 SUBJECTIVE: Patient lying flat in bed, having no excess work of breathing. Has no complaints. He says he was able to take a few steps [id number] yesterday with physical therapy help by his report. OBJECTIVE: Vital Signs: Afebrile. Blood pressure marginal, but acceptable. O2 saturation 97% on room air. CV: RRR without ectopy or murmur. Lungs: CTA. Abdomen: Moderate to severe ascites may be slightly increased from yesterday. Extremities: No calf tenderness, cords or edema. Neurologic: Cranial nerves are intact. He is alert and oriented x3. No confusion. LABS: Today shows sodium 127, potassium 3.6, chloride 91, CO2 21, BUN 29, creatinine 4.1, calcium 8.2, phosphorus 3.6, albumin 2.0. ASSESSMENT: 1. Hepatic encephalopathy, stable on lactulose. 2. End-stage renal disease on hemodialysis. 3. 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 4. Esophageal varices, stable with no signs of active bleeding. 5. Pancytopenia secondary to hypersplenism. 6. Hypothyroidism. 7. Chronic back pain. 8. Hyponatremia. PLAN: Anemia. Sodium and potassium are all being addressed per Dr. Reaves. Continue lactulose. His son is working with [facility] regarding possible placement there, and the social workers here at the hospital are working with him in that regard. Medically, he will be stable for discharge to that facility if things are worked out. cc: Artem Quiroga MD
[2019-03-06] MEDS: LACTULOSE PO SCH ×4 (11:40→16:54)
[2019-03-06] MEDS: NORCO-5 PO PRN ×2 (14:21→22:27)
--- NOTE | 2019-03-06 15:53 | NEPHROLOGY PROGRESS NOTE ---
DATE: 03/06/2019 DATE AND TIME OF EXAM: 03/06/2019 at 0820 hours. SUBJECTIVE: Mr. Sotelo is resting quietly in bed. States that his abdomen is starting to swell with some discomfort. He denies any chest pain. No increased work of breathing. OBJECTIVE: Vital Signs: Temperature 98.4 degrees, blood pressure 87/47, heart rate 83, respirations 16. He is on room air. Last recorded saturation 97%; he has had 580 in, 1900 out. Void with dialysis. General: On physical examination, this is a 63-year-old elderly male. He is currently resting in bed. He appears older than stated age. He is in no acute distress. Skin: Warm and dry. HEENT: Normocephalic, atraumatic. Conjunctivae pale. He has GENE. Mucous membranes are dry. Neck: Supple. Trachea midline. No evidence of JVD. Cardiovascular: Regular rate and rhythm. S4 is present. Lungs: Clear to auscultation bilaterally. Equal excursion. He is currently on room air. Abdomen: Distended, tight. Positive bowel sounds, hypoactive. Genitourinary: Not inspected. Minimal void with dialysis assist. Extremities: Have 1+ lower extremity edema. No clubbing or cyanosis. Neurological: Alert and oriented x3. LABORATORY DATA: Sodium 127, potassium 3.6, chloride 91, CO2 21. BUN 29, creatinine 4.1, glucose 95. His anion gap is 15, calcium 8.2, phosphorus 3.6, albumin is 2. Hemoglobin up to 7.8 after 2 units of packed red blood cells. ASSESSMENT AND PLAN: 1. Chronic kidney disease stage [address] the patient on hemodialysis today. He is to be placed on a 3 potassium bath. We will dialyze him for 3-1/2 hours. We will attempt to pull patient to his outpatient dry weight. 2. Electrolytes and acid-base balance with correction on dialysis. 3. Anemia. This is low, but stable, improved after 2 units of packed red blood cells. 4. Abdominal ascites. Patient is complaining of abdominal distention. We will defer to the primary care team for next possible paracentesis inpatient. After this and his discharge, then we will try to attempt to assist with his paracentesis on an outpatient basis every other week. I would like to thank you for allowing us to follow with this patient. Dictated by KEVIN Garza for Jose Reaves MD Face to face encounter, data reviewed, discussed with Lindsay Mcintyre on 03/06/19. I agree with the above assessment and plan of care. cc: KEVIN Garza MD Stephen W. Harbin, MD [facility]
[2019-03-06] MEDS: CELEXA PO SCH (21:05)
[2019-03-07] MEDS: DUONEB (A & A) INH SCH ×4 (03:32→21:00)
[2019-03-07] MEDS: PRILOSEC PO SCH (06:11)
[2019-03-07] MEDS: SYNTHROID PO SCH (06:11)
[2019-03-07] MEDS ORDERED: NS 2,000 ML MISC PRN (06:21)
[2019-03-07] MEDS ORDERED: HEPARIN IV PRN (06:21)
[2019-03-07] MEDS ORDERED: TIGHT: 0.2 ML/HR FOR DIALYSIS MISC PRN (06:21)
[2019-03-07] MEDS: LACTULOSE PO SCH ×3 (08:34→19:47)
--- NOTE | 2019-03-07 09:04 | PROGRESS NOTE ---
DATE: 03/07/2019 SUBJECTIVE: The patient has had increasing ascites at the abdomen. He is not in severe discomfort, but he is starting to get some abdominal discomfort. He has had no shortness of breath. He is laying flat. He is conversant with a relative who is bedside today. OBJECTIVE: Vital Signs: Afebrile. Blood pressure is marginal, but satisfactory. CV: RRR without murmur. Lungs: CTA. Abdomen: Very prominent ascites. No pinpoint tenderness. Extremities: No calf tenderness, cords or edema. Neurologic: Alert and oriented x3. No confusion. No asterixis. LAB DATA: No lab data today. ASSESSMENT: 1. Hepatic encephalopathy, stable on lactulose with 3 bowel movements yesterday. 2. End-stage renal disease on hemodialysis. 3. Cirrhosis of the liver, secondary to nonalcoholic steatohepatitis. 4. Prominent ascites. 5. Esophageal varices. No signs of bleeding currently. 6. Hypothyroidism. 7. Pancytopenia with prominent anemia secondary to hypersplenism. 8. Hyponatremia. PLAN: The patient has bed confirmed out at [facility]. We are going to get ultrasound-guided paracentesis per radiologist today with 60 g of IV albumin given afterward, and will monitor him for signs of hepatic encephalopathy, worsening after the procedure. As he did that last time, I am concerned he may have some setback in that regard. So, will increase his lactulose today up to q.i.d. and monitor his situation and likely, if he does well without complication, we will discharge him to [facility] tomorrow if he does well or possibly late today, but will likely be tomorrow morning. cc: Artem Quiroga MD
--- NOTE | 2019-03-07 10:13 | Diag Imaging Result Doc PS360 ---
EXAM: US ABD PARACENTESIS W S/I HISTORY: ascites TECHNIQUE: Ultrasound-guided paracentesis COMPARISON: None. FINDINGS: Prior to the procedure I discussed the risk and benefits with the patient. Primary risks include bleeding, infection, bowel injury, and liver injury. Questions were answered. Consent was given. The permit was signed. Ultrasound was used to localize the largest fluid collection in the right abdomen. This area was cleaned and draped in the normal fashion. Lidocaine was used as a local anesthetic. Needle and catheter were advanced into the fluid collection on the first attempt without difficulty. The needle was withdrawn. The catheter was hooked to suction. Approximately 10.9 L of fluid were withdrawn without difficulty. The catheter was then withdrawn. No immediate postprocedural complications. IMPRESSION: Successful ultrasound-guided paracentesis. Electronically signed by David Daley 03/07/2019 10:11 AM
[2019-03-07] MEDS ORDERED: ALBUMIN 25% IV ONE (10:41)
[2019-03-07 13:04] LABS: HEPATITIS PROFILE ACUTE SEE COMMENTS
--- NOTE | 2019-03-07 14:57 | NEPHROLOGY PROGRESS NOTE ---
DATE: 03/07/2019 TIME SEEN: 0750 SUBJECTIVE: Mr. Sotelo is resting quietly in bed. Head of the bed is slightly elevated. He denies any pain or increased work of breathing, though, he does have some abdominal discomfort. PHYSICAL EXAMINATION: Vital signs: 98.7, blood pressure 90/45, heart rate 92, respirations 16. He is on room air. Last recorded saturation 95%. He has had 580 in. He has had 1900 out. LABORATORY: Previous hemoglobin 7.8. Sodium 127, potassium 3.6, chloride 91, CO2 21, BUN 29, creatinine 4.1, glucose is 95. His anion gap is 15. His calcium is 8.2, phosphorus 3.6, albumin is 2. PHYSICAL EXAMINATION: General: This is a 63-year-old white male currently resting in bed. Does complain of some abdominal distention. HEENT: Mucous membranes are dry. Neck: Supple. Trachea midline. No evidence of JVD. Cardiovascular: He is regular rate and rhythm without gallop. Lungs: His lungs are clear to auscultation, bilateral equal excursion on room air. Abdomen: Distended, hypo bowel sounds present. Genitourinary: Not inspected. Minimal void with dialysis assist. Extremities: No edema, no clubbing or cyanosis. Neurological: He is alert and oriented x3. ASSESSMENT AND PLAN: 1. Chronic kidney disease stage 5D. The patient is due for his routine dialysis treatment today. We will place him on a 2K bath. We will attempt to pull 3-4 L of ultrafiltration. 2. Electrolytes and acid-base balance with correction on dialysis. 3. Anemia. This remains low but stable. 4. Abdominal ascites. We will schedule patient for a paracentesis today of approximately 5 L and then will attempt to plan for outpatient paracentesis on an every other week basis if tolerated. I would like to thank you for allowing us to follow with this patient. Dictated by KEVIN Garza for Jose Reaves MD Face to face encounter, data reviewed, discussed with Lindsay Mcintyre on 03/07/19. I agree with the above assessment and plan of care. cc: KEVIN Garza MD Stephen W. Harbin, MD [facility]
[2019-03-07] MEDS ORDERED: ALBUMIN 25% IV PRN (14:58)
[2019-03-07] MEDS: ZOFRAN IV PRN (19:46)
[2019-03-07] MEDS: NORCO-5 PO PRN (19:46)
[2019-03-07] MEDS: CELEXA PO SCH ×2 (19:48→21:53)
[2019-03-08] MEDS: LACTULOSE PO SCH ×3 (01:54→13:49)
[2019-03-08] MEDS: DUONEB (A & A) INH SCH ×2 (03:59→07:59)
[2019-03-08] MEDS: PRILOSEC PO SCH ×2 (05:38→06:27)
[2019-03-08] MEDS: SYNTHROID PO SCH ×2 (05:38→06:28)
[2019-03-08 08:39] VITALS: BP 111/47
--- NOTE | 2019-03-08 09:25 | DISCHARGE SUMMARY ---
ADMISSION DATE: 02/22/2019 DISCHARGE DATE: 03/08/2019 DIAGNOSES: 1. Hepatic encephalopathy, stabilized, with 3 bowel movements per day on lactulose 30 mL t.i.d. 2. 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 Bonilla. He was found not to be a candidate for TIPS procedure or transplantation due to some possible coronary artery disease. 3. End-stage renal disease on hemodialysis Tuesday, Wednesdays, and Fridays per Dr. Reaves. 4. Prominent ascites which reaccumulates and requires ultrasound-guided paracentesis every 14 days at outpatient services under the direction of Dr. Bonilla. 5. Esophageal varices with no active bleeding. 6. Hypothyroidism. 7. Pancytopenia with prominent anemia secondary to hypersplenism. 8. Hyponatremia. PROCEDURES: 1. Chest x-ray done 02/22/2019 revealing some atelectasis, overall improved from prior chest x- rays. 2. CT scan of the head without contrast. No acute abnormality. 3. Shoulder x-ray done on the right done 02/22/2019. No evidence of acute bony disease, but OA changes at the AC joint. 4. Ultrasound-guided paracentesis with [address] Cooper, radiologist, 02/27/2019. 5. Head CT done 02/28/2019. Minimal chronic microvascular changes. No evidence of acute intracranial disease. 6. Repeat ultrasound-guided paracentesis per Dr. Daley with 10.9 L of fluid withdrawn. CONSULTANTS: Dr. Jose Reaves, Nephrology. REASON FOR ADMISSION AND HOSPITAL COURSE: The patient is a 63-year-old white male followed in my medical practice and also followed by Dr. Bonilla and Dr. Reaves. The patient came in with mental status change on 02/22/2019 and his ammonia level was elevated. He has a history of chronic hepatic encephalopathy with recurrent episodes of that and he was admitted after CT scan of the head was negative and the patient had a chest x-ray which was negative except for AC joint OA. The patient also had blood cultures x2 drawn, which 1 of 2 came back positive for coag-negative staph, whereas the other blood culture was negative at that time and it was thought to be related to a contaminant. Urine culture showed no pathogenic growth, so patient was placed back on lactulose and Xifaxan and his mentation improved markedly over the next [address] Reaves was consulted and continued with his hemodialysis care through the hospitalization. Hospice was consulted as his son was interested in that, and the patient was kept at DNR level 1 status through the hospitalization at his request and per his son's request. The patient did not qualify for inpatient hospice care. I had spoken with Dr. Bonilla on the patient's admission and he did not recommend paracentesis at that point. The patient was not particularly uncomfortable, although he had a lot of ascites and he was lying flat to breathe. The patient improved with the lactulose and Xifaxan. He received transfusion of 4 units PRBCs during the hospitalization when he was receiving dialysis. Oil Refinery Operator worked with the patient's son regarding placement issues and the patient was deemed to be a candidate for long-term care facility at [facility] with ongoing hemodialysis with transportation via ambulance on Mondays, Wednesdays, and Fridays under the direction of Dr. Reaves. The patient did reaccumulate some ascites on 02/27/2019 and had 13 L drawn off by Dr. Cooper, radiologist, with ultrasound-guided paracentesis. He also received 60 g of albumin 25% IV after that paracentesis and that was repeated on 03/07/2019 with this paracentesis drawing off 10.9 L of fluid per Dr. Daley. He will need ongoing paracentesis via ultrasound guidance at 14 day intervals as I had spoken with Dr. Bonilla and he recommends that. That will be done at outpatient services and he will need transportation to the outpatient services in that regard, and Dr. Bonilla will need to follow patient up in 1 week in his office in order to oversee that procedure. The patient had a repeat CT scan of the head on 02/28/2019. He had a recurrence and relapse of the ammonia level increased up to [address] and the confusion and CT then was negative. He seemed to have no fluid shifts with this paracentesis and if he does well overnight, then we will discharge him on the morning of 03/08/2019 to the long-term care facility. DISCHARGE LABORATORY DATA: White count of 2.69, hemoglobin 7.8, hematocrit 23, platelets 38,000 and stable. Sodium 127, potassium 3.6, chloride 91, CO2 21, BUN 29, creatinine 4.1, calcium 8.2, phosphorus 3.6. Ammonia levels are in the 20 to 50 range. Albumin 2.0. The patient was eating well and will maintain him on a 2 g sodium diet and he will be up with meals, and physical therapy worked with the patient during the hospitalization and that will be continued at the long-term healthcare facility. DISCHARGE MEDICATIONS: [place] 5 mg p.o. q.6 hours p.r.n. pain, Zyrtec 10 mg p.o. daily p.r.n. itching, Celexa 20 mg p.o. at bedtime, lactulose 30 mL p.o. t.i.d., Synthroid 150 mcg p.o. daily, omeprazole 20 mg p.o. daily, Zofran 4 mg p.o. q.6 hours p.r.n. nausea or vomiting. Blood work will be pursued and obtained through Dr. Reaves at the dialysis clinic at [facility] on Tuesday, Wednesdays, and Fridays with his dialysis treatments. cc: Artem Quiroga MD
--- NOTE | 2019-03-08 21:51 | NEPHROLOGY PROGRESS NOTE ---
DATE: 03/08/2019 SUBJECTIVE: Mr. Sotelo is resting quietly in bed. He is on his side. Head of the bed is flat. States that he is resting quietly if he takes pressure off his abdomen. MOST RECENT VITAL SIGNS: Last temperature 98.2, blood pressure 79/46, heart rate 79, respirations 14. He is currently on room air. Last recorded saturation is 96%. He has had 1440 in. He has had 0 removed on dialysis yesterday, 1900 the day before. LABORATORY DATA: Previous potassium of 3.6 with a previous sodium of 127. Previous hemoglobin 7.8. PHYSICAL EXAMINATION: General: This is a 63-year-old white male resting quietly in bed. He appears older than his stated age. He is in no acute distress. Skin: Warm and dry. HEENT: Normocephalic, atraumatic. Conjunctivae are pale. GENE. Mucous membranes are dry. Neck: Supple. Trachea midline. No evidence of JVD in the flat position. Cardiovascular: Regular rate and rhythm. He is without gallop. Lungs: Clear to auscultation bilaterally. Equal excursion with poor inspiratory effort. Remains on room air. Abdomen: Remains distended. Positive bowel sounds. Genitourinary: Not inspected. Minimal void with dialysis assist. Extremities: Have no edema. No clubbing or cyanosis. Neurological: Alert and oriented x3. ASSESSMENT AND PLAN: 1. Chronic kidney disease stage 5D. The patient is due for routine dialysis treatment in the morning. If patient is discharged, he has been instructed to go to his outpatient dialysis treatment. 2. Electrolytes, acid-base balance and anemia. These remain low but stable. 3. Abdominal ascites. Patient had a paracentesis performed yesterday of 11 L. We have discussed outpatient paracentesis on an [id number] basis. We will attempt to set this up upon discharge. I would like to thank you for allowing us to follow with this patient. Dictated by KEVIN Garza for Jose Reaves MD [id number] encounter, data reviewed, discussed with Swathi Mcintyre on 03/08/19. I agree with the above assessment and plan of care. cc: KEVIN Garza MD Stephen W. Harbin, MD MTDD
== END 2019-03-08 14:09 | DRG 441 ==
LOC: SUPCPDRO → ED 12:47 → 1N 16:54 → ICU 02-28 09:59 → 1N 03-02 12:57
PROVIDERS: ADMIT Family Medicine; ATTEND Family Medicine

== ENCOUNTER 2019-03-08 20:37 | Inpatient (IN) ==
--- NOTE | 2019-03-08 21:03 | EKG Report ---
Test Performed on : 03/08/2019 8:59:08 PM Test Reason : SEPSIS Blood Pressure : / mmHG Vent. Rate : 089 BPM Atrial Rate : 089 BPM P-R Int : 168 ms QRS Dur : 102 ms QT Int : 448 ms P-R-T Axes : 141 -29 139 degrees QTc Int : 545 ms Unusual P axis, possible ectopic atrial rhythm. with undetermined rhythm irregularity. Nonspecific T wave abnormality Prolonged QT Abnormal ECG When compared with ECG of 22-FEB-2019 14:26, (Unconfirmed) Previous ECG has undetermined rhythm, needs review Unconfirmed Result
[2019-03-08] MEDS ORDERED: NS 1,000 ML IV ONE ×2 (21:36→23:01)
--- NOTE | 2019-03-08 21:55 | Diag Imaging Result Doc PS360 ---
EXAM: CHEST-1 VIEW INDICATION: fever TECHNIQUE: One view COMPARISON: 02/22/2019 FINDINGS: The right Vas-Cath is stable. Inspiration is suboptimal similar to the previous study. There is mild platelike atelectasis at the left lung base. Low lung volumes are causing central vascular crowding. There is no discrete pleural fluid collection or pneumothorax. The cardiomediastinal silhouette and central vasculature are grossly unremarkable. IMPRESSION: Low lung volumes and suggestion of mild atelectasis left lung base. Electronically signed by Jama Cooper 03/08/2019 9:52 PM
[2019-03-08 21:59] LABS: BASO# 0.01 X1000 (0.0-0.2); BASO% 0.8 % (0.0-0.8); HEMATOCRIT 20.8 % (42.0-52.0); HEMOGLOBIN 6.8 g/dL (14.0-18.0); LYMPH# 0.21 X1000 (1.2-3.4); LYMPH% 17.1 % (20.5-51.1); MCH 31.2 PG (27-31); MCHC 32.7 g/dL (33-37); MCV 95.4 FL (81-99); MONO# 0.15 X1000 (0.11-0.59); MONO% 12.2 % (1.7-9.3); MPV 9.4 FL (7.4-10.4); NEUT# 0.86 X1000 (1.4-6.5); NEUT% 69.9 % (42.2-75.2); RBC 2.18 XMIL (4.7-6.1); RDW 18.7 % (11.5-14.5); WBC 1.23 X1000 (4.8-10.8)
[2019-03-08 22:05] LABS: PLT 29 X1000 (130-400)
[2019-03-08 22:18] LABS: BANDS 2 % (0-1); LYMPHS 18 % (21-51); MONO 8 % (1-9); SEGS 72 % (42-75)
[2019-03-08] MEDS ORDERED: XYLOCAINE 2% JELLY UROJECT TOP ONE (22:26)
[2019-03-08 22:33] LABS: ALB/GLOB RATIO 1.3; ALBUMIN 2.5 g/dL (3.5-5.0); CALCIUM 8.7 mg/dL (8.8-10.2); CREATININE 3.3 mg/dL (0.7-1.2); POTASSIUM 4.6 mmol/L (3.5-5.1); TOTAL BILIRUBIN 3.33 mg/dL (0.20-1.00); TOTAL PROTEIN 4.5 g/dL (6.3-8.3)
[2019-03-08 22:36] LABS: INR 2.18; PROTIME 24.8 Seconds (11.0-16.0)
[2019-03-08 22:37] LABS: PTT 49.5 Seconds (22.3-41.8)
[2019-03-08] MEDS ORDERED: VANCOMYCIN 1 GM/NS 1 GM/250 ML IVPB IV ONE (23:00)
[2019-03-08] MEDS ORDERED: ZOSYN 3.375 GM in NS 50 ML IV ONE (23:00)
[2019-03-08 23:42] LABS: URINE SOURCE CLEAN CATCH
[2019-03-08 23:51] LABS: UR EPITHELIAL CELLS <10 /HPF (<10); URINE BACTERIA NEGATIVE /HPF; URINE RBC TNTC /HPF (<10); URINE WBC <10 /HPF (<10)
[2019-03-08 23:52] LABS: BILIRUBIN URINE SMALL (NEGATIVE); BLOOD URINE MODERATE (NEGATIVE); COLOR YELLOW; GLUCOSE URINE NEGATIVE (NEGATIVE); KETONE URINE TRACE mg/dL (NEGATIVE); LEUKOCYTES URINE SMALL (NEGATIVE); NITRITE URINE NEGATIVE (NEGATIVE); PROTEIN URINE TRACE mg/dL (NEGATIVE); SP GRAVITY URINE 1.022; TURBIDITY URINE HAZY (CLEAR); UROBILINOGEN URINE 2 mg/dL (NORMAL)
[2019-03-09 00:10] LABS: URINE YEAST NONE SEEN
[2019-03-09 00:11] LABS: URINE CASTS GRANULAR PRESENT; URINE CRYSTALS NONE SEEN; URINE SMALL ROUND CELLS NONE SEEN
--- NOTE | 2019-03-09 00:28 | PROVIDER DOCUMENTATION ---
This chart was entered by Marquita Cooper Scribe, acting as scribe for Travon Neff MD. HPI-General Adult - General Chief Complaint: SEPSIS ALERT - D Stated Complaint: RETURN/RECHECK Time Seen by Provider: 03/08/19 21:31 Source: RN/ Allergies/Adverse Reactions: Patient Allergies Allergy/AdvReac Type Severity Reaction Status Date / Time No Known Allergies Allergy Verified 04/25/18 16:14 Home Medications: Home Medication List Medication Instructions Recorded Confirmed Last Taken Type Citalopram [Celexa] 20 mg PO QHS 04/25/18 02/22/19 02/13/19 History Hydrocodone/Acetaminophen [[place] 1 ea PO Q4-6H PRN PRN 02/14/19 02/22/19 Unknown History 5-325 Tablet] Omeprazole [Prilosec] 20 mg PO DAILY@0700 02/14/19 02/22/19 02/13/19 History Ondansetron HCl [Zofran] 4 mg PO PRN PRN 02/14/19 02/22/19 02/06/19 History Lactulose 30 ml PO TID 02/22/19 02/22/19 Unknown History Cetirizine [Zyrtec] 10 mg PO DAILY PRN PRN tab 03/08/19 Unknown Rx Hydrocodone/APAP 5 mg/325 mg 1 ea PO Q6H PRN PRN #25 tab 03/08/19 Unknown Rx [[place]-5] Lactulose 30 ml PO TID udc 03/08/19 Unknown Rx Levothyroxine [Synthroid] 150 microgm PO DAILY@0700 tab 03/08/19 Unknown Rx Ondansetron [Zofran] 4 mg PO Q6H PRN PRN 03/08/19 Unknown Rx - History of Present Illness -Gen Adult Nature of Presenting Problems: 63 yowm c/o pt was d/c from hospital today to [facility]. pt became hypotensive, ams, tachycardic and febrile and [facility] called ems to bring pt to er. pt is on anticoagulants, wouldn't specify which one. pt is a new dialysis pt, is supposed to dialyze tomorrow. pt has hx of dementia, hpi limited per pt condition Review of Systems - Adult - REVIEW OF SYSTEMS - ADULT ROS:: limited per condition Constitutional: reports: see HPI, fever. denies: chills, fatique, night sweats Eyes: reports: no symptoms reported Ears, Nose, Mouth & Throat: reports: no symptoms reported Cardiovascular: reports: see HPI, irregular heart rate (tachy), other (hypotensive). denies: chest pain, edema, palpitations Respiratory: reports: no symptoms reported Gastrointestinal: reports: no symptoms reported. denies: diarrhea, nausea, vomiting Genitourinary: reports: no symptoms reported Musculoskeletal: reports: no symptoms reported Integumentary: reports: no symptoms reported Neurological: reports: no symptoms reported Psychiatric: reports: no symptoms reported Endocrine: reports: no symptoms reported Hematologic/Lymphatic: reports: no symptoms reported Allergic/Immunologic: reports: no symptoms reported All Other Systems: Reviewed and Negative Past History - Adult - PAST MEDICAL HISTORY-ADULT Review of Records: reports: Old Records Reviewed, Nursing Assessment Review, Medications Reviewed, Social history reviewed & non-contributory. Major Childhood Illnesses: reports: denies history Cardiovascular: reports: HTN Respiratory: reports: denies history Gastrointestinal: reports: other (liver cirrhosis) Obstetrical/Gynecological: reports: denies history Genitourinary: reports: dialysis (mwf), ESRD, kidney disease Musculoskeletal: reports: denies history Neurological: reports: dementia Endocrine/Immune: reports: denies history Other Conditions: reports: denies history - PRIOR SURGERIES/PROCEDURES Surgical/Procedure History: reports: other (spleenectomy) - IMMUNIZATION STATUS Childhood Immunizations: See Nurse Assessment Flu Vaccine: See Nurse Assessment - FAMILY HISTORY Family History: reviewed, not pertinent - SOCIAL HISTORY Smoking: non-smoker Substance Use: none/never Physical Exam-General - PHYSICAL EXAM-ADULT Initial Vital Signs Reviewed: Yes - CONSTITUTIONAL General Appearance: alert, mild distress, slow to respond, obtunded. negative: anxious, combative - EYES Eyes: PERRL/EOMI, pink conjunctivae - HEAD, EARS, NOSE, MOUTH & THROAT HENMT: normocephalic/atraumatic, moist mucous membranes, normal ENT inspection - NECK Neck: non-tender, full range of motion, supple, normal inspection - RESPIRATORY Respiratory: chest non-tender, lungs clear, normal breath sounds - CARDIOVASCULAR Cardiovascular: normal peripheral pulses, regular rate, rhythm, no edema, no gallop, no JVD, no murmur, other (hypotensive, 93/57 2108). negative: JVD, bradycardia, tachycardia - CHEST (BREASTS) Chest/Breast: other (port a cath, rt side). negative: no tenderness, nipple discharge, mass/lump noted - GASTROINTESTINAL (ABDOMEN) Abdominal Exam: normal bowel sounds, non tender, soft - LYMPHATIC Lymphatic: no adenopathy - MUSCULOSKELETAL Back Exam: normal inspection, no CVA tenderness, no vertebral tenderness Extremity: normal range of motion, non-tender, normal inspection Peripheral Pulses: radial (R): 2+, radial (L): 2+ - SKIN Integumentary: normal color, normal turgor, warm/dry - NEUROLOGIC Neurologic: grossly normal, no motor/sensory deficits - PSYCHIATRIC Psych/Mental Status: normal mood/affect Progress - PLAN OF CARE/RESULTS Progress/Plan/Lab Results: Vital Signs - 8 hr 03/08/19 21:08 Temperature 99.2 F Pulse Rate 89 Respiratory Rate 20 Blood Pressure 93/57 O2 Sat by Pulse Oximetry 97 Orders Category Date Time Status Cardiac Monitoring DIRECTED Care 03/08/19 21:31 Active IV Insertion ORDERED Care 03/08/19 21:31 Active Notify MD of + Sepsis Screen NOW Care 03/08/19 21:31 Active Notify Physician As Ordered Care 03/08/19 21:31 Active CHEST-1 VIEW [RAD] Stat Exams 03/08/19 21:31 Ordered BLOOD CULTURE [BLDCUL] Stat Lab 03/08/19 21:31 Uncollected CBC WITH DIFF [HEME] Stat Lab 03/08/19 21:31 Uncollected CK PROFILE [SP CHEM] Stat Lab 03/08/19 21:31 Uncollected COMPREHENSIVE METABOLIC PANEL [CHEM] Stat Lab 03/08/19 21:31 Uncollected LACTATE, PLASMA [CHEM] Lab 03/08/19 21:45 Uncollected LACTATE, PLASMA [CHEM] Lab 03/09/19 00:45 Uncollected LACTATE, PLASMA [CHEM] Lab 03/09/19 03:45 Uncollected PROTIME WITH INR [COAG] Stat Lab 03/08/19 21:31 Uncollected PTT [COAG] Stat Lab 03/08/19 21:31 Uncollected TROPONIN T Stat Lab 03/08/19 21:31 Uncollected URINALYSIS W/POSS RFLX CULT [URINALYSIS] Stat Lab 03/08/19 21:31 Uncollected EKG [EKG] Stat Ther 03/08/19 20:52 Draft Result Diagrams: 03/08/19 21:42 03/08/19 21:42 - EKG 1 Time of EKG reading by physician:: 20:59 EKG Read and Signed by:: Travon Neff EKG Interpretation (*Must complete 3 of following elements*): Abnormal Rate: 89 Rhythm: Unusuql P axis, possible ectopic atrial rhythm w/undetermined rhythm irreg QRS: other (prolonged QT) ST Wave: non-specific ST changes (nonspecifc t wave abnormality) - XRAY 1 XRAY Study: Chest Impression: Abnormal, See EMR Report (EXAM: CHEST-1 VIEW INDICATION: fever TECHNIQUE: One view COMPARISON: 02/22/2019 FINDINGS: The right Vas-Cath is stable. Inspiration is suboptimal similar to the previous study. There is mild platelike atelectasis at the left lung base. Low lung volumes are causing crystal tral vascular crowding. There is no discrete pleural fluid collection or pneumothorax. The cardiomediastinal silhouette and central vasculature are grossly unremarkable. IMPRESSION: Low lung volumes and suggestion of mild atelectasis left lung base. Electronically signed by Jama Cooper 03/08/2019 9:52 PM) - CONSULTS/PCP/HOSPITALIST Notification #1 *Consult/PCP/Hospitalist*: Dr. dumas Time Discussed: 00:25 Consult Disposition: Will see in ED, Admit Departure - Departure Date of Disposition Decision: 03/09/19 Time of Disposition Decision: 00:27 DIAGNOSIS: Pancytopenia, Lactic acid acidosis Altered mental status Qualifiers: Altered mental status type: unspecified Qualified Code(s): R41.82 - Altered mental status, unspecified Disposition: ADMITTED INPATIENT 09 Certified Medical Emergency: Emergent Condition: Critical Referrals and Follow-Ups: Artem Quiroga MD [Primary Care Provider] - - Critical Care Note This patient required my direct & personal management of CC.: Yes Total Time (mins): 36 Critical Care Statement: This patient required my direct personal management to treat or rule out processes, the absence of which, could potentiallly result in sudden, clinically significant life or limb threatening deterioration. Attestation - Physician/ HENNA Attestation Patient care was provided by Advanced Practice Provider:: No The physician spent face to face time with patient:: Yes Advanced Practice Provider documentation review:: Supervising physician onsite and consulted in the evaluation and care of this patient. The physician did have a face to face encounter with the patient. This chart was documented by the indicated scribe, (Marquita Cooper, [place]) and accurately reflects the services I performed and decisions made by me, Travon Neff MD, as attested by the provider's signature.
--- NOTE | 2019-03-09 04:12 | HISTORY AND PHYSICAL ---
PRIMARY CARE PHYSICIAN: Dr. Quiroga. CHIEF COMPLAINT: Hypotension, confusion. HISTORY OF PRESENTING ILLNESS: A 63-year-old male with a history of end-stage liver disease, FLORES, cirrhosis, end-stage kidney disease, who was just discharged from the hospital earlier today to [facility]. While patient was there, staff found that he was hypotensive and somewhat more confused. He was brought back to the emergency department and evaluated and was found to have elevated lactic acid level. Initially, it was thought that he was septic due to hypotension. However, it seems that his symptoms are chronic and at time of my examination the patient was alert and answering questions. However, he was still confused, did not know why he was at the hospital. The patient, however, had denied any headache, fever, chills, chest pain, shortness of breath. PAST MEDICAL HISTORY: Includes cirrhosis, FLORES, pancytopenia secondary to hypersplenism, esophageal varices, end-stage renal disease, chronic anemia, hepatic renal syndrome, hepatic encephalopathy. PAST SURGICAL HISTORY: Back surgery, right inguinal hernia repair, umbilical hernia surgery. ALLERGIES: No known drug allergies. CURRENT MEDICATIONS: Celexa 20 mg p.o. at bedtime, [place] 5/325 one p.o. q.6 hours, lactulose 30 mL p.o. t.i.d., levothyroxine 150 mcg p.o. daily, omeprazole 20 mg p.o. daily. SOCIAL HISTORY: No history of smoking, alcohol or illicit drug use. FAMILY HISTORY: No history of coronary artery disease. REVIEW OF SYSTEMS: Fourteen point review of system as listed in HPI. Other systems negative. PHYSICAL EXAMINATION: GENERAL: The patient is resting comfortably but still confused. VITAL SIGNS: Temperature 98.8 degrees, pulse 80, respirations 16, blood pressure 95/51. HEENT: Atraumatic, normocephalic. PERRLA. NECK: No masses. CHEST: Clear to auscultation. CARDIOVASCULAR: Regular rate and rhythm. ABDOMEN: Soft. Positive bowel sounds. EXTREMITIES: No edema. NEUROLOGIC: He is awake, alert, oriented x1. GENITOURINARY: No bladder distention. SKIN: Warm. LABORATORIES AND STUDIES: WBCs 1.23, hemoglobin 6.8, hematocrit 20.8, platelets 29,000. Sodium 132, potassium 4.6, chloride 95, CO2 is 19, BUN is 31, creatinine is 3.3, glucose 99, plasma lactate is 7.1. Chest x-ray shows mild atelectasis. ASSESSMENT: This is a 63-year-old male with a history of end-stage liver disease, nonalcoholic steatohepatitis, cirrhosis, end-stage renal disease on renal dialysis, pancytopenia secondary to hypersplenism, who was brought to the emergency department after he was discharged earlier in the morning due [facility]. As per staff there, he was also getting more confused. He was evaluated in the emergency department and he had an elevated plasma lactate level and due to suspicion of possible sepsis he will be admitted for further management. 1. Altered mental status, multifactorial. 2. Hepatic encephalopathy. 3. Hypotension/ possible sepsis 4. Pancytopenia secondary to hypersplenism. 5. End-stage renal disease. 6. Chronic anemia. PLAN: 1. We will admit patient to medical floor. 2. Continue with neuro checks. 3. Continue with IV fluids, check blood cultures. Patient given abx in ER. 4. We will check ammonia level. 5. Continue with his lactulose. 6. We will consult Nephrology for dialysis. 7. We will put patient on DVT prophylaxis with SCDs. 8. We will continue to follow, and reassess and make further recommendation based on patient's clinical course. cc: Travis Tavarez MD MTDD
[2019-03-09] MEDS ORDERED: NS 1,000 ML IV SCH (05:09)
[2019-03-09] MEDS ORDERED: TIGHT: 0.2 ML/HR FOR DIALYSIS MISC PRN (06:16)
[2019-03-09] MEDS ORDERED: HEPARIN IV PRN (06:16)
[2019-03-09] MEDS ORDERED: NS 2,000 ML MISC PRN (06:16)
[2019-03-09 08:17] LABS: ALBUMIN 2.4 g/dL (3.5-5.0); CALCIUM 8.8 mg/dL (8.8-10.2); CREATININE 3.3 mg/dL (0.7-1.2); PHOSPHORUS 2.8 mg/dL (2.7-4.5); POTASSIUM 4.6 mmol/L (3.5-5.1)
[2019-03-09 08:23] LABS: BASO# 0.01 X1000 (0.0-0.2); BASO% 0.9 % (0.0-0.8); EOS# 0.02 X1000 (0.0-0.7); EOS% 1.8 % (0.0-10.0); HEMATOCRIT 23.7 % (42.0-52.0); HEMOGLOBIN 7.8 g/dL (14.0-18.0); LYMPH# 0.21 X1000 (1.2-3.4); LYMPH% 18.8 % (20.5-51.1); MCH 31.8 PG (27-31); MCHC 32.9 g/dL (33-37); MCV 96.7 FL (81-99); MONO# 0.22 X1000 (0.11-0.59); MONO% 19.6 % (1.7-9.3); MPV 9.9 FL (7.4-10.4); NEUT# 0.66 X1000 (1.4-6.5); NEUT% 58.9 % (42.2-75.2); PLT 27 X1000 (130-400); RBC 2.45 XMIL (4.7-6.1); RDW 19.4 % (11.5-14.5); WBC 1.12 X1000 (4.8-10.8)
[2019-03-09] MEDS ORDERED: LACTULOSE PO SCH (09:00)
[2019-03-09 09:27] LABS: BANDS 10 % (0-1); LYMPHS 20 % (21-51); MONO 2 % (1-9); SEGS 68 % (42-75)
[2019-03-09 09:28] LABS: BURR CELLS 2+
[2019-03-09 09:30] LABS: SPHEROCYTES 2+
[2019-03-09] MEDS ORDERED: ZOFRAN IV PRN (11:37)
[2019-03-09] MEDS: LACTULOSE PO SCH ×2 (13:00→20:45)
[2019-03-09] MEDS: XIFAXAN PO SCH ×2 (13:48→20:44)
--- NOTE | 2019-03-09 13:50 | PROGRESS NOTE ---
DATE: 03/09/2019 SUBJECTIVE: The patient was [facility] yesterday evening after he had been there for a few hours. Apparently, he had become confused. He may not have received his lactulose during the day yesterday, at which time he probably build up his ammonia level and became confused as he has prominent hepatic encephalopathy and has to take his lactulose at least t.i.d. I evaluated him yesterday morning and he was alert and oriented x3. He had, had paracentesis the day before, we had watched him overnight to make sure with the fluid shift he did not redevelop hepatic encephalopathy, which he did have difficulty with similarly about 10 days prior. So, at any rate, he did have some hepatic encephalopathy return, and he has been reluctant to take his lactulose once he was back here at the hospital, but the nurse has ensured that he took it and he has become more alert and is answering questions appropriately now. There is very minimal confusion. No diarrhea or bowel movements thus far. OBJECTIVE: Vitals: Afebrile, pulse 80, respirations 20, blood pressure 92/33, O2 saturation on room air 99%. CV: RRR without murmur. Lungs: Clear. Abdomen: With ascites, moderate. Extremities: No calf tenderness, cords or edema. Neurologic: Cranial nerves are intact. He is alert and oriented x2. Moves all extremities well. No focal deficits. LABORATORY DATA: Laboratory data reviewed shows white count of 1.1, hemoglobin 7.8, platelets 27,000. Sodium 132, potassium 4.6, chloride 99, CO2 18, BUN 35, creatinine 3.3, calcium 8.8, phosphorus 2.8. Albumin 2.4. The plasma lactate was elevated as you would expect with his encephalopathy and chronic illness, and is declining. Blood cultures x2 and urine culture are negative. His stool is positive for blood per Hemoccult testing. Blood cultures on recent hospitalization twice were negative. ASSESSMENT: 1. Hepatic encephalopathy, recurrent. 2. Cirrhosis of the liver secondary to FLORES, followed at [facility] in by Dr. Bonilla. Patient found at [facility] not to be a candidate for TIPS procedure nor transplantation. 3. Possible coronary artery disease. 4. End-stage renal disease, on hemodialysis per Dr. Reaves. 5. Prominent ascites, with reaccumulation frequently. Requires ultrasound-guided paracentesis every 14 days as recommended by Chad, Gastroenterology. 6. Esophageal varices. 7. Heme-positive stools. 8. Pancytopenia, with prominent anemia and leukopenia and thrombocytopenia secondary to hypersplenism. 9. Hypothyroidism. PLAN: The patient has been admitted and will be continued on his lactulose. We will resume some Xifaxan to ensure the best we can that his ammonia level stays as low as possible. It was in the 20s to 30s prior to discharge recently. We will continue hemodialysis per Dr. Reaves. We will monitor his CBC closely, with any transfusions being done by Dr. Reaves with his dialysis treatments. He had received some antibiotics of vancomycin and Zosyn in the emergency room and I am going to hold this at this time, but will be quick to resume them should the cultures show any growth. He is improved back on his lactulose. We will continue that and, again, add Xifaxan. Continue PPI. cc: Artem Quiroga MD
--- NOTE | 2019-03-09 14:40 | NEPHROLOGY PROGRESS NOTE ---
DATE: 03/09/2019 SUBJECTIVE: Mr. Sotelo is resting in bed. States that his left shoulder is hurting him just slightly. He is mostly supine. OBJECTIVE: Vital Signs: Temperature 98.3 degrees, blood pressure 115/51, heart rate 72, respirations 18m he is on room air. Last recorded saturation 100%. He has had 679 in and 30 mL out. LABORATORY DATA: Sodium 132, potassium 4.6, chloride 95, CO2 19, BUN 31, creatinine 3.3, glucose 99. His anion gap is 18, calcium is 8.7, albumin 2.5. White count 1.23, hemoglobin 6.8, hematocrit 20.8, with a platelet count of 29,000. The patient had a plasma lactate of 7.1 on admission down to 5.6 after his unit of packed red blood cells. PHYSICAL EXAMINATION: General: This is a 63-year-old elderly male. He is resting quietly in bed. He does not appear in any acute distress. Skin: Warm and dry. HEENT: Normocephalic, atraumatic. Conjunctiva is pale. He has PERRL. His mucous membranes are dry. Neck: Supple. Trachea midline. No evidence of JVD. Cardiovascular: Regular rate and rhythm. He is without murmur. He has an S4. Lungs: Clear to auscultation anteriorly, equal excursion. He is on O2. Abdomen: Large, distended, hypo bowel sounds. Genitourinary: Not inspected. Minimal void with dialysis assist. Extremities: 1+ lower extremity edema. No clubbing or cyanosis. Neurological: He is alert and oriented x3. ASSESSMENT AND PLAN: 1. Chronic kidney disease stage 5D. The patient had been discharged yesterday to [facility]. It appeared that he had weakness with altered mental status and low blood pressure. He was transported back to [facility] and is requiring dialysis today. We will plan to place him on a 2 K bath. He is to dialyze for 3.5 hours. We will attempt to pull 1 L of ultrafiltration. 2. Electrolytes and acid-base balance with correction on dialysis. 3. Anemia. Patient's hemoglobin on admission was 6.8. He was given 1 unit of packed red blood cells in the ER. 4. Hypotension with altered mental status. This has improved during his hospital stay with improvement in his blood pressure to 115/51 at this time. Followed by the primary care. I would like to thank you for allowing us to follow with this patient. Dictated by KEVIN Garza for Jose Reaves MD cc: KEVIN Garza MD
[2019-03-09] MEDS ORDERED: CALMOSEPTINE OINTMENT TOP PRN (18:49)
[2019-03-09] MEDS: CELEXA PO SCH (20:44)
[2019-03-10] MEDS: LACTULOSE PO SCH ×4 (02:14→21:37)
[2019-03-10] MEDS: PRILOSEC PO SCH (06:09)
[2019-03-10] MEDS: SYNTHROID PO SCH (06:09)
[2019-03-10 07:01] LABS: BASO# 0.02 X1000 (0.0-0.2); BASO% 1.4 % (0.0-0.8); EOS# 0.03 X1000 (0.0-0.7); EOS% 2.1 % (0.0-10.0); HEMOGLOBIN 7.3 g/dL (14.0-18.0); LYMPH# 0.28 X1000 (1.2-3.4); LYMPH% 19.3 % (20.5-51.1); MCH 30.8 PG (27-31); MCHC 33.2 g/dL (33-37); MCV 92.8 FL (81-99); MONO% 27.6 % (1.7-9.3); MPV 10.3 FL (7.4-10.4); NEUT# 0.72 X1000 (1.4-6.5); NEUT% 49.6 % (42.2-75.2); RBC 2.37 XMIL (4.7-6.1); RDW 18.9 % (11.5-14.5); WBC 1.45 X1000 (4.8-10.8)
[2019-03-10 07:04] LABS: PLT 34 X1000 (130-400)
[2019-03-10 07:24] LABS: CALCIUM 8.3 mg/dL (8.8-10.2); CREATININE 3.1 mg/dL (0.7-1.2); POTASSIUM 3.6 mmol/L (3.5-5.1)
[2019-03-10 08:02] LABS: BANDS 4 % (0-1); LYMPHS 16 % (21-51); SEGS 76 % (42-75)
[2019-03-10] MEDS: XIFAXAN PO SCH ×2 (09:56→21:37)
--- NOTE | 2019-03-10 10:04 | NEPHROLOGY PROGRESS NOTE ---
DATE: 03/10/2019 DATE AND TIME SEEN: 03/10/2019 at 07:50. SUBJECTIVE: Mr. Sotelo is resting quietly in bed. States that he slept well last night, felt that he tolerated dialysis well yesterday except for a drop in his blood pressure. OBJECTIVE: VITAL SIGNS: Temperature 97.8 degrees, blood pressure 98/53, heart rate 70, respirations 16. He is on room air. Last recorded saturation 97%. He has had 750 in, he has had 600 out to void. LABORATORY DATA: Sodium 127, potassium 3.6, chloride 95, CO2 22, BUN 34, creatinine 3.1, glucose 88, anion gap 10, calcium 8.3. White count 1.45, hemoglobin 7.3, hematocrit 22, platelet count 34,000. Ammonia level is 40. PHYSICAL EXAMINATION: General: This is a 63-year-old elderly male, resting quietly in bed. He appears in no acute distress though chronically ill. Skin: Warm and dry. HEENT: Normocephalic, atraumatic. Conjunctivae pale. He has GENE. Mucous membranes are dry. Neck: Supple. Trachea midline. The patient has trace JVD today. Cardiovascular: Regular rate and rhythm. He has an S4 present. Lungs: Clear to auscultation anteriorly, equal excursion. Remains on O2. Abdomen: Large, distended. Hypo bowel sounds present, tympanic in nature. Genitourinary: Not inspected. Minimal void with dialysis assist. Extremities: Continues with 1+ lower extremity edema. He does have trace to his hands today, these are dependent. Neurological: Alert and oriented x3. ASSESSMENT AND PLAN: 1. Chronic kidney disease stage 5D. The patient had a low blood pressure while on dialysis yesterday. We ended up giving him a liter of fluid during his treatment, turned off his UF and just cleaned his blood. He tolerated this well. Blood pressure remained stable after returning to the floor. 2. Electrolytes, acid-base balance. These are acceptable. 3. Anemia. This is low but stable. 4. Hypotension with altered mental status. Patient was hypotensive on dialysis yesterday. We did give him more fluid volume. He tolerated this well with improvement. 5. Ascites with cirrhosis secondary to non-alcoholic steatohepatitis. This currently remains stable. The last time he had a paracentesis was on Tuesday prior to discharge for 11 L. Would like to thank you for allowing us to follow with this patient. Dictated by KEVIN Garza for Jose Reaves MD cc: KEVIN Garza MD Stephen W. Harbin, MD
--- NOTE | 2019-03-10 12:05 | PROGRESS NOTE ---
DATE: 03/10/2019 SUBJECTIVE: Mr. Sotelo, who is a 63-year-old white gentleman, has hepatic encephalopathy. He is somewhat drowsy. He answered to the questions appropriately today. He has end-stage renal disease. OBJECTIVE: Vital signs are stable. Blood pressure was somewhat low which was 97/61. Abdomen is distended. He had ascites. Overall condition is unchanged. His platelet count has come up from 27,000 to 34,000. Sodium is 127. His BUN is 34, creatinine is 8.1. He is on lactulose. His lactate level is 5.6. Blood and urine cultures are negative. Stool is positive for occult blood. He is on Xifaxan and lactulose for the hepatic encephalopathy. ASSESSMENT: Overall condition is unchanged. cc: MD Artem Holt MD
[2019-03-10] MEDS: CELEXA PO SCH (21:37)
[2019-03-11] MEDS: LACTULOSE PO SCH ×4 (01:19→21:23)
[2019-03-11] MEDS: PRILOSEC PO SCH (06:20)
[2019-03-11] MEDS: SYNTHROID PO SCH (06:20)
[2019-03-11 06:50] LABS: ALBUMIN 1.8 g/dL (3.5-5.0); CALCIUM 8.6 mg/dL (8.8-10.2); CREATININE 3.9 mg/dL (0.7-1.2); PHOSPHORUS 3.2 mg/dL (2.7-4.5); POTASSIUM 3.4 mmol/L (3.5-5.1)
[2019-03-11] MEDS: XIFAXAN PO SCH ×2 (08:00→21:23)
--- NOTE | 2019-03-11 12:37 | PROGRESS NOTE ---
DATE: 03/11/2019 Mr. Sotelo had dialysis on Tuesday. He is anemic. He has hypotension, has severe ascites. He has some electrolyte imbalance with sodium of 130, potassium 3.4, chloride 96, CO2 of 22, BUN is 41, creatinine 3.9. Blood pressure was 106/58. Overall prognosis is poor. He has a large amount of ascites. -7 cc: MD Artem Holt MD
[2019-03-11] MEDS: CELEXA PO SCH (21:23)
[2019-03-12] MEDS: LACTULOSE PO SCH ×2 (02:51→15:14)
[2019-03-12] MEDS: PRILOSEC PO SCH (06:05)
[2019-03-12] MEDS: SYNTHROID PO SCH (06:05)
[2019-03-12] MEDS ORDERED: TIGHT: 0.2 ML/HR FOR DIALYSIS MISC PRN (06:31)
[2019-03-12] MEDS ORDERED: NS 2,000 ML MISC PRN (06:31)
[2019-03-12] MEDS ORDERED: HEPARIN IV PRN (06:31)
[2019-03-12 07:41] LABS: ALBUMIN 1.7 g/dL (3.5-5.0); CALCIUM 8.5 mg/dL (8.8-10.2); CREATININE 4.1 mg/dL (0.7-1.2); PHOSPHORUS 3.6 mg/dL (2.7-4.5); POTASSIUM 3.3 mmol/L (3.5-5.1)
--- NOTE | 2019-03-12 08:29 | NEPHROLOGY PROGRESS NOTE ---
DATE: 03/12/2019 TIME SEEN: 0650. SUBJECTIVE: The patient states that he is feeling fair. He has no complaints of increased work of breathing. Denies chest pain. OBJECTIVE: His most recent vital signs, temperature 97.5 degrees, blood pressure 109/67, heart rate 69, respirations 14. He is currently on room air. Last recorded saturation is 93%. He has had 440 in, 0 recorded out with need for dialysis. Labs: Sodium is 126, potassium 3.3, chloride is 95, CO2 is 22, BUN of 45, creatinine 4.1, glucose 101, anion gap of 9, calcium 8.5, phosphorus 3.6, albumin 1.7. Previous hemoglobin of 7.3. Physical Examination: General: This is a 63-year-old, elderly male. He is resting quietly in bed. He is in no acute distress, though appears chronically ill. Skin is warm and dry. HEENT: Normocephalic, atraumatic. Conjunctivae pale. He has GENE. Mucous membranes are dry. Neck: Supple. Trachea midline. No evidence of JVD. Cardiovascular: Regular rate and rhythm. S1, S2 noted. He has S4 present. Lungs: Clear to auscultation bilaterally. Equal excursion. He is currently on O2. Abdomen: Large, distended. Hypoactive bowel sounds present. Genitourinary: Not inspected. Minimal void with dialysis assist. Extremities: Continues with a 1 to possibly 2+ lower extremity edema. These continue also in his hands. Neurological: Alert and oriented x3. ASSESSMENT AND PLAN: 1. Chronic kidney disease stage 5D. The patient continues to have a low blood pressure while on dialysis. We will plan for dialysis today. We will place him on a 3K bath. He is to dialyze for 3.5 hours. We will attempt to pull patient to his outpatient dry weight. Secondary to his hypotensive episodes, we will give him 50 g of albumin prior to each dialysis treatment x3 doses. 2. Electrolytes, acid-base balance, with correction on dialysis. 3. Anemia. This remains low but stable. No indications for transfusion. 4. Hypotension. Again, we will give patient 50 g of albumin prior to his next 2 dialysis treatments if he remains in the hospital. 5. Ascites secondary to cirrhosis. We will see if the albumin does also help with some of his fluid volume shift. I would like to thank you for allowing us to follow with this patient. Dictated by KEVIN Garza for Addis Mcadams MD cc: KEVIN Garza MD [facility]
[2019-03-12] MEDS: ALBUMIN 25% IV SCH (09:27)
[2019-03-12] MEDS: XIFAXAN PO SCH ×2 (15:14→21:55)
--- NOTE | 2019-03-12 17:39 | PROGRESS NOTE ---
DATE: 03/12/2019 SUBJECTIVE: The patient is stable. He had dialysis during the morning and early afternoon. I checked on him twice. He was in hemodialysis. He is having no specific problems currently. OBJECTIVE: Vital signs: Afebrile. Pulse 69, blood pressure marginal at 85/49 after dialysis, O2 saturation 100%. General: He is lying flat without difficulty breathing. He is arousable. Skin: Slightly dry. CV: RRR without murmur. Lungs: Clear. Abdomen: Prominent ascites. Extremities: No edema. Neurologic: Nonfocal. Alert and oriented x3. LAB DATA: Reviewed from this morning prior to dialysis, showing sodium 126, potassium 3.3, chloride 95, CO2 22, BUN 45, creatinine 4.1, calcium 8.5, phosphorus 3.6, albumin 1.7. The patient received some albumin again, 3 doses in all, to be given daily per Nephrology. ASSESSMENT: 1. Hepatic encephalopathy, recurring, stable on lactulose q.6 hours and Xifaxan b.i.d. 2. 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 3. Coronary artery disease. 4. End-stage renal disease, on hemodialysis per Dr. Reaves. 5. Prominent ascites, having outpatient scheduled ultrasound guided paracentesis q.[address] Bonilla. 6. Esophageal varices, inactive. 7. Heme-positive stools with no signs of active prominent bleeding. 8. Pancytopenia related to hypersplenism. 9. Hypothyroidism. PLAN: Reduce the lactulose slightly to t.i.d. Continue Xifaxan b.i.d. Continue hemodialysis and continue daily administration of albumin. Back to the shelter facility in 3 to 4 days if he continues to do well. cc: Artem Quiroga MD
[2019-03-12] MEDS: CELEXA PO SCH (21:56)
[2019-03-13] MEDS: SYNTHROID PO SCH (06:05)
[2019-03-13] MEDS: PRILOSEC PO SCH (06:05)
[2019-03-13 06:12] LABS: ALBUMIN 2.2 g/dL (3.5-5.0); CALCIUM 8.3 mg/dL (8.8-10.2); CREATININE 2.9 mg/dL (0.7-1.2); PHOSPHORUS 2.8 mg/dL (2.7-4.5); POTASSIUM 3.1 mmol/L (3.5-5.1)
--- NOTE | 2019-03-13 09:01 | NEPHROLOGY PROGRESS NOTE ---
DATE: 03/13/2019 DATE AND TIME SEEN: On 03/13/2019 at 0635 hours. SUBJECTIVE: Mr. Sotelo is resting quietly in bed, states that he is feeling well. Tolerated dialysis well yesterday. OBJECTIVE/VITAL SIGNS: His most recent vital signs, temperature 98.1 degrees, blood pressure 97/55, heart rate 69, respirations 18. He is on room air. Last recorded saturation 100%. He has had 711 in. He has had 0 recorded out. He was pulled even on dialysis yesterday. LABORATORY DATA: Sodium is 129, potassium 3.1, chloride 96, CO2 of 24, BUN 31, creatinine 2.9, glucose is 94. His anion gap is 9. His calcium is 8.3, phosphorus 2.8, albumin of 2.2. Previous hemoglobin of 7.3. Blood cultures are negative. PHYSICAL EXAMINATION: General: This is a 63-year-old white male. He is currently resting quietly in bed. He appears chronically ill, in no acute distress. Skin: Warm and dry. HEENT: Normocephalic, atraumatic. Conjunctivae are pale. He has GENE. Mucous membranes are dry. Neck: Supple. Trachea midline. No JVD in the current position. Cardiovascular: He is regular rate and rhythm. He has an S4 that is present. Lungs: Clear to auscultation bilaterally. Equal excursion. He is on room air. Abdomen: Distended. Hypoactive bowel sounds present. Genitourinary: Not inspected. Minimal void with dialysis assist. Extremities: Continues with 1 to 2+ lower extremity edema. Continues with edema to his upper extremities, greater in his hands. Neurological: He is alert and oriented x3. ASSESSMENT AND PLAN: 1. Chronic kidney disease stage 5D. The patient had his routine dialysis treatment yesterday. Tolerated this well. Blood pressure remains stable after giving 50 grams of albumin. He is to have another 50 grams today, and again we will give 50 grams before his dialysis treatment in the morning if he is still present in the hospital. 2. Electrolytes and acid-base balance. Continue with a low sodium of 129 and a potassium of 3.1, though these remain stable. We will replace with potassium today with further correction on dialysis. 3. Acid-base balance. This is acceptable. 4. Anemia. This is low with a hemoglobin of 7.3. We will recheck it in the a.m. to determine his status before discharge. 5. Ascites secondary to cirrhosis. We did give albumin yesterday. Plan for 50 grams again today and again tomorrow prior to his dialysis treatment. I would like to thank you for allowing us to follow with this patient. Dictated by KEVIN Garza for Addis Mcadams MD cc: KEVIN Garza MD [id number] encounter, data reviewed and patient discussed with Swathi Mcintyre on 03/13/19. I agree with above assessment and plan of care. Pt with significant hyponatremia and low albumin. Hypotensive episodes on dialysis, hence will try remove no more than a liter with each treatment, if hemodynamically tolerated. MILANA LUNA
[2019-03-13] MEDS: XIFAXAN PO SCH ×2 (09:53→21:08)
[2019-03-13] MEDS: LACTULOSE PO SCH ×3 (09:53→18:08)
[2019-03-13] MEDS: ALBUMIN 25% IV SCH (09:54)
[2019-03-13] MEDS: ZYRTEC PO SCH (13:26)
--- NOTE | 2019-03-13 13:50 | PROGRESS NOTE ---
DATE: 03/13/2019 SUBJECTIVE: The patient is resting in bed supine without shortness of breath. Complains of some itching. OBJECTIVE: Vital Signs: Afebrile, vital signs stable. CV: RRR. No murmur. Lungs: CTA. Abdomen: Protuberant. Moderate to severe ascites. Extremities: No major edema. Neurologic: Cranial nerves 2-12 are intact. He moves all extremities well. He follows commands, answers questions appropriately. At times, seems to joke with me about answering some of his questions. No asterixis. Alert and oriented x3. ASSESSMENT: 1. Hepatic encephalopathy, stable on lactulose and Xifaxan. 2. 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 3. Coronary artery disease. 4. End-stage renal disease on hemodialysis per Dr. Reaves. 5. Prominent ascites, having outpatient ultrasound-guided paracentesis every [address] Bonilla's recommendations. 6. Esophageal varices, stable. 7. Hemoccult-positive stool with no apparent bleeding. 8. Pancytopenia related to hypersplenism. 9. Hypothyroidism. 10. Do not resuscitate level 1. PLAN: Continue lactulose t.i.d. and Xifaxan b.i.d. Will add physical therapy and Professor Of Forest[employer] is going to work to get him a bed back at [facility] again. Continue hemodialysis on Mondays, Wednesdays and Fridays. He is receiving albumin 3 days in a row at high-dose per Nephrology, and he will receive another dose today and then tomorrow ,and after his dialysis tomorrow if bed available at [facility], we plan on discharging him back there on the high-dose lactulose and Xifaxan. Warned the patient not to joke, but to answer questions appropriately when asked, especially at the long-term care facility. cc: Artem Quiroga MD
[2019-03-13] MEDS: CELEXA PO SCH (21:08)
[2019-03-14 05:51] LABS: ALBUMIN 2.6 g/dL (3.5-5.0); CALCIUM 8.2 mg/dL (8.8-10.2); CREATININE 3.4 mg/dL (0.7-1.2); PHOSPHORUS 2.9 mg/dL (2.7-4.5)
[2019-03-14] MEDS ORDERED: TIGHT: 0.2 ML/HR FOR DIALYSIS MISC PRN (06:09)
[2019-03-14] MEDS ORDERED: HEPARIN IV PRN (06:09)
[2019-03-14] MEDS ORDERED: NS 2,000 ML MISC PRN (06:09)
[2019-03-14] MEDS: PRILOSEC PO SCH (06:16)
[2019-03-14] MEDS: SYNTHROID PO SCH (06:30)
[2019-03-14 06:31] LABS: BASO# 0.03 X1000 (0.0-0.2); BASO% 0.8 % (0.0-0.8); EOS# 0.13 X1000 (0.0-0.7); EOS% 3.7 % (0.0-10.0); HEMATOCRIT 19.5 % (42.0-52.0); HEMOGLOBIN 6.6 g/dL (14.0-18.0); LYMPH# 0.72 X1000 (1.2-3.4); LYMPH% 20.4 % (20.5-51.1); MCH 31.4 PG (27-31); MCHC 33.8 g/dL (33-37); MCV 92.9 FL (81-99); MONO# 0.43 X1000 (0.11-0.59); MONO% 12.2 % (1.7-9.3); MPV 9.7 FL (7.4-10.4); NEUT# 2.22 X1000 (1.4-6.5); NEUT% 62.9 % (42.2-75.2); PLT 46 X1000 (130-400); RDW 19.1 % (11.5-14.5); WBC 3.53 X1000 (4.8-10.8)
[2019-03-14] MEDS: ZYRTEC PO SCH (08:47)
[2019-03-14] MEDS: XIFAXAN PO SCH ×2 (08:47→22:25)
[2019-03-14] MEDS: LACTULOSE PO SCH ×3 (08:47→16:52)
--- NOTE | 2019-03-14 09:17 | DISCHARGE SUMMARY ---
ADMISSION DATE: 03/08/2019 DISCHARGE DATE: 03/15/2019 DIAGNOSES: 1. Mental status change readmission secondary to recurrent hepatic encephalopathy, now once again stable on high dose lactulose and Xifaxan. 2. 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 Patient deemed not a candidate for TIPS procedure nor transplant at [facility], and he is followed chronically by Dr. Bonilla. 3. Coronary artery disease. 4. End-stage renal disease on hemodialysis per Dr. Reaves, Mondays, Wednesdays, and Fridays. 5. Prominent ascites. Patient having ultrasound-guided paracentesis per the radiologist every [address] Bonilla's recommendations. 6. Esophageal varices, stable. 7. Hemoccult-positive stool chronically with no significant bleeding. 8. Pancytopenia, primarily related to hypersplenism, but also related to anemia of chronic disease and possibly some mild gastrointestinal blood loss with patient receiving 2 units packed red blood cells transfused during this hospitalization. 9. Hypothyroidism. 10. Do not resuscitate level 1. CONSULTANTS: Dr. Reaves, Nephrology. PROCEDURES: Hemodialysis Mondays, Wednesdays and Fridays. REASON FOR ADMISSION AND HOSPITAL COURSE: The patient is a 63-year-old white male, who suffers from severe cirrhosis of the liver secondary to FLORES as above. He has recurrent hepatic encephalopathy, and had mental status change when he got back out to the long- term care facility at [facility]. He was transferred back. Placed back on lactulose at high dose and Xifaxan. His ammonia normalized and was at 40 and 46 during checks during the hospitalization. He remains off and on confused, but is alert and oriented x2 presently. He is non combative. He follows commands well. He knows the president. Does not know the environmental services manager. Does not know the year, but does know the month. He knows his name and knows where he is at without difficulty. He knows the situation he is. PERTINENT LABS: On discharge, sodium 131, potassium 3.0, chloride 95, CO2 22, BUN 39, creatinine 3.4, calcium 8.2, phosphorus 2.9, albumin 2.6. He did receive 3 doses of high- dose albumin IV 3 days consecutive prior to discharge. White count was 3.53, hemoglobin 6.6; that was before he received the 2 units PRBCs transfused prior to discharge. Platelets 46 and chronically low; that is up from what it has been generally during the hospitalization. DISCHARGE INSTRUCTIONS: He has had no signs of active bleeding. He will be discharged back to the long-term care facility at [facility]. He will be transferred on Mondays, Wednesdays, and Fridays for his routine dialysis at [facility] per Dr. Reaves, and every 14 days he will have ultrasound- guided paracentesis per radiologist at [facility]. Dr. Bonilla has recommended this and is arranging that. The next time for his paracentesis will be on March 20. Ammonia level at discharge is 46. Other notable labs show urine culture negative. Blood cultures x2 negative after 5 days. ADDENDUM: Pt. unable to receive transfusion until late on 03/14 so was discharged on 03/15. cc: Artem Quiroga MD [facility]
[2019-03-14] MEDS: ALBUMIN 25% IV SCH (10:38)
--- NOTE | 2019-03-14 13:25 | NEPHROLOGY PROGRESS NOTE ---
DATE: 03/14/2019 TIME SEEN: 06:55. SUBJECTIVE: Mr. Sotelo is resting quietly in bed. He is in need of dialysis today. States that he is feeling well, a little cold today. OBJECTIVE: His most recent vital signs, his temperature 98.4 degrees, blood pressure 111/57, heart rate 68, respirations 18. He is on 2 L nasal cannula. Last recorded saturation 100%. He has had 580 in, 0 recorded out. LABS: Sodium is 131, potassium 3, chloride 95, CO2 222, BUN 39, creatinine 3.4, glucose is 108. His anion gap is 14, calcium 8.2, phosphorus 2.9, albumin 2.6. Previous hemoglobin 7.3 with an ammonia level of 46. PHYSICAL EXAM: This is a 63-year-old white male. He is resting quietly in bed. He appears chronically ill in no acute distress.Skin: Warm and dry. HEENT: Normocephalic, atraumatic. Conjunctivae pale. He has GENE. Mucous membranes dry. Neck: Supple. Trachea midline. No JVD in his current sideline position. Cardiovascular: Regular rate and rhythm. S4 is present. Lungs: Clear to auscultation bilaterally. Equal excursion on room air. Abdomen: Distended. Hypoactive bowel sounds present. Genitourinary: Not inspected. Minimal void with dialysis assist. Extremities: Continues with 1 to 2+ lower extremity edema, dependent. Continues with some upper extremity edema also, greater in the hands. Neurological: Alert and oriented x3. ASSESSMENT AND PLAN: 1. Chronic kidney disease stage 5D. The patient is in need of his dialysis treatment today. We will dialyze him for 3.5 hours. We will attempt to pull patient 1 L below his last inpatient dry weight. We will place him on a 3K bath. 2. Electrolytes and acid-base balance with correction on dialysis. 3. Anemia. This has remained low but stable. Awaiting his CBC for today. 4. Ascites secondary to cirrhosis. The patient has plans to receive 50 g of albumin today at start of his dialysis treatment. He is to follow up with Dr. Bonilla on an every 14 day basis for paracentesis. Schedule noted for next paracentesis on March 20. I would like to thank you for allowing us to follow with this patient. Dictated by KEVIN Garza for Addis Mcadams MD cc: KEVIN Garza MD [facility]
[2019-03-14] MEDS ORDERED: NS 500 ML IV SCH (16:00)
[2019-03-14] MEDS: CELEXA PO SCH (22:25)
[2019-03-14 23:27] VITALS: BP 105/50
== END 2019-03-15 01:04 | DRG 441 ==
LOC: SUPCPDRO → ED 20:37 → 2N 03-09 03:15 → SUATTDRO 03-09 03:15 → 3N 03-11 18:04 → 1N 03-12 20:35
PROVIDERS: ADMIT Family Medicine; ATTEND Family Medicine

== ENCOUNTER 2019-03-16 16:50 | Inpatient (IN) ==
--- NOTE | 2019-03-16 17:39 | PROVIDER DOCUMENTATION ---
HPI-General Adult - General Chief Complaint: General Adult Stated Complaint: POSSIBLE INFECTED PORT Time Seen by Provider: 03/16/19 17:05 Source: patient Allergies/Adverse Reactions: Patient Allergies Allergy/AdvReac Type Severity Reaction Status Date / Time No Known Allergies Allergy Verified 03/16/19 17:22 Home Medications: Home Medication List Medication Instructions Recorded Confirmed Last Taken Type Citalopram [Celexa] 20 mg PO QHS 04/25/18 03/09/19 02/13/19 History Omeprazole [Prilosec] 20 mg PO DAILY@0700 02/14/19 03/09/19 02/13/19 History Lactulose 30 ml PO TID 02/22/19 03/09/19 Unknown History Cetirizine [Zyrtec] 10 mg PO DAILY PRN PRN tab 03/08/19 03/09/19 Unknown Rx Levothyroxine [Synthroid] 150 microgm PO DAILY@0700 tab 03/08/19 03/09/19 Unknown Rx Ondansetron [Zofran] 4 mg PO Q6H PRN PRN 03/08/19 03/09/19 Unknown Rx Cetirizine [Zyrtec] 10 mg PO DAILY tab 03/14/19 Unknown Rx Menthol/Zinc Oxide Ointment 1 gm TOP PRN PRN tube 03/14/19 Unknown Rx [Calmoseptine Ointment] Rifaximin [Xifaxan] 550 mg PO BID tab 03/14/19 Unknown Rx - History of Present Illness -Gen Adult Nature of Presenting Problems: Patient is a 63 yowm who arrived via EMS from dialysis due to exudate and bleeding from dialysis catheter (located to right chest). He also reports SOB and abdominal distention with occasional vomiting x 2 weeks. Hx of liver and renal failure. Denies fever or any other complaints. Review of Systems - Adult - REVIEW OF SYSTEMS - ADULT Constitutional: reports: no symptoms reported Eyes: reports: no symptoms reported Ears, Nose, Mouth & Throat: reports: no symptoms reported Cardiovascular: reports: no symptoms reported Respiratory: reports: see HPI Gastrointestinal: reports: see HPI Genitourinary: reports: no symptoms reported Musculoskeletal: reports: no symptoms reported Integumentary: reports: see HPI Neurological: reports: no symptoms reported Psychiatric: reports: no symptoms reported Endocrine: reports: no symptoms reported Hematologic/Lymphatic: reports: no symptoms reported Allergic/Immunologic: reports: no symptoms reported All Other Systems: Reviewed and Negative Past History - Adult - PAST MEDICAL HISTORY-ADULT Review of Records: reports: Old Records Reviewed, Nursing Assessment Review, Medications Reviewed Major Childhood Illnesses: reports: denies history Cardiovascular: reports: denies history Respiratory: reports: denies history Gastrointestinal: reports: other (liver cirrhosis) Genitourinary: reports: ESRD Musculoskeletal: reports: denies history Neurological: reports: denies history Psychiatric: reports: denies history Endocrine/Immune: reports: denies history Other Conditions: reports: denies history - PRIOR SURGERIES/PROCEDURES Surgical/Procedure History: reports: reviewed, not pertinent - FAMILY HISTORY Family History: reviewed, not pertinent - SOCIAL HISTORY Smoking: non-smoker Physical Exam-General - PHYSICAL EXAM-ADULT Initial Vital Signs Reviewed: Yes - CONSTITUTIONAL General Appearance: appears well, moderate distress. negative: lethargic, slow to respond - EYES Eyes: PERRL/EOMI, pink conjunctivae - HEAD, EARS, NOSE, MOUTH & THROAT HENMT: normocephalic/atraumatic - NECK Neck: full range of motion, supple, normal inspection - RESPIRATORY Respiratory: chest non-tender, lungs clear, normal breath sounds, respiratory distress (mild) - CARDIOVASCULAR Cardiovascular: regular rate, rhythm, no gallop, no murmur - GASTROINTESTINAL (ABDOMEN) Abdominal Exam: normal bowel sounds, distended. negative: tenderness - MUSCULOSKELETAL Back Exam: normal inspection Extremity: normal range of motion, normal inspection - SKIN Integumentary: warm/dry, other (erythema noted surrounding dialysis cath to right chest, area also tender to palpation. Serosangiounous drainage noted from site.). negative: cyanosis, diaphoresis - NEUROLOGIC Neurologic: grossly normal, no motor/sensory deficits - PSYCHIATRIC Psych/Mental Status: normal mood/affect, normal thought content, normal thought process, oriented x 3 Progress - PLAN OF CARE/RESULTS Progress/Plan/Lab Results: Vital Signs - 8 hr 03/16/19 17:09 Temperature 97.7 F Pulse Rate 82 Respiratory Rate 18 Blood Pressure 106/60 O2 Sat by Pulse Oximetry 99 Orders Category Date Time Status Saline Loc NOW Care 03/16/19 17:28 Active CHEST-2 VIEWS [RAD] Stat Exams 03/16/19 17:[address] ABDOMEN/PELVIS W/O CONTRAST [CT] Stat Exams 03/16/19 17:28 Ordered CBC WITH DIFF [HEME] Stat Lab 03/16/19 17:28 Ordered COMPREHENSIVE METABOLIC PANEL [CHEM] Stat Lab 03/16/19 17:28 Uncollected MAGNESIUM [CHEM] Stat Lab 03/16/19 17:28 Uncollected PHOSPHORUS [CHEM] Stat Lab 03/16/19 17:28 Uncollected PROTIME WITH INR [COAG] Stat Lab 03/16/19 17:28 Ordered PTT [COAG] Stat Lab 03/16/19 17:29 Ordered TROPONIN T Stat Lab 03/16/19 17:28 Ordered EKG [EKG] Stat Ther 03/16/19 17:29 Ordered Result Diagrams: 03/16/19 17:45 03/16/19 17:45 - REASSESSMENT Reassessment #1 Time Reassessed: 17:38 Status: other (Spoke with dialysis nurse who states blood cultures were drawn tug captain, and she gave Vancomycin 2 g and Fortaz 1 g while pt was at dialysis.) Reassessment #2 Time Reassessed: 18:29 Status: other (Dr. Quiroga pagedavid.) Reassessment #3 Time Reassessed: 18:40 Status: other (Dr. Barnett at bedside) - CT/MRI 1 CT Study: Abdomen, Pelvis ([facility] - [address] [place] [address] [address] [address] [facility] - [address] [place] [address] Department of Imaging Patient: TONYA RAMSAY Date: 03/16/19#: [id number] : 5ADM Status: REG [facility]#: [id number] Age/Sex: 63/MRoom/Bed: Loc: ED Ordering Physician: Leatha Shaffer Family Physician: Artem Quiroga MD Reason for Procedure: abd distention, hx liver failure Signed EXAM: CT ABDOMEN/PELVIS W/O CONTRAST - 03/16/2019 HISTORY: abd distention, hx liver failure TECHNIQUE: CT abdomen/pelvis without contrast. No contrast administered per request of the referring provider. COMPARISON: 10/07/2018 FINDINGS: There is a small left pleural effusion similar to prior. There is a large amount ascites which is increased from prior. There are findings of apparent cirrhosis with portal hypertension and associated venous varicosities (most conspicuous near the splenic hilum), similar to prior. There are no acute abnormalities of the adrenal glands or pancreas identified. The gallbladder is mildly distended. There are no calcified gallstones seen. The bilateral kidneys are mildly small. There is no renal stone or hydronephrosis identified. There is no evidence of bowel obstruction. There is no discrete abscess identified. There is no free air identified. IMPRESSION: Large amount of ascites. Small left pleural effusion. Apparent cirrhosis with portal hypertension, similar to prior. Mildly small bilateral kidneys. No hydronephrosis. This exam was performed using automated exposure control, adjustment of mA or kV according to patient size, and/or use of iterative reconstruction technique. Electronically signed by Lucas Michelle 03/16/2019 6:15 PM 03/16/19 1815 Interpreting Physician: Lucas Michelle MD Dictated Date/Time: 03/16/19 1806 cc: Leatha Shaffer; Artem Quiroga MD) - CONSULTS/PCP/HOSPITALIST Notification #1 *Consult/PCP/Hospitalist*: Dr. Barnett Time Discussed: 18:34 Reason/Comments: ascites, infected dialysis cath Consult Disposition: other ( states he will speak to Dr. Reaves and call me back.) Departure - Departure Date of Disposition Decision: 03/16/19 Time of Disposition Decision: 18:42 DIAGNOSIS: Ascites Qualifiers: Ascites type: other type Qualified Code(s): R18.8 - Other ascites Infection, dialysis vascular access Qualifiers: Encounter type: initial encounter Qualified Code(s): T82.7XXA - Infection and inflammatory reaction due to other cardiac and vascular devices, implants and grafts, initial encounter Disposition: ADMITTED INPATIENT 09 Certified Medical Emergency: Emergent Condition: Fair Referrals and Follow-Ups: Artem Quiroga MD [Primary Care Provider] - - Critical Care Note This patient required my direct & personal management of CC.: No Attestation - Physician/ HENNA Attestation Patient care was provided by Advanced Practice Provider:: Yes Advanced Practice Provider:: Leatha Shaffer Advanced Practice Provider documentation review:: The Mid-level provider documentation, treatment plan and medical decision making was reviewed by the physician who agrees with all treatment and medical decision making by the MLP. The physician spent face to face time with patient:: No Advanced Practice Provider documentation review:: Supervising physician onsite and consulted in the evaluation and care of this patient. The physician did not have a face to face encounter with the patient.
[2019-03-16 18:18] LABS: BASO# 0.02 X1000 (0.0-0.2); BASO% 0.2 % (0.0-0.8); EOS# 0.04 X1000 (0.0-0.7); EOS% 0.4 % (0.0-10.0); HEMATOCRIT 23.4 % (42.0-52.0); HEMOGLOBIN 7.8 g/dL (14.0-18.0); IMM GRAN# 0.04 X1000 (0.0-0.04); IMM GRAN% 0.4 % (0.0-0.5); LYMPH# 0.68 X1000 (1.2-3.4); LYMPH% 6.5 % (20.5-51.1); MCH 30.7 PG (27-31); MCHC 33.3 g/dL (33-37); MCV 92.1 FL (81-99); MONO# 1.21 X1000 (0.11-0.59); MONO% 11.6 % (1.7-9.3); MPV 9.4 FL (7.4-10.4); NEUT# 8.48 X1000 (1.4-6.5); NEUT% 80.9 % (42.2-75.2); PLT 72 X1000 (130-400); RBC 2.54 XMIL (4.7-6.1); RDW 19.9 % (11.5-14.5); WBC 10.47 X1000 (4.8-10.8)
--- NOTE | 2019-03-16 18:18 | Diag Imaging Result Doc PS360 ---
EXAM: CT ABDOMEN/PELVIS W/O CONTRAST - 03/16/2019 HISTORY: abd distention, hx liver failure TECHNIQUE: CT abdomen/pelvis without contrast. No contrast administered per request of the referring provider. COMPARISON: 10/07/2018 FINDINGS: There is a small left pleural effusion similar to prior. There is a large amount ascites which is increased from prior. There are findings of apparent cirrhosis with portal hypertension and associated venous varicosities (most conspicuous near the splenic hilum), similar to prior. There are no acute abnormalities of the adrenal glands or pancreas identified. The gallbladder is mildly distended. There are no calcified gallstones seen. The bilateral kidneys are mildly small. There is no renal stone or hydronephrosis identified. There is no evidence of bowel obstruction. There is no discrete abscess identified. There is no free air identified. IMPRESSION: Large amount of ascites. Small left pleural effusion. Apparent cirrhosis with portal hypertension, similar to prior. Mildly small bilateral kidneys. No hydronephrosis. This exam was performed using automated exposure control, adjustment of mA or kV according to patient size, and/or use of iterative reconstruction technique. Electronically signed by Lucas Michelle 03/16/2019 6:15 PM
[2019-03-16 18:19] LABS: INR 2.29; PROTIME 25.9 Seconds (11.0-16.0)
--- NOTE | 2019-03-16 18:25 | Diag Imaging Result Doc PS360 ---
EXAM: CHEST-2 VIEWS - 03/16/2019 HISTORY: SOB TECHNIQUE: Chest two views COMPARISON: 03/08/2019 FINDINGS: Heart size is normal. Inspiration is mildly shallow. There is subsegmental atelectasis at the left base. The remainder of the lungs appear essentially clear. There is no pleural effusion or pneumothorax identified. Central venous catheter remains in place. IMPRESSION: Mildly shallow inspiration. Subsegmental atelectasis at left base. No other evidence of acute disease. Electronically signed by Lucas Michelle 03/16/2019 6:22 PM
[2019-03-16 18:36] LABS: ALB/GLOB RATIO 1.4; ALBUMIN 2.7 g/dL (3.5-5.0); CALCIUM 8.4 mg/dL (8.8-10.2); CREATININE 2.6 mg/dL (0.7-1.2); MAGNESIUM 1.6 mg/dL (1.5-2.7); PHOSPHORUS 2.6 mg/dL (2.7-4.5); POTASSIUM 3.4 mmol/L (3.5-5.1); TOTAL BILIRUBIN 5.59 mg/dL (0.20-1.00); TOTAL PROTEIN 4.7 g/dL (6.3-8.3)
--- NOTE | 2019-03-16 19:29 | HISTORY AND PHYSICAL ---
CHIEF COMPLAINT: Shortness of breath. HISTORY OF PRESENT ILLNESS: He is a 63-year-old pleasant white male, recently discharged from the hospital 2 days ago to [facility]. He had dialysis today. Obviously, catheter was infected. Gave vancomycin. He did finish the dialysis. Despite, patient continues to have shortness of breath due to intractable ascites obviously. The patient's daughter was at bedside. His son was not in the ER and he was watching a ball game. As per the previous reports, he does have a Living Will, Do Not Resuscitate. He complains of shortness of breath. No chest pain. He is basically admitted to the hospital for paracentesis to make him comfortable and also possible line sepsis. As a result, he was readmitted to the hospital. Most of the history was obtained from the previous reports. PAST MEDICAL HISTORY: 1. Cirrhosis of liver, secondary to FLORES. 2. Pancytopenia, due to hypersplenism. 3. Hepatic encephalopathy. 4. Morbid obesity. 5. History of esophageal varices. 6. Chronic back pain. 7. Hypothyroidism. 8. B12 deficiency. 9. End-stage renal disease, on hemodialysis. 10. CAD. PAST SURGICAL HISTORY: 1. Fusion L3, L4, L5. 2. Lumbar laminectomy. 3. Right inguinal hernia repair. 4. Umbilical hernia repair. 5. Multiple paracenteses. 6. Dialysis catheter on the right side of the chest. ALLERGIES: Reported not known. SOCIAL HISTORY: Lives in [place], currently in [facility]. Limited activities of daily living. No history of smoking or alcohol abuse. FAMILY HISTORY: Father of heart attack 79. LIVING WILL: Appears to be Do Not Resuscitate. MEDICATIONS: 1. Celexa 20 mg daily. 2. Lactulose 30 p.o. t.i.d. 3. Prilosec 20 p.o. daily. 4. Synthroid 150 mcg daily. 5. Xifaxan 550 p.o. b.i.d. 6. Cetirizine 10 mg daily. 7. Vancomycin was given in dialysis. REVIEW OF SYSTEMS: HEENT: No mental confusion, in and out delirium. Neck: No neck pain. Cardiopulmonary: No chest pain. Shortness of breath, swelling of feet, swelling of the abdomen. Abdomen: No altered bowel habits. Neurological: No neurological symptoms or weakness. PHYSICAL EXAMINATION: VITAL SIGNS: Temperature is 97 degrees, pulse 82, blood pressure 106/60, height 6 feet 1 inch, weight 200 pounds. GENERAL: Morbidly obese. Mild respiratory distress. HEENT: Pale and mild icterus. NECK: Supple. CHEST: Dialysis catheter present on the right side. Bilateral air entry. HEART: Distant heart sounds. ABDOMEN: Belly is soft. Umbilical hernia present. Intractable ascites. EXTREMITIES: Trace pedal edema. NEUROLOGIC: No asterixis. No obvious deficits noted. LABS: 1. CBC: White cell count 10.4, hematocrit 23, platelets 72,000. PT 25, INR 2.2, PTT 50. Sodium 136, potassium 3.4, BUN 25, creatinine 2.6, glucose 121, total bilirubin 5.9, albumin 2.7. 2. Chest x-ray: Shallow inspiration, atelectasis at the left base. 3. CT scan of the abdomen and pelvis: Large amount of ascites, small left pleural effusion, cirrhosis with portal hypertension, small bilateral kidneys, no hydronephrosis. ASSESSMENT AND PLAN: A 63-year-old white gentleman admitted to the hospital with: 1. 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 Plan is attempt at paracentesis tomorrow by radiologist, fluid restrictions, daily weights. 2. End-stage kidney disease, on hemodialysis 3 times a week. 3. Possible line sepsis. Consult Dr. Reaves. The patient was given vancomycin. 4. Hepatic encephalopathy, on lactulose and Xifaxan. 5. Hypothyroidism, on Synthroid. 6. Acid reflux disease, on Prilosec. 7. Depression, on Celexa. 8. Living Will, reported Do Not Resuscitate. Declines hospice care. 9. Continue supportive care as needed and we will follow up. cc: Sergo Barnett MD
--- NOTE | 2019-03-16 20:19 | EKG Report ---
Test Performed on : 03/16/2019 6:30:34 PM Test Reason : sob Blood Pressure : / mmHG Vent. Rate : 083 BPM Atrial Rate : 083 BPM P-R Int : 088 ms QRS Dur : 120 ms QT Int : 538 ms P-R-T Axes : 000 -16 063 degrees QTc Int : 632 ms Sinus rhythm. with short DC with premature supraventricular complexes. Low voltage QRS Cannot rule out Anterior infarct , age undetermined Abnormal ECG When compared with ECG of 08-MAR-2019 20:59, (Unconfirmed) Sinus rhythm. has replaced Ectopic atrial rhythm. QT has lengthened Unconfirmed Result
[2019-03-16] MEDS ORDERED: VITAMIN K 10 MG in NS 50 ML IV ONE (21:59)
[2019-03-17 06:46] LABS: BASO# 0.01 X1000 (0.0-0.2); BASO% 0.2 % (0.0-0.8); EOS# 0.07 X1000 (0.0-0.7); EOS% 1.4 % (0.0-10.0); HEMATOCRIT 18.6 % (42.0-52.0); HEMOGLOBIN 6.2 g/dL (14.0-18.0); LYMPH# 0.61 X1000 (1.2-3.4); LYMPH% 12.4 % (20.5-51.1); MCHC 33.3 g/dL (33-37); MONO# 0.72 X1000 (0.11-0.59); MONO% 14.7 % (1.7-9.3); MPV 10.1 FL (7.4-10.4); NEUT# 3.49 X1000 (1.4-6.5); NEUT% 71.3 % (42.2-75.2); PLT 49 X1000 (130-400); RDW 19.8 % (11.5-14.5)
[2019-03-17 07:25] LABS: CREATININE 3.5 mg/dL (0.7-1.2); POTASSIUM 3.3 mmol/L (3.5-5.1)
[2019-03-17] MEDS ORDERED: CALMOSEPTINE OINTMENT TOP PRN (08:14)
--- NOTE | 2019-03-17 09:25 | NEPHROLOGY CONSULTATION ---
DATE: 03/17/2019 REASON FOR ADMISSION: Shortness of breath, tunnel catheter insertion site infection, ascites. REASON FOR CONSULTATION: Shortness of breath, tunnel catheter insertion site infection, ascites, assist with management, ESRD. CONSULTING PHYSICIAN: Dr. Barnett. HISTORY OF PRESENT ILLNESS: This is a 63-year-old gentleman known to our service for end-stage renal disease on hemodialysis. He has a tunnel dialysis catheter. He was discharged several days ago to [facility]. The patient presented to the dialysis clinic yesterday evening, and the dressing over his tunnel dialysis catheter was completely encrusted in dried blood. This was taken down and the site cleaned and evaluated. It was noted that he had significant erythema and some drainage noted to the insertion site for the catheter. Blood cultures were drawn prior to antibiotics being given, and the patient was given vancomycin in the clinic. He was sent to the hospital for further workup and treatment of this, as well as the fact that his ascites had become significant, and he was having increasing shortness of breath. The patient came into the ER. He was found to have severe ascites and paracentesis was arranged for him to have today. The patient had blood cultures redrawn at that time. His dressing and his insertion site was completely cleaned and re-dressed. This morning when I see the patient, he again has oozing all around the insertion site with significant erythema. Noted that the patient was treated with vitamin K last night. He had a chest x-ray that indicated shallow inspiration with atelectasis. He had an abdominal pelvis CT that showed a large amount of ascites and a small left pleural effusion, apparent cirrhosis with portal hypertension. PAST MEDICAL HISTORY: End-stage renal disease on hemodialysis Tuesday, Tuesday, Tuesday, cirrhosis secondary to FLORES, pancytopenia, hepatic encephalopathy, obesity, esophageal varices, chronic back pain, hypothyroidism, B 12 deficiency, coronary artery disease. SURGICAL HISTORY: He has had a fusion of L3-L4-L5, a lumbar laminectomy, right inguinal hernia repair, umbilical hernia repair, multiple paracentesis, tunnel dialysis catheter insertion in right chest wall. ALLERGIES: None. HOME MEDICATIONS: Celexa, Prilosec, lactulose, Synthroid, Zofran, Zyrtec, Xifaxan. FAMILY HISTORY: Cardiac disease. SOCIAL HISTORY: He lives in [facility]. No EtOH, tobacco or illicit drug use. He does have a DNR noted with a Living Will. REVIEW OF SYSTEM: Ascites, irritation/inflammation to the tunnel catheter site with oozing and bleeding, otherwise negative. PHYSICAL EXAMINATION: Vital Signs: Temperature 98.4 degrees, pulse 85, respiratory rate 17, blood pressure 106/52. Intake 350 mL; output not measured. General: This is a middle-aged gentleman, who appears much older than stated age and chronically ill-appearing. Currently laying in bed. He does not appear in distress. HEENT: Normocephalic, atraumatic. His oral mucosa is dry. Conjunctivae are pale. Neck: Supple without JVD. Cardiovascular: Regular rate and rhythm with distant heart sounds. No murmur noted. Pulmonary: He has decreased breath sounds. No rales. Abdomen: Significantly distended, firm. : Minimal void. Hemodialysis assist. Extremities: He has trace lower extremity edema. Integumentary: Skin is pale, warm and dry. Neurologic: Grossly nonfocal. LAB DATA: WBC of 4.9, hemoglobin 6.2. Sodium 132, potassium 3.3, CO2 22, BUN 32, creatinine 3.5. IMAGING: Again, chest x-ray with atelectasis and a CT scan with ascites, pleural effusion and portal hypertension. ASSESSMENT AND PLAN: 1. Chronic kidney disease 5 D. He normally dialyzes on Tuesday, Tuesday, Tuesday. He completed the dialysis treatment yesterday. There is nothing on his labs that would warrant emergent dialysis today. We will plan for next dialysis on Tuesday. 2. Question of tunnel catheter line infection. The patient had vancomycin dosed at the end of his dialysis treatment. His blood cultures are pending. He has no fever and his white count is in normal range at this time. The patient states that the area around the tunnel catheter is very irritating to him, and it is unclear if he is scratching and pulling at that catheter, or if it is just oozing without any interference. The patient was given some vitamin K yesterday secondary to his PTT of 50.7 and a PT of 25.9. 3. Hepatic encephalopathy, ascites. It is followed by primary. He has a paracentesis arranged for today. 4. Disposition: He has declined hospice care. He has a Living Will and is a do not resuscitate. Continue his current treatment plan. Dictated by KEVIN Murillo for Jose Reaves MD cc: MD Artem Morales MD
[2019-03-17] MEDS: LACTULOSE PO SCH ×3 (11:28→17:53)
[2019-03-17] MEDS: XIFAXAN PO SCH ×2 (11:29→20:39)
--- NOTE | 2019-03-17 11:43 | Diag Imaging Result Doc PS360 ---
EXAM: US ABD PARACENTESIS W S/I 03/16/2019 HISTORY: Ascites TECHNIQUE: Ultrasound-guided paracentesis COMMENT: The risks and benefits of procedure were discussed with the patient and he agreed to the procedure. Following sterile preparation of the skin and administration of 1% lidocaine to the skin and deeper soft tissues, the paracentesis catheter was placed laterally in the right abdomen and subsequently 9 L of dark zane fluid was drained. There are no immediate complications. IMPRESSION: Successful ultrasound-guided paracentesis. Electronically signed by Guy Buchanan 03/17/2019 11:41 AM
--- NOTE | 2019-03-17 12:57 | PROGRESS NOTE ---
DATE: 03/17/2019 SUBJECTIVE: The patient has shortness of breath. CT findings of massive ascites. Had dialysis yesterday. He is a little bit more alert than last night. PHYSICAL EXAMINATION: Vital Signs: Temperature is 98.4 degrees, pulse is 85, blood pressure 106/52. HEENT: Exam pale, slightly jaundiced. Chest: Bilateral air entry. Heart: Sounds are regular. Massive ascites noted with fluid thrill. LABS: CBC: White cell count 4.9, hematocrit 18.6, platelets 49. Sodium 133, potassium 3.3, BUN 32, creatinine 3.5. ASSESSMENT AND PLAN: 1. Shortness of breath due to intractable tense ascites. I spoke to Dr. Buchanan. He is going to perform paracentesis, drain 9 L of fluid. 2. Anemia due to hypersplenism. Keep the hematocrit above at least 25. Will transfuse during dialysis. 3. End-stage kidney disease as per dialysis by Dr. Reaves. 4. Coagulopathy. Vitamin K was given. 5. Ammonia encephalopathy on lactulose and Xifaxan. 6. Hypothyroidism on Synthroid. 7. Depression on Celexa. Poor prognosis. Continue supportive care. Living Will, DNR and Palliative Care consult also obtained. I appreciate Dr. Buchanan performing paracentesis this morning. LEVEL OF DOCUMENTATION: 25 minutes. cc: MD Artem Hernandes MD
[2019-03-17] MEDS: CELEXA PO SCH (20:39)
[2019-03-18] MEDS: SYNTHROID PO SCH (06:17)
[2019-03-18] MEDS: PRILOSEC PO SCH (06:17)
[2019-03-18 07:51] LABS: CALCIUM 8.3 mg/dL (8.8-10.2); CREATININE 4.1 mg/dL (0.7-1.2)
[2019-03-18 08:27] LABS: BASO# 0.02 X1000 (0.0-0.2); BASO% 0.7 % (0.0-0.8); EOS# 0.07 X1000 (0.0-0.7); EOS% 2.3 % (0.0-10.0); HEMATOCRIT 17.8 % (42.0-52.0); HEMOGLOBIN 5.9 g/dL (14.0-18.0); LYMPH# 0.48 X1000 (1.2-3.4); MCH 30.7 PG (27-31); MCHC 33.1 g/dL (33-37); MCV 92.7 FL (81-99); MONO# 0.48 X1000 (0.11-0.59); MPV 9.4 FL (7.4-10.4); NEUT# 1.95 X1000 (1.4-6.5); PLT 39 X1000 (130-400); RBC 1.92 XMIL (4.7-6.1); RDW 19.3 % (11.5-14.5)
[2019-03-18] MEDS ORDERED: NS 500 ML IV ONE (08:32)
[2019-03-18 08:45] LABS: ANISOCYTOSIS 1+; BANDS 4 % (0-1); HYPOCHROM 1+; LARGE PLATELETS 1+; LYMPHS 12 % (21-51); MONO 8 % (1-9); POIKILOCYTOSIS 1+; SEGS 76 % (42-75)
[2019-03-18] MEDS ORDERED: ATARAX PO ONE (10:36)
[2019-03-18] MEDS ORDERED: ATARAX PO PRN (10:39)
[2019-03-18] MEDS: XIFAXAN PO SCH ×2 (10:48→19:59)
[2019-03-18] MEDS: LACTULOSE PO SCH ×3 (10:48→18:13)
--- NOTE | 2019-03-18 14:24 | PROGRESS NOTE ---
DATE: 03/18/2019 SUBJECTIVE: The patient complains of itching and decreased shortness of breath. The patient did have paracentesis with 9 L of fluid removed. He is noncompliant with fluid restrictions as per the nurses. PHYSICAL EXAMINATION: Vital Signs: Temperature is 97 degrees, pulse 73, blood pressure is low. Weight 235 pounds. General: Slightly pale, jaundice. Lungs: Bilateral air entry. Heart: Distant heart sounds. Abdomen: Belly is soft. Still ascites. Extremities: There is 1+ pedal edema. LABORATORY DATA: CBC: White cell count 3, hematocrit 17.8, platelets 39,000. Sodium 131, potassium 3, BUN 43, creatinine 4.1. Blood cultures were negative. ASSESSMENT AND PLAN: 1. Shortness of breath due to intractable ascites, status post paracentesis with 9 units of fluid removed. 2. End-stage kidney disease, dialysis for tomorrow. 3. Line sepsis. Did receive vancomycin on Tuesday. 4. Hypersplenism causing pancytopenia. 5. Hematocrit is very low. Stool occult blood. No signs of active gastrointestinal bleeding. Will transfuse a unit of packed red blood cell, and then based on the numbers tomorrow, maybe he will require blood transfusion during dialysis. 6. End-stage kidney disease, on dialysis as per Dr. Reaves. 7. Itching, probably due to chronic kidney disease. Hydroxyzine as needed. 8. Depression, on Celexa. 9. Continue lactulose to prevent ammonia encephalopathy, on Xifaxan. 10. Hypothyroidism, on Synthroid. Dr. Quiroga is going to follow up in the morning. Living will, DO NOT RESUSCITATE. Palliative Care consult was also obtained. LEVEL OF DOCUMENTATION: 25 minutes. cc: MD Artem Hernandes MD
--- NOTE | 2019-03-18 15:20 | NEPHROLOGY PROGRESS NOTE ---
DATE: 03/18/2019 SUBJECTIVE: Patient resting in bed. He underwent a paracentesis yesterday without difficulty had 9 L removed. OBJECTIVE: Vital Signs: Temperature 98.2 degrees, pulse 84, respiratory rate 18, blood pressure 104/60 EXAM: General: This is a chronically ill-appearing elderly gentleman resting in bed, he is awake, alert, oriented no acute distress. HEENT: Normocephalic, atraumatic. Conjunctivae are pale. Oral mucosa moist, dentition poor. Neck: Was supple without JVD. Cardiovascular: Regular rate and rhythm. Pulmonary: He is clear bilaterally with no increased work of breathing. Abdomen: Distended but full today, nontender . : Minimal void, hemodialysis assist. Extremities: Trace lower extremity edema, is moving all extremities without difficulty. Integument: Skin is warm and dry, quite pale. Tunnel dialysis catheter site has a large gelatinous amount of non coagulated blood underneath it. Neurologic: Grossly nonfocal. LAB DATA: WBC of 3.0, hemoglobin 5.9, platelets of 39,000. Sodium 131, potassium 3.0, chloride 97, CO2 23, BUN 43, creatinine 4.1. ASSESSMENT AND PLAN: 1. Chronic kidney disease 5D . Next dialysis treatment planned for tomorrow, check labs in the morning to determine his dialysis bath. 2. Thrombocytopenia in setting of cirrhosis. His platelets are 39,000 and it appears that he is having continual oozing from around the surgical site insertion site of the catheter, patient was given vitamin K yesterday . I have also asked the nurse to remove that dressing clean that site and replace it with a new sterile central line dressing. 3. Question of tunneled catheter infection His cultures have been negative. Again he was given a dose of vancomycin at the dialysis clinic prior to coming to the hospital and he did have blood cultures drawn there prior to that dose being given. We should be able to obtain those results by tomorrow. 4. Hepatic encephalopathy, ascites, cirrhosis followed by primary, again he had paracentesis with a large amount of fluid removed. Dictated by KEVIN Murillo for Jose Reaves MD cc: MD Artem Morales MD [facility]
[2019-03-18] MEDS: CELEXA PO SCH (19:59)
[2019-03-19 05:38] LABS: BASO# 0.02 X1000 (0.0-0.2); BASO% 0.4 % (0.0-0.8); EOS# 0.18 X1000 (0.0-0.7); EOS% 3.9 % (0.0-10.0); HEMATOCRIT 20.5 % (42.0-52.0); IMM GRAN# 0.02 X1000 (0.0-0.04); IMM GRAN% 0.4 % (0.0-0.5); LYMPH# 0.63 X1000 (1.2-3.4); LYMPH% 13.5 % (20.5-51.1); MCH 31.4 PG (27-31); MCHC 34.1 g/dL (33-37); MCV 91.9 FL (81-99); MONO# 0.77 X1000 (0.11-0.59); MONO% 16.5 % (1.7-9.3); MPV 9.7 FL (7.4-10.4); NEUT# 3.05 X1000 (1.4-6.5); NEUT% 65.3 % (42.2-75.2); PLT 62 X1000 (130-400); RBC 2.23 XMIL (4.7-6.1); RDW 18.8 % (11.5-14.5); WBC 4.67 X1000 (4.8-10.8)
[2019-03-19] MEDS: SYNTHROID PO SCH (05:42)
[2019-03-19] MEDS: PRILOSEC PO SCH (05:42)
[2019-03-19 06:04] LABS: CALCIUM 8.3 mg/dL (8.8-10.2); CREATININE 4.7 mg/dL (0.7-1.2); POTASSIUM 3.1 mmol/L (3.5-5.1)
[2019-03-19] MEDS ORDERED: HEPARIN IV PRN (06:19)
[2019-03-19] MEDS ORDERED: TIGHT: 0.2 ML/HR FOR DIALYSIS MISC PRN (06:19)
[2019-03-19] MEDS ORDERED: NS 2,000 ML MISC PRN (06:19)
[2019-03-19] MEDS: XIFAXAN PO SCH ×2 (09:16→21:40)
[2019-03-19] MEDS: LACTULOSE PO SCH ×3 (09:17→18:03)
--- NOTE | 2019-03-19 10:02 | NEPHROLOGY PROGRESS NOTE ---
DATE: 03/19/2019 Date Seen: 03/19/2019 Time Seen: 0720 SUBJECTIVE: Mr. Sotelo is resting quietly in bed, states that he is feeling well. He is confused as to his most recent hospitalization secondary to 3 hospitalizations within 1 month. OBJECTIVE: Vital Signs: Temperature 98.5 degrees, blood pressure 95/56, heart rate 74, respirations 18. He is on room air. Last recorded saturation 98%. He has had 1522 in. He has had 0 recorded out. LABS: Sodium is 128, potassium 3.1, chloride 94, CO2 22, BUN 51, creatinine 4.7, glucose 93. His anion gap is 12. His calcium is 8.3. His ammonia level is 24. White count 4.67. Hemoglobin 7, hematocrit 20.5 with a platelet count of 62,000. The patient has negative blood cultures, positive for occult stool. PHYSICAL EXAMINATION: General: This is a 63-year-old white male resting quietly in bed. He appears chronically ill in no acute distress. Skin: Warm and dry. HEENT: Normocephalic, atraumatic. Conjunctiva is pale. He has arcus senilis present. Poor dentition present. Mucous membranes are dry. Neck: Supple. Trachea midline. He is without jugular venous distention. Cardiovascular: He is regular rate and rhythm. S4 is present. Lungs: Clear to auscultation bilaterally. Equal excursion. Diminished to the bases. He is on room air. Abdomen: Distended tympanic hypo bowel sounds. Genitourinary: Not inspected. Minimal void with dialysis assist. Extremities: Continues with 2+ lower extremity edema. Integumentary: Patient has a dialysis tunneled catheter to the right upper chest wall. This appears reddened underneath the op-site with some gelatinous blood at the exit site. Neurological: He is alert and oriented to person and to place. ASSESSMENT AND PLAN: 1. Chronic kidney disease stage 5 D. Patient is due for his routine dialysis treatment today. We will place him on a 3 K bath. He is to dialyze for 3.5 hours. We will attempt to pull him to his outpatient dry weight + 1 kilo. 2. Electrolytes and acid-base balance with correction on dialysis. 3. Anemia. Hemoglobin of 7. The patient has a unit of packed red blood cells ordered to be transfused on dialysis today per primary care with our assistance. 4. Ascites secondary to hepatic encephalopathy with cirrhosis. The patient had a paracentesis last week for a large amount of fluid removal on Tuesday of 9.1 L. We will continue to monitor and evaluate and see if we can assist with dialysis for fluid management. I would to thank you for allowing us to follow with this patient. Dictated by KEVIN Garza for Jose Reaves MD Face to face encounter, data reviewed, discussed with Lindsay Mcintyre on 03/19/19. I agree with the above assessment and plan of care. cc: KEVIN Garza MD [facility], MD [facility] [place] DIVISIONOnesimo
--- NOTE | 2019-03-19 14:12 | PROGRESS NOTE ---
DATE: 03/19/2019 SUBJECTIVE: The patient has returned to the hospital over the weekend. He was sent back from long term, long-term care facility. This makes the second time he was discharged to this long- term healthcare facility, but before we can get out, they are good. He is discharged back to the hospital. He does have pronounced medical problems. He is a DNR level 1. He is on hemodialysis on Tuesday, Wednesdays, and Fridays and is supposed to be transferred to hemodialysis via ambulance on the Mondays, Wednesdays and Fridays for his dialysis treatments per Dr. Reaves at [facility]. The patient suffers from cirrhosis of the liver related to FLORES. This is end stage. He is DNR level 1. He has chronic hypersplenism and as a result has chronic pancytopenia to include platelet count ranging in the 40s primarily. He has esophageal varices, but has not had significant bleeding from those, although he does have some faintly heme-positive stools very frequently. They were concerned about some oozing from his dialysis catheter site and indeed his hemoglobin dropped to the 5.9 range and he has received 1 unit of PRBCs. His hemoglobin is 7.0 this morning. He is receiving another unit of PRBCs during his dialysis this morning. He takes blood about once a week due to this chronic pancytopenia. He also is scheduled by Dr. Bonilla to have ultrasound guided paracentesis of the ascites with large volume removal about every 14 days and he had that at admission on 03/16/2019. The patient is stable in regard to his mentation currently. He is alert and oriented x2. He is at his baseline. He suffers from hepatic encephalopathy and has some off and on waxing and waning confusion, but is at his baseline now. His ammonia day before yesterday was 24. The patient remains on t.i.d. lactulose and Xifaxan 550 b.i.d. Currently is his baseline and stable. OBJECTIVE: Afebrile. Pulse 79, respirations 16, blood pressure 100/59. O2 saturation room air 100%. Ascites, mild to moderate over his abdomen, 1+ lower extremity edema. No major oozing, although there is some old blood around the hemodialysis catheter site.CV: RRR without murmur. Lungs: CTA. Neurologic: He moves all extremities well. No focal deficits. Alert and oriented x2. LABS: Today show hemoglobin of 7, white count of 4.6, platelets 62,000. Sodium 128, potassium 3.1, chloride 94, CO2 22, BUN 51, creatinine 4.7, calcium 8.3. ASSESSMENT: 1. Cirrhosis of the liver secondary to nonalcoholic steatohepatitis, end-stage. 2. Pancytopenia secondary to hypersplenism with chronic thrombocytopenia with platelet count ranges around 40 primarily on average. 3. Esophageal varices with heme-positive stools. No signs of severe active bleeding. 4. Hepatic encephalopathy, stable on his high dose lactulose and Xifaxan. 5. Morbid obesity. 6. Chronic back pain. 7. Hypothyroidism, stable on his thyroid medication. 8. End-stage renal disease on hemodialysis. 9. Coronary artery disease. 10. History of B12 deficiency. PLAN: Son cannot care for him at home, so we will continue to try to assist in finding a place where he can be managed and kept on his hemodialysis Tuesday, Wednesdays, and Fridays. This will need a special long-term care facility that can manage his long-term difficulties. He will continue to receive blood during hemodialysis about once a week. He will need 2 to 3 units. He is going to need ultrasound-guided paracentesis at least ever 14 days. He will remain on high dose lactulose and Xifaxan and he will continue his Synthroid. He will remain at DNR level 1. We tried to get hospice care admission before last and he did not qualify for hospice care, so will continue to work with the social workers and palliative care team in regard to long-term options. We will ask Dr. Bonilla to consult and see if he has any suggestions. cc: Artem Quiroga MD
--- NOTE | 2019-03-19 17:05 | PROGRESS NOTE ---
DATE: 03/19/2019 Long discussion had with patient and his son. The patient's son is the decision maker as his father is incompetent. The patient's mentation comes and goes with his hepatic encephalopathy. Today he is alert and oriented x2 but at times he does not know the situation, does not know where he is in the situation of his medical care. His son, Yann, has made decision that he does not desire to continue hemodialysis treatments and I spoke with Igor in detail and he is in agreement not to continue hemodialysis treatments and wishes to remain at DNR level 1. He desires hospice care with comfort measures and we will pursue this at this time with no further dialysis treatments to be obtained. Hospice team of [facility] is in attendance and they are going to work whether this hospice will be carried out inpatient versus at the long-term care facility at [facility]. Again, patient is in agreement with stoppage of dialysis as his son recommends and as I recommend. cc: Artem Quiroga MD
[2019-03-19] MEDS ORDERED: ATIVAN IV PRN (17:17)
[2019-03-19] MEDS: MORPHINE IV PRN (18:03)
[2019-03-19] MEDS: CELEXA PO SCH (21:40)
[2019-03-19] MEDS: ZOFRAN IV PRN (22:45)
[2019-03-20] MEDS: MORPHINE IV PRN ×4 (04:48→16:22)
[2019-03-20] MEDS: PRILOSEC PO SCH (06:21)
[2019-03-20] MEDS: SYNTHROID PO SCH (06:21)
[2019-03-20] MEDS: ZOFRAN IV PRN ×3 (07:44→21:32)
--- NOTE | 2019-03-20 09:25 | PROGRESS NOTE ---
DATE: 03/20/2019 SUBJECTIVE: Patient is stable. He denies pain or discomfort at this time. He is alert. He is refusing his lactulose. He has had low blood pressures. OBJECTIVE: Vital Signs: Systolics of 78, currently diastolic 38, respirations 16, and pulse 66. Afebrile. CV: RRR. Lungs: Clear. Abdomen: Very prominent ascites. Extremities: 1+ lower extremity edema. Neurologic: Nonfocal. Alert and oriented x2. ASSESSMENT: 1. DNR level 1. Awaiting hospice care. 2. Hypotension. 3. Cirrhosis of the liver, end-stage secondary to FLORES. 4. ESRD, previously on hemodialysis now with he and his son declining additional hemodialysis. He has spoken with Dr. Reaves this morning in that regard. 5. Pancytopenia secondary to hypersplenism, prominent. 6. Esophageal varices with heme-positive stools. 7. Hepatic encephalopathy. 8. Morbid obesity. 9. Chronic back pain. 10. Hypothyroidism. 11. Coronary artery disease. 12. History of B12 deficiency. PLAN: Continue present supportive measures. DNR level 1. Portable. Signed and placed on the chart. Continue morphine p.r.n. IV and Ativan IV as needed. Likely discharge back to [facility] on hospice care today if hospice deems appropriate. cc: Artem Quiroga MD
[2019-03-20] MEDS: LACTULOSE PO SCH ×3 (13:23→16:24)
--- NOTE | 2019-03-20 14:45 | DISCHARGE SUMMARY ---
ADMISSION DATE: 03/16/2019 DISCHARGE DATE: 03/20/2019 DIAGNOSES: 1. DO NOT RESUSCITATE level 1 with palliative/hospice care arranged at long-term care facility [facility]. 2. Hypotension. 3. Cirrhosis of the liver, end-stage secondary to nonalcoholic steatohepatitis. 4. End-stage renal disease, previously on hemodialysis, now with son declining. Patient to remain on hemodialysis, and patient also in agreement not to continue to pursue hemodialysis. Dr. Reaves spoke with the patient this morning about discontinuation of the hemodialysis in detail as well. 5. Pancytopenia secondary to hypersplenism to include chronic anemia and chronic thrombocytopenia. 6. Esophageal varices with Hemoccult-positive stools. 7. Hepatic encephalopathy. 8. Morbid obesity. 9. Chronic back pain. 10. Hypothyroidism. 11. Coronary artery disease. 12. History of B12 deficiency. CONSULTANTS: 1. Dr. Reaves, Nephrology. 2. [facility]. 3. Dr. Bonilla, Gastroenterology. PROCEDURES: 1. CT scan of abdomen and pelvis revealing a large amount of ascites, small pleural effusion, cirrhosis with portal hypertension, mildly small bilateral kidneys. 2. Chest x-ray done on admission reveals shallow aspiration, subsegmental atelectasis at the left lung base, otherwise no acute disease. 3. Ultrasound-guided paracentesis done on 03/16/2019 with successful removal of 9 L of dark zane fluid. REASON FOR ADMISSION AND HOSPITAL COURSE: The patient is a 63-year-old white male, followed in my medical practice, who suffers from end-stage cirrhosis of the liver, and pronounced ascites, and this is all related to FLORES. Complications of this include esophageal varices with Hemoccult- positive stools, hepatic encephalopathy, end-stage renal disease on hemodialysis, pancytopenia secondary to hypersplenism. The patient has been undergoing hemodialysis, but his son is not able to manage the patient at home. He has been in and out of the hospital here at [facility]. He has been evaluated and stayed 2 months at [facility], and was found not to be a candidate for a TIPS procedure or liver transplant due to coronary artery disease. He has been made DO NOT RESUSCITATE level 1 in the past month or so, and blood pressures have been running low, and dialysis has been difficult. The patient's son is his Power of Sales Coach and has declined for him to remain on hemodialysis, and the patient is in total agreement not to continue hemodialysis. Hospice care was consulted, and he was not a candidate for inpatient hospice. Hospice was arranged through the long-term care facility at [facility], and will continue palliative measures there to include morphine 2 mg IV every 4 hours p.r.n. pain, Ativan 0.5 mg IV every 4 hours p.r.n. agitation. He will be on Celexa 20 mg p.o. at bedtime, Atarax 25 mg p.o. every 8 hours p.r.n. itching, lactulose 30 mL p.o. t.i.d., Synthroid 150 mcg p.o. daily, Calmoseptine ointment as needed to skin, Prilosec 20 mg p.o. daily, Xifaxan 550 mg p.o. b.i.d. Nursing staff was instructed not to use the Ativan or the morphine sulfate unless the patient has severe agitation or pain which requires the medication to be given. The patient knows he can return to the hospital in [facility] should he have that desire. He is in a DO NOT RESUSCITATE level 1, and a portable DO NOT RESUSCITATE level 1 was signed. Meredith, the director of social media marketing, has arranged for the [facility] facility to take over palliative/hospice care at their facility as they will not allow [facility] to come into that facility. Continue supportive measures. ADDENDUM: Pt's son appealed to medicare and discharge to [facility] facility stopped and pt kept under care at [facility] until appeal complete. cc: MD JEREMY Quevedo
[2019-03-20] MEDS: XIFAXAN PO SCH ×2 (14:51→21:20)
--- NOTE | 2019-03-20 19:26 | GASTROENTEROLOGY CONSULTATION ---
DATE: 03/20/2019 REASON FOR CONSULTATION: Cirrhosis of the liver, Hemoccult-positive stool. HISTORY OF PRESENT ILLNESS: This is a 63-year-old male well known to our practice. He has had multiple hospitalizations over the last several months for altered mental status, encephalopathy, ascites. Patient was just recently in the hospital and discharged several days ago to [facility] rehab, he was receiving dialysis but from records reviewed the catheter had become infected. Patient came into the hospital on 03/16/2019 for shortness of breath, no reported chest pain. He had a paracentesis on admission on 03/16/2019 with 9 L of dark zane fluid removed. During this hospitalization patient has decided to discontinue dialysis and he would like to be admitted to hospice. There has been reported black tarry stools. He also has anemia. At the time of my evaluation today patient was alert and oriented. He had family members at the bedside including a sister. PAST MEDICAL HISTORY: Cirrhosis of the liver secondary to FLORES, hepatic encephalopathy, history of esophageal varices, chronic back pain, end-stage renal disease on hemodialysis. Coronary artery disease. PAST SURGICAL HISTORY: Back surgeries, right inguinal hernia repair, umbilical hernia repair, multiple paracentesis, dialysis catheter placement. ALLERGIES: No known drug allergies. HOME MEDICATIONS: Celexa 20 mg every night, Atarax 25 mg every 8 hours as needed, lactulose 30 mL 3 times a day, Synthroid 150 mcg daily, Ativan 0.5 mg IV every 4 hours as needed, calmoseptine ointment as needed, morphine 2 mg as needed, Prilosec 20 mg daily, Zofran 4 mg every 6 hours as needed, Xifaxan 550 mg twice a day. SOCIAL HISTORY: Has has recently been residing in a custodial. PHYSICAL EXAM: Vital Signs: Temperature 97.2 degrees, pulse 70, respiration 16, blood pressure 87/45. General: Patient is awake and alert at the time of my evaluation, he has family at the bedside. HEENT: Normocephalic, atraumatic. Pupils equal, round, reactive to light. Respiratory: Lung sounds essentially clear. Cardiovascular: Regular rate and rhythm. Abdomen: Distended with ascites. Extremities: With lower extremity edema noted. DIAGNOSTIC RESULTS: Laboratory. Hematology. WBC 4.67, hemoglobin 7.0, hematocrit 20.5, MCV 91.9, platelet 62,000. Chemistry, sodium 128, potassium 3.1, chloride 94, CO2 of 22, BUN 51, creatinine 4.7, glucose 93, calcium 8.3. Recent paracentesis on 03/16 showed 9 L of dark zane fluid removed. ASSESSMENT AND PLAN: 1. Cirrhosis of the liver end stage. 2. End-stage renal disease. Patient was on dialysis and has now decided to stop dialysis, patient has spoken with Dr. Reaves. 3. Hepatic encephalopathy. Continue current medications. 4. Hypotension. 5. Other medical problems back pain, hypothyroidism, coronary artery disease. 6. Continue supportive care. Patient has decided to be admitted to hospice care. He has refused dialysis and refused some of his medications including lactulose. Will continue to follow. I believe there are plans for him to be discharged to [facility] under hospice care. I have discussed this case with Dr. Bonilla. Thank you for this consultation. Dictated by KEVIN Saenz for Prosper Bonilla MD cc: KEVIN Watson MD Stephen W. Harbin, MD [facility]
--- NOTE | 2019-03-20 20:32 | NEPHROLOGY PROGRESS NOTE ---
DATE: 03/20/2019 TIME SEEN: 07 SUBJECTIVE: Mr. Sotelo is resting quietly on his side. States that he had talked with his family and wishes to stop hemodialysis after talking with Dr. Quiroga yesterday afternoon. Denies discomfort at this time. OBJECTIVE: Temperature 98.1 degrees, blood pressure 89/54, heart rate 75, respirations are 20, he is on room air, last recorded saturation 94%, 535 in, 0 recorded out, no labs today, previous sodium of 128 with a previous potassium 3.1, previous hemoglobin 7.1. PHYSICAL EXAM: This is a 63-year-old white male who currently has recently discussed stopping his hemodialysis. He appears in no acute distress though chronically ill.Skin: Warm and dry. HEENT: Normocephalic, atraumatic. Conjunctivae pale. He has GENE. Mucous membranes are dry. Neck: Supple. Trachea midline. No evidence of JVD in his supine position. Cardiovascular: He is regular rate and rhythm, he has an S4. Lungs: Clear to auscultation anteriorly, equal excursion. He is on room air. Abdomen: Large, round, distended, hypo bowel sounds. Genitourinary: Not inspected, minimal urine out. Extremities: Continue with 2+ lower extremity edema. Integumentary: Tunnel catheter to the right upper chest wall slightly reddened under OpSite. Neurologic: He is alert and oriented to person and to place and recent events. ASSESSMENT AND PLAN: Chronic kidney disease stage 5D. Patient has indicated that he would like to withdraw from hemodialysis at this time and be placed into hospice care after speaking with his family and Dr. Quiroga yesterday evening. We have spoken to the patient survival expectations in the average of patient who have stopped dialysis, we have indicated that he will get sleepy and that this is usually peaceful. The patient states understanding. We will sign out this time. We will remain available if needed during this hospital stay. Like to thank you for allowing us to follow with this patient. Dictated by KEVIN Garza for Jose Reaves MD Face to face encounter, data reviewed, discussed with Lindsay Mcintyre on03/20/19. I agree with the above assessment and plan of care. cc: KEVIN Garza MD Stephen W. Junaid, MD [facility]
[2019-03-21] MEDS: ZOFRAN IV PRN ×2 (05:41→09:10)
[2019-03-21] MEDS: MORPHINE IV PRN (05:41)
[2019-03-21] MEDS: PRILOSEC PO SCH (06:06)
[2019-03-21] MEDS: SYNTHROID PO SCH (06:06)
[2019-03-21] MEDS: LACTULOSE PO SCH ×3 (08:56→16:48)
[2019-03-21] MEDS: XIFAXAN PO SCH ×2 (09:15→21:53)
[2019-03-21] MEDS ORDERED: DILAUDID PO PRN (10:00)
[2019-03-21] MEDS ORDERED: DILAUDID IV PRN (10:01)
[2019-03-21] MEDS ORDERED: ATROPINE 1 % OPHTH SOLN SL PRN (10:02)
[2019-03-21] MEDS ORDERED: BENADRYL IV PRN (10:04)
[2019-03-21] MEDS: DILAUDID PO SCH ×3 (11:23→18:26)
[2019-03-21 18:34] VITALS: BP 72/40
--- NOTE | 2019-03-21 19:21 | PROGRESS NOTE ---
DATE: 03/21/2019 SUBJECTIVE: Patient is arousable. He has had some nausea and apparently some emesis, so we will change him back from a regular diet to clear liquids. He is not overly sedated. He is without discomfort at this time. Continue present supportive medications. Continue DNR level 1/hospice care. cc: Artem Quiroga MD
--- NOTE | 2019-03-21 19:56 | GASTROENTEROLOGY PROGRESS NOTE ---
DATE: 03/21/2019 SUBJECTIVE: The patient was resting. He was alert and oriented. He had family at the bedside at that time on my visit. Decision has been made for him to do inpatient hospice. His diet has been changed to a regular diet. I have talked with the family and if they want to bring him something in from outside that he would like. He was not liking his lunch today. He can have something brought in that he would like to eat. OBJECTIVE: Vital Signs: Temperature 97.6 degrees, pulse 79, respirations 17, blood pressure 95/54. General: The patient was resting in no acute distress. LABORATORY: Hematology: WBC 4.67, hemoglobin 7.0, hematocrit 20.5, MCV 91.9, platelets 62,000. Chemistry sodium 128, potassium 3.1, chloride 94, CO2 of 22, BUN 51, creatinine 4.7, glucose 93. ASSESSMENT AND PLAN: 1. Cirrhosis of the liver, end-stage. 2. End-stage renal disease. The patient has decided to stop dialysis and stopped all treatment. We will continue with comfort measures. He has currently been transitioned to inpatient hospice. Gastrointestinal will sign off. Please re-consult if needed. I have discussed this case with Dr. Bonilla. Dictated by KEVIN Saenz for Prosper Bonilla MD cc: KEVIN Watson MD Stephen W. Harbin, MD
== END 2019-03-21 22:14 | disposition hospice, inpatient (51) | DRG 432 ==
LOC: SUPCPDRO → ED 16:50 → 1N 21:44
PROVIDERS: ADMIT Family Medicine; ATTEND Family Medicine

== ENCOUNTER 2019-03-21 18:45 | Inpatient (IN) ==
--- NOTE | 2019-03-21 10:00 | HISTORY AND PHYSICAL ---
Admisson to Hospice HISTORY OF PRESENT ILLNESS: The patient is a 63-year-old white male followed in my medical practice. He has also been followed by Dr. Reaves and Dr. Hall. He suffers from cirrhosis of the liver related to FLORES and is not a candidate for TIPS procedure or liver transplant as he was evaluated at [facility] and found to have coronary artery disease, significant enough that prohibited this from occurring. The patient has pronounced ascites, has hypersplenism with pancytopenia, has some oozing occasionally from the hemodialysis catheter site. He had been on hemodialysis until about 3 days ago when that was stopped at patient request and at his son's request. He does suffer from hepatic encephalopathy and at times is in an out with his mentation, so his son, Yann, is relegated to power of trust and estates attorney and both are in agreement. Both he and the patient are in agreement. They desire to stop the hemodialysis. Thus, he is now been admitted to hospice care. He qualifies due to significant hypotension for further details see H P done on this admission on 03/16/2019 in detail. Also see discharge summary done 03/20/2019, which no longer will apply as the patient is not going to [facility] but will be kept inpatient hospice care here, under [facility] in the hospital. We plan to continue his Xifaxan and lactulose if he is able to tolerate that. We will continue comfort measure with morphine and Ativan as needed. PHYSICAL EXAMINATION: He is in no discomfort currently. He is alert and oriented x2, moves all extremities well. No focal deficits. Cranial nerves intact. CV RRR without murmur. Lungs: CTA prominent, ascites noted. Extremities: 1 to 2+ lower extremity edema, left greater than right. No signs of bleeding. ASSESSMENT/PLAN: Continue supportive measures. Will change him from clear liquids to a regular diet at his request as he feels like he can eat. Concentrate on comfort measures. The patient notably is DNR level 1 as he has been in previous admissions and this admission. cc: Artem Quiroga MD
[2019-03-21] MEDS ORDERED: DILAUDID PO PRN (23:30)
[2019-03-21] MEDS ORDERED: ZOFRAN IV PRN (23:44)
[2019-03-21] MEDS ORDERED: BENADRYL IV PRN (23:46)
[2019-03-21] MEDS ORDERED: ATIVAN PO PRN (23:48)
[2019-03-22] MEDS: ATROPINE 1 % OPHTH SOLN SL SCH ×4 (03:18→23:03)
[2019-03-22] MEDS: DILAUDID IV PRN ×2 (10:09→14:48)
--- NOTE | 2019-03-22 13:34 | PROGRESS NOTE ---
DATE: 03/22/2019 SUBJECTIVE: The patient is stable on hospice care in the hospital. He denies pain. He is alert. He is talking to the relatives who are at his bedside this morning. OBJECTIVE: Afebrile, pulse 70, blood pressure is 70/45, O2 saturation on room air of 92%. CV: RRR without murmur. Lungs: Clear. Abdomen: Very prominent ascites. Extremities: Trace to 1+ lower extremity edema. Neurologic: Alert and oriented x2. He moves all extremities well. No focal deficits. ASSESSMENT: 1. Hospice care with Do Not Resuscitate level 1. 2. Hypotension. 3. End-stage renal disease with the patient off of hemodialysis now, per his request and his son's request. 4. Intractable ascites related to cirrhosis of the liver secondary to nonalcoholic steatohepatitis, with patient being turned down by [facility] for transjugular intrahepatic portosystemic shunt procedure and liver transplant. 5. Hypersplenism with prominent pancytopenia. 6. Esophageal varices with no active bleeding. 7. Hepatic encephalopathy, currently stable with patient now off of his lactulose and Xifaxan, and on comfort measures. 8. Coronary artery disease. PLAN: Continue comfort care/hospice care. cc: Artem Quiroga MD
--- NOTE | 2019-03-22 19:16 | PROGRESS NOTE ---
DATE: 03/22/2019 SUBJECTIVE: Patient resting comfortably. He is arousable with his son and family members in attendance. He has been able to talk with them on occasion. He denies any pain, appears very comfortable. He has taken some oral Dilaudid just very recently and has taken some IV Dilaudid earlier. OBJECTIVE: Cardiovascular: RRR. Rare ectopy. Lungs: Clear. Very prominent ascites. Extremities: No calf tenderness, cords, or edema. Neurologic: Patient is arousable and answers some questions. Moderate confusion, but answers some questions appropriately. ASSESSMENT: Hospice care. PLAN: The patient seems comfortable with current medication regimen. Continue the same. Expect worsening from possible hepatic encephalopathy and worsening related to his kidney disease. cc: Artem Quiroga MD
[2019-03-22] MEDS: DILAUDID PO SCH ×3 (21:16→21:17)
[2019-03-23] MEDS: DILAUDID PO SCH ×6 (01:01→22:52)
[2019-03-23] MEDS: ATROPINE 1 % OPHTH SOLN SL SCH ×3 (10:04→23:49)
--- NOTE | 2019-03-23 10:35 | PROGRESS NOTE ---
DATE: 03/23/2019 SUBJECTIVE: The patient is alert. He answers questions appropriately. Denies discomfort. Denies nausea. OBJECTIVE: Vital signs: Afebrile, pulse 73, respirations 18, blood pressure 93/46, O2 saturation on room air 97%. CV: RRR without murmur or ectopy. Lungs: Clear. Abdomen: Very prominent ascites. Extremities: Trace to 1+ lower extremity edema. Neurologic: Alert and oriented x2. He moves all extremities well. No major confusion identified. Answers questions. Says he was able to eat some yesterday without nausea. Family was in attendance yesterday with him. Skin: Possible mild jaundice. ASSESSMENT: 1. Hypotension off and on. 2. End-stage renal disease with patient off of hemodialysis. 3. Do Not Resuscitate level 1/hospice care. 4. Intractable ascites with cirrhosis of the liver end-stage secondary to nonalcoholic steatohepatitis. 5. Hypersplenism with prominent pancytopenia. 6. Esophageal varices with no active bleeding. 7. Hepatic encephalopathy off of lactulose and Xifaxan. 8. Coronary artery disease. PLAN: Continue comfort measures with Dilaudid, Ativan, Zofran. The patient appears comfortable. Family has been visiting periodically. Continue present care. cc: Artem Quiroga MD
[2019-03-23] MEDS: ATIVAN IV PRN ×3 (10:58→23:44)
[2019-03-23] MEDS: DILAUDID IV PRN ×3 (14:28→23:44)
[2019-03-24] MEDS: DILAUDID PO SCH ×4 (00:34→15:38)
[2019-03-24] MEDS: DILAUDID IV PRN ×3 (03:24→11:55)
[2019-03-24] MEDS: ATIVAN IV PRN ×2 (03:24→13:39)
[2019-03-24] MEDS: ATROPINE 1 % OPHTH SOLN SL SCH (09:08)
[2019-03-24 13:10] VITALS: BP 60/50
--- NOTE | 2019-03-24 16:26 | PROGRESS NOTE ---
DATE: 03/24/2019 SUBJECTIVE: Mr. Sotelo is not doing well. The patient is more short of breath, at times gasping for the air. According to son, his clinical condition deteriorated lately. Hospice nurse was present. Son wants me to increase comfort medicine. No nausea or vomiting. No fever or chills. Denied any chest pain. The patient is not communicating. Admission history and physical noted. OBJECTIVE: Blood pressure is low, 60/50. Pulse 66, respiration rate 14, temperature 95 degrees. The patient is not communicating. Decreased air entry of both lower lung aparicio. Cardiovascular: S1 and S2 heard. Abdomen: Distended. Had ascites. Bilateral leg swelling. Central nervous system: The patient was not communicating and poorly responsive. CONSIDERATION: 1. End-stage liver failure. 2. Respiratory failure. PLAN: The patient is terminally ill. I did discuss with patient's son about his clinical condition, and son understood and agreed, and I increased his comfort medicine. cc: MD Artem Rivas MD
== END 2019-03-24 15:15 | disposition expired | DRG 682 ==
LOC: 1N 18:45
PROVIDERS: ADMIT Family Medicine; ATTEND Family Medicine